=== PATIENT | male | born 1945 | race Caucasian/White ===

== ENCOUNTER → 2016-06-26 | Outpatient (CLI) | payer OTHER | LOC: C.LAB 22:20 | DX: Z02.83 Encounter for blood-alcohol and blood-drug test (principal) ==

== ENCOUNTER 2022-09-17 15:51 | Observation (INO) ==
--- NOTE | 2022-09-17 16:36 | Emergency Department Note ---
History of Present Illness General Chief complaint: Hypertension Stated complaint: REF BY DOC,HIGH BP,DIZZY Time Seen by Provider: 09/17/22 16:14 Source: patient and RN notes reviewed Mode of arrival: ambulatory Limitations: no limitations History of Present Illness Maximum Pain Intensity: 0 This patient is 76-year-old male who comes in after being sent over by his doctor. His blood pressure was 212/90 in the office has been feeling dizzy for the last 3 to 4 days he says mostly when he was walking or moving but now its been more persistent he says he drove here and feels okay at present. He had no fall or trauma he is on 2 blood pressure medications but takes them very sporadically and often misses the evening doses in particular. He denies any syncope or chest pain or shortness of breath. No difficult speaking or swallowing no headache no focal numbness weakness. no fever chills. no abdominal or back pain. Home Medications Medication Instructions Recorded Confirmed Type atorvastatin 40 mg tablet 40 mg PO QAM 11/08/19 09/17/22 History candesartan 32 mg tablet 32 mg PO QAM 11/08/19 09/17/22 History ibuprofen 200 mg tablet (Advil) 200 mg PO Q4 PRN Pain 11/08/19 09/17/22 History aspirin 81 mg tablet,delayed 81 mg PO DAILY #30 tabs 11/12/19 09/17/22 Rx release carvedilol 12.5 mg tablet 12.5 mg PO AMHS 11/16/21 09/17/22 History fluticasone propionate 50 2 spray intranasal QAM 11/16/21 09/17/22 History mcg/actuation nasal spray,suspension amlodipine 10 mg tablet 10 mg PO DAILY 11/17/21 09/17/22 History hydrochlorothiazide 25 mg tablet 25 mg PO DAILY 09/17/22 09/17/22 History meclizine 25 mg tablet 25 mg PO TID PRN Dizziness 09/17/22 09/17/22 History Allergies Allergy/AdvReac Type Severity Reaction Status Date / Time No Known Allergies Allergy Unverified 11/17/21 00:02 Past Med/Surg History Medical History (Updated 09/17/22 @ 23:17 by Carmine Moreno MD) Carotid stenosis Left > right side History of kidney stones Hyperlipidemia Hypertension Vertigo Surgical History History of appendectomy History of arthroscopy of left shoulder History of colonoscopy 2018 History of tonsillectomy Family History Other Heart disease Social History Smoking Status: Never smoker Second Hand Exposure: No; Do You Dip or Chew Tobacco: No; Tobacco Cessation Education Requested by Patient: No Hx Alcohol Use: Yes Alcohol type: hard liquor Hx Substance Use: Yes Last Used Substance: Days (ago) Last Used Substance Other:: a couple days ago Preferred Language: [place] [employer] Required: No Beliefs That Will Affect Care: None Current Living Situation: Spouse Current Living Situation Comment: Feels Safe at Home: Yes Safety Concerns: Feels Safe At This Time Assistive Devices: Glasses Review of Systems A total of 10 systems reviewed and were otherwise negative Physical Exam Vital Signs Vital Signs - 24 hr 09/17/22 15:59 09/17/22 16:18 09/17/22 16:18 Temperature 36.7 C Temperature Source Temporal Artery Scan Pulse Rate 64 Pulse Rate from SpO2 Sensor 60 Respiratory Rate 18 Respiratory Effort / Characteristics Non-Labored Respiratory Depth Normal Blood Pressure 198/104 H 178/87 H Blood Pressure Mean 135 133 Pulse Oximetry 96 97 Oxygen Delivery Method Room Air Sepsis Recent Fever Within 48 Hours No Sepsis New/Unexplained Change in Mental Status No Sepsis Action Taken by Nursing No Action Required 09/17/22 16:30 09/17/22 16:38 09/17/22 17:00 Temperature Temperature Source Pulse Rate 57 L 59 L 55 L Pulse Rate from SpO2 Sensor Respiratory Rate 21 14 Respiratory Effort / Characteristics Respiratory Depth Blood Pressure Blood Pressure Mean Pulse Oximetry Oxygen Delivery Method Sepsis Recent Fever Within 48 Hours Sepsis New/Unexplained Change in Mental Status Sepsis Action Taken by Nursing 09/17/22 17:30 09/17/22 17:50 09/17/22 17:50 Temperature Temperature Source Pulse Rate 58 L 59 L Pulse Rate from SpO2 Sensor Respiratory Rate 24 12 Respiratory Effort / Characteristics Respiratory Depth Blood Pressure 178/86 H Blood Pressure Mean 132 Pulse Oximetry 94 Oxygen Delivery Method Sepsis Recent Fever Within 48 Hours Sepsis New/Unexplained Change in Mental Status Sepsis Action Taken by Nursing 09/17/22 18:00 09/17/22 18:00 09/17/22 18:29 Temperature Temperature Source Pulse Rate 59 L Pulse Rate from SpO2 Sensor 59 L Respiratory Rate 16 Respiratory Effort / Characteristics Respiratory Depth Blood Pressure 169/85 H 211/90 H Blood Pressure Mean 124 111 Pulse Oximetry 96 Oxygen Delivery Method Sepsis Recent Fever Within 48 Hours Sepsis New/Unexplained Change in Mental Status Sepsis Action Taken by Nursing 09/17/22 18:29 09/17/22 18:30 09/17/22 18:30 Temperature Temperature Source Pulse Rate 59 L 58 L Pulse Rate from SpO2 Sensor 59 L 58 L Respiratory Rate 19 15 Respiratory Effort / Characteristics Respiratory Depth Blood Pressure 200/87 H Blood Pressure Mean 132 Pulse Oximetry 96 98 Oxygen Delivery Method Sepsis Recent Fever Within 48 Hours Sepsis New/Unexplained Change in Mental Status Sepsis Action Taken by Nursing 09/17/22 19:00 09/17/22 19:01 09/17/22 19:01 Temperature Temperature Source Pulse Rate 58 L 56 L Pulse Rate from SpO2 Sensor 58 L 57 L Respiratory Rate 15 19 Respiratory Effort / Characteristics Respiratory Depth Blood Pressure 225/87 H Blood Pressure Mean 108 Pulse Oximetry 97 96 Oxygen Delivery Method Sepsis Recent Fever Within 48 Hours Sepsis New/Unexplained Change in Mental Status Sepsis Action Taken by Nursing General: Well developed well nourished older male who in no acute distress, breathing comfortably on room air. Normal speech HEENT: Normal cephalic atraumatic. Pupils are equal round and reactive to light. Extraocular movements are intact. Oropharynx is pink with moist mucous membranes. No swelling of the mouth lips or tongue. Neck: Supple with a midline trachea. No meningeal signs or stiffness, no JVD or bruits. No Stridor. Chest: Clear to auscultation bilaterally. No wheezes or rhonchi. No increased work of breathing. Heart: Regular rate and rhythm without murmurs or gallops. Abdomen: Soft nontender, nondistended without rebound guarding or rigidity. Extremities: No cyanosis clubbing or edema. No calf tenderness or assymetry Spine/Back. Non tender to palpation. No CVA tenderness Skin: Good turgor without rashes. Neurologic exam: Cranial nerves two through 12 are intact. Motor and sensation are intact and symmetrical throughout. No tremor. Finger-nose intact. Normal gait. Negative Romberg. Normal heel-to-toe. Course Administered Medications Acetaminophen (Acetaminophen 325 Mg Tab) 650 mg PO Q4H PRN PRN Reason: pain/fever Stop: 10/17/22 20:30 Last Admin: 09/17/22 21:28 Dose: 650 mg Documented By: LAMINW Carvedilol (Carvedilol 12.5 Mg Tab) 12.5 mg PO AMHS GOLD Stop: 10/17/22 20:34 Last Admin: 09/17/22 21:50 Dose: 12.5 mg Documented By: JEANNIE Enoxaparin Sodium (Enoxaparin Inj 40 Mg/0.4 Ml Syr) 40 mg SQ Q24H GOLD Stop: 10/17/22 20:30 Last Admin: 09/17/22 21:21 Dose: 40 mg Documented By: JEANNIE Lorazepam (Lorazepam 0.5 Mg Tab) 0.5 mg PO TID PRN PRN Reason: Anxiety Stop: 10/17/22 20:34 Last Admin: 09/17/22 22:29 Dose: 0.5 mg Documented By: JEANNIE Discontinued Medications Aspirin (Aspirin 81 Mg Chew) 324 mg PO NOW STA Stop: 09/17/22 18:26 Last Admin: 09/17/22 18:29 Dose: 324 mg Documented By: JAQUI Hydralazine HCl (Hydralazine Hcl 20 Mg/Ml Vial) 10 mg IV NOW STA Stop: 09/17/22 19:04 Last Admin: 09/17/22 19:32 Dose: 10 mg Documented By: Enalaprilat 0.625 mg/ Syringe 10 mls @ 2 mls/min IV NOW STA Stop: 09/17/22 21:04 Last Admin: 09/17/22 21:21 Dose: 2 mls/min Documented By: JEANNIE Ioversol (Optiray 320 125ml) 119 ml IV ONCE ONE Stop: 09/17/22 17:49 Last Admin: 09/17/22 17:49 Dose: 119 ml Documented By: RUBI Medical Decision Making Differential Diagnosis Hypertensive emergency/emergency, hypertension, cranial process, vertigo, vascular disease, CVA, arrhythmia, electrolyte or metabolic abnormality, anemia Medical Records Attestation: I reviewed the patient's medical records. Home Medications Current Medication List: was personally reviewed by me Laboratory Data Attestation: I reviewed the patient's lab results. 09/17/22 16:25 06/20/23 16:25 Lab Results 09/17/22 09/17/22 09/17/22 Range/Units 16:25 16:25 16:25 WBC 10.76 (4.8-10.8) K/ul RBC 5.04 (4.70-6.10) M/uL Hgb 15.1 (14.0-18.0) g/dl Hct 44.3 (42.0-52.0) % MCV 87.9 (80.0-100.0) fL MCH 30.0 (25.0-34.0) pg MCHC 34.1 (32.0-36.0) g/dL RDW Std Deviation 39.1 (36.4-46.3) fL RDW Coeff of Nicolás 12.3 (11.5-14.5) % Plt Count 231 (130-400) K/uL MPV 10.1 (9.4-12.4) fL Immature Gran % (Auto) 0.3 % Neut % (Auto) 75.1 % Lymph % (Auto) 16.6 % [place] % (Auto) 5.9 % Eos % (Auto) 1.5 % Baso % (Auto) 0.6 % Neut # (Auto) 8.08 H (1.40-6.50) K/uL Lymph # (Auto) 1.79 (1.2-3.4) K/uL [place] # (Auto) 0.64 H (0.11-0.59) K/uL Eos # (Auto) 0.16 (0-0.50) K/uL Baso # (Auto) 0.06 (0-0.2) K/uL Immature Gran # (Auto) 0.03 (0.01-0.20) K/uL PT 10.5 (9.0-12.0) Seconds INR 1.0 (0.9-1.1) APTT 23.8 (21.0-31.0) Seconds PTT Ratio 0.8 Sodium 137 (136-145) mmol/L Potassium 4.2 (3.5-5.1) mmol/L Chloride 109 H (98-107) mmol/L Carbon Dioxide 22 (21-32) mmol/L Anion Gap 6 (3-11) BUN 27 H (6-23) mg/dl Creatinine 0.76 (0.6-1.4) mg/dl Est Cr Clr Drug Dosing 82.5 ml/min Est GFR ( Amer) 104.2 ml/min Est GFR (Non-Af Amer) 89.9 ml/min BUN/Creatinine Ratio 35.5 H (10-20) Glucose 105 H (70-99(Fasting)) mg/dl POC Glucose (70-99) mg/dl Calcium 9.4 (8.6-10.3) mg/dl Magnesium 2.1 (1.7-2.4) mg/dl Total Bilirubin 1.2 H (0.2-1.0) mg/dl AST 20 (13-39) U/L ALT 18 (7-52) U/L Alkaline Phosphatase 84 (34-104) U/L Troponin I High Sens 5.6 (0-20) pg/ml Total Protein 7.2 (6.0-8.3) gm/dl Albumin 4.3 (3.4-5.0) gm/dl Globulin 2.9 (2.5-4.0) gm/dl Albumin/Globulin Ratio 1.5 (0.9-2) SARS-CoV-2, RNA, NAAT (NEGATIVE) 09/17/22 09/17/22 Range/Units 16:40 18:29 WBC (4.8-10.8) K/ul RBC (4.70-6.10) M/uL Hgb (14.0-18.0) g/dl Hct (42.0-52.0) % MCV (80.0-100.0) fL MCH (25.0-34.0) pg MCHC (32.0-36.0) g/dL RDW Std Deviation (36.4-46.3) fL RDW Coeff of Nicolás (11.5-14.5) % Plt Count (130-400) K/uL MPV (9.4-12.4) fL Immature Gran % (Auto) % Neut % (Auto) % Lymph % (Auto) % [place] % (Auto) % Eos % (Auto) % Baso % (Auto) % Neut # (Auto) (1.40-6.50) K/uL Lymph # (Auto) (1.2-3.4) K/uL [place] # (Auto) (0.11-0.59) K/uL Eos # (Auto) (0-0.50) K/uL Baso # (Auto) (0-0.2) K/uL Immature Gran # (Auto) (0.01-0.20) K/uL PT (9.0-12.0) Seconds INR (0.9-1.1) APTT (21.0-31.0) Seconds PTT Ratio Sodium (136-145) mmol/L Potassium (3.5-5.1) mmol/L Chloride (98-107) mmol/L Carbon Dioxide (21-32) mmol/L Anion Gap (3-11) BUN (6-23) mg/dl Creatinine (0.6-1.4) mg/dl Est Cr Clr Drug Dosing ml/min Est GFR ( Amer) ml/min Est GFR (Non-Af Amer) ml/min BUN/Creatinine Ratio (10-20) Glucose (70-99(Fasting)) mg/dl POC Glucose 98 (70-99) mg/dl Calcium (8.6-10.3) mg/dl Magnesium (1.7-2.4) mg/dl Total Bilirubin (0.2-1.0) mg/dl AST (13-39) U/L ALT (7-52) U/L Alkaline Phosphatase (34-104) U/L Troponin I High Sens (0-20) pg/ml Total Protein (6.0-8.3) gm/dl Albumin (3.4-5.0) gm/dl Globulin (2.5-4.0) gm/dl Albumin/Globulin Ratio (0.9-2) SARS-CoV-2, RNA, NAAT NEGATIVE (NEGATIVE) Imaging Data Attestation: I personally reviewed and interpreted this imaging study as follows: My Impression: Head CTno hemorrhage or mass effect seen Radiologist's Impression: Head CT 09/17/22 16:26 CT angio head w con, CT angio neck with con, CT head/brain wo con CLINICAL HISTORY: 76 years-old Male with neuro deficit, acute stroke suspected. Acute dizziness with hypertension COMPARISON STUDY: 11/16/2021 TECHNIQUE: Unenhanced axial CT scan of the brain is performed. Subsequently, following the IV administration of 119 cc of Optiray, CT angiogram of the head and neck was performed from the aortic arch to the skull apex. Images are reviewed in the axial, sagittal, and coronal planes. 3-D MIPS images are created and assessed. IV contrast was administered without complication. All measurements were obtained according to NASCET criteria. A dose lowering technique was utilized adhering to the principles of ALARA. CT DOSE: 1200.29 mGy.cm FINDINGS: CT BRAIN: There is no acute intracranial hemorrhage, midline shift, intracranial mass, territorial ischemia or abnormal extra-axial collections. Involutional changes with chronic microvascular ischemic disease. Unchanged ventriculomegaly. No abnormal intra-axial or extra-axial enhancement. Mastoid air cells and middle ear cavities are clear. No calvarial fracture. Moderate to extensive mucosal thickening of the paranasal sinuses. Small sphenoid air fluid levels. Trace mastoid effusions.. CT ANGIOGRAM OF THE HEAD AND NECK: Atherosclerosis of the thoracic aorta. 4 vessel morphology of the aortic arch. Patency of the innominate and image subclavian arteries. Atherosclerotic plaque of the common and internal carotid arteries. There is less than 50% stenosis within the bilateral proximal cervical segments of the internal carotid arteries. 40% stenosis of the proximal left ICA. The bilateral anterior and middle cerebral arteries are also patent. Diminutive vertebral arteries. The left vertebral artery terminates into the PICA. No flow identified within the P1 and proximal P2 segments of the right vertebral artery. Multifocal areas of high-grade stenosis noted within the mid V2 segment. The distal V2 segment, V3 and V4 segments are patent. There is at least 90% stenosis of the mid basilar artery on image 82 series 5 with additional multifocal areas of basilar high- grade narrowing. origin of the posterior cerebral arteries with moderate multifocal stenosis. There is no aneurysm, or dissection identified. The dural venous sinuses appear patent. Nonspecific bronchial wall thickening. There is no pneumothorax. Unremarkable soft tissues. No acute fracture. Degenerative changes of the cervical spine. IMPRESSION: 1. No acute intracranial abnormality. 2. Involutional changes with chronic microvascular ischemic disease. 3. Multifocal high-grade stenoses of the right vertebral and basilar arteries. 4. Less than 50% stenosis of the internal carotid arteries. ACT 112: Negative or not required by law. The above report was generated using voice recognition software. It may contain grammatical, syntax or spelling errors. Electronically signed by: Fernie Ocampo M.D. 09/17/2022 6:11 PM Head CTA 09/17/22 16:26 CT angio head w con, CT angio neck with con, CT head/brain wo con CLINICAL HISTORY: 76 years-old Male with neuro deficit, acute stroke suspected. Acute dizziness with hypertension COMPARISON STUDY: 11/16/2021 TECHNIQUE: Unenhanced axial CT scan of the brain is performed. Subsequently, following the IV administration of 119 cc of Optiray, CT angiogram of the head and neck was performed from the aortic arch to the skull apex. Images are reviewed in the axial, sagittal, and coronal planes. 3-D MIPS images are created and assessed. IV contrast was administered without complication. All measurements were obtained according to NASCET criteria. A dose lowering technique was utilized adhering to the principles of ALARA. CT DOSE: 1200.29 mGy.cm FINDINGS: CT BRAIN: There is no acute intracranial hemorrhage, midline shift, intracranial mass, territorial ischemia or abnormal extra-axial collections. Involutional changes with chronic microvascular ischemic disease. Unchanged ventriculomegaly. No abnormal intra-axial or extra-axial enhancement. Mastoid air cells and middle ear cavities are clear. No calvarial fracture. Moderate to extensive mucosal thickening of the paranasal sinuses. Small sphenoid air fluid levels. Trace mastoid effusions.. CT ANGIOGRAM OF THE HEAD AND NECK: Atherosclerosis of the thoracic aorta. 4 vessel morphology of the aortic arch. Patency of the innominate and image subclavian arteries. Atherosclerotic plaque of the common and internal carotid arteries. There is less than 50% stenosis within the bilateral proximal cervical segments of the internal carotid arteries. 40% stenosis of the proximal left ICA. The bilateral anterior and middle cerebral arteries are also patent. Diminutive vertebral arteries. The left vertebral artery terminates into the PICA. No flow identified within the P1 and proximal P2 segments of the right vertebral artery. Multifocal areas of high-grade stenosis noted within the mid V2 segment. The distal V2 segment, V3 and V4 segments are patent. There is at least 90% stenosis of the mid basilar artery on image 82 series 5 with additional multifocal areas of basilar high- grade narrowing. origin of the posterior cerebral arteries with moderate multifocal stenosis. There is no aneurysm, or dissection identified. The dural venous sinuses appear patent. Nonspecific bronchial wall thickening. There is no pneumothorax. Unremarkable soft tissues. No acute fracture. Degenerative changes of the cervical spine. IMPRESSION: 1. No acute intracranial abnormality. 2. Involutional changes with chronic microvascular ischemic disease. 3. Multifocal high-grade stenoses of the right vertebral and basilar arteries. 4. Less than 50% stenosis of the internal carotid arteries. ACT 112: Negative or not required by law. The above report was generated using voice recognition software. It may contain grammatical, syntax or spelling errors. Electronically signed by: Fernie Ocampo M.D. 09/17/2022 6:11 PM Neck CTA 09/17/22 16:26 CT angio head w con, CT angio neck with con, CT head/brain wo con CLINICAL HISTORY: 76 years-old Male with neuro deficit, acute stroke suspected. Acute dizziness with hypertension COMPARISON STUDY: 11/16/2021 TECHNIQUE: Unenhanced axial CT scan of the brain is performed. Subsequently, following the IV administration of 119 cc of Optiray, CT angiogram of the head and neck was performed from the aortic arch to the skull apex. Images are reviewed in the axial, sagittal, and coronal planes. 3-D MIPS images are created and assessed. IV contrast was administered without complication. All measurements were obtained according to NASCET criteria. A dose lowering technique was utilized adhering to the principles of ALARA. CT DOSE: 1200.29 mGy.cm FINDINGS: CT BRAIN: There is no acute intracranial hemorrhage, midline shift, intracranial mass, territorial ischemia or abnormal extra-axial collections. Involutional changes with chronic microvascular ischemic disease. Unchanged ventriculomegaly. No abnormal intra-axial or extra-axial enhancement. Mastoid air cells and middle ear cavities are clear. No calvarial fracture. Moderate to extensive mucosal t hickening of the paranasal sinuses. Small sphenoid air fluid levels. Trace mastoid effusions.. CT ANGIOGRAM OF THE HEAD AND NECK: Atherosclerosis of the thoracic aorta. 4 vessel morphology of the aortic arch. Patency of the innominate and image subclavian arteries. Atherosclerotic plaque of the common and internal carotid arteries. There is less than 50% stenosis within the bilateral proximal cervical segments of the internal carotid arteries . 40% stenosis of the proximal left ICA. The bilateral anterior and middle cerebral arteries are also patent. Diminutive vertebral arteries. The left vertebral artery terminates into the PICA. No flow identified within the P1 and proximal P2 segments of the right vertebral artery. Multifocal areas of high- grade stenosis noted within the mid V2 segment. The distal V2 segment, V3 and V4 segments are patent. There is at least 90% stenosis of the mid basilar artery on image 82 series 5 with additional multifocal areas of basilar high-grade narrowing. origin of the posterior cerebral arteries with moderate multifocal stenosis. There is no aneurysm, or dissection identified. The dural venous sinuses appear patent. Nonspecific bronchial wall thickening. There is no pneumothorax. Unremarkable soft tissues. No acute fracture. Degenerative changes of the cervical spine. IMPRESSION: 1. No acute intracranial abnormality. 2. Involutional changes with chronic microvascular ischemic disease. 3. Multifocal high-grade stenoses of the right vertebral and basilar arteries. 4. Less than 50% stenosis of the internal carotid arteries. ACT 112: Negative or not required by law. The above report was generated using voice recognition software. It may contain grammatical, syntax or spelling errors. Electronically signed by: Fernie Ocampo M.D. 09/17/2022 6:11 PM ECG Data Attestation: I personally reviewed and interpreted this ECG as follows: Indication: + weakness Rate (beats per minute): 58 Rhythm: + sinus bradycardia ECG Intervals/blocks: + Normal QRS, + Normal QT and + Normal RI ECG [place]: + Normal ECG ST segments: + Normal ST segments ECG Findings: no PACs or no PVCs Comparison ECG Date: from (11/16/2021) Change: no significant change MDM Narrative This patient comes in as described above he was sent over after having high blood pressure and dizziness. He looks well on my exam and has a normal gait and neurologic exam. His blood pressure was high however it is coming down it was in the 170s over 90s when I went in to evaluate him. He has high blood pressure but does not take his medications as directed and likely this is the reason for his blood pressure being high. I did a full work-up to evaluate from a cardiac and neurologic standpoint. He was reassessed frequently. He looks well and has nothing to suggest acute hypertensive emergency or end organ damage. His EKG does not suggest acute coronary syndrome or significant arrhythmia. CAT scan shows no acute findings however I was concerned on the angiography he does have significant arterial disease including right vertebral basilar artery significant stenosis. He was given aspirin 324 mg here he did not take aspirin today. It is possible he could have had a small emboli from this and that is why he is dizzy. I do think he needs to have further neurologic work-up including an MRI. His symptoms are going on for 4 days and if this was from a stroke he is outside the window for thrombolytics or int ervention given his 4-day history but I do think he needs to be admitted for further inpatient treatment evaluation. [facility] and will admit him for these measures Continuous cardiac monitoring: Orders placed in EMR for continuous cardiac monitoring: Upon my evaluation patient was noted to be in normal sinus rhythm with a rate of 65 Impression & Plan Vertebral artery stenosis, Hypertension, Dizziness, Lab test negative for COVID-19 virus Discharge Plan Visit Data Chief Complaint: Hypertension Stated Complaint: REF BY DOC,HIGH BP,DIZZY ED Provider: Carmine Moreno Discharge Problem: Vertebral artery stenosis, Hypertension, Dizziness, Lab test negative for COVID-19 virus Patient Disposition: Admitted As Inpatient Discharge Instructions Interventions: ED Discharge Assessment Last Done: 09/17/22 20:23
[2022-09-17 16:59] LABS: Basophils # (auto) 0.06 K/uL (0-0.2); Basophils % (auto) 0.6 %; Eosinophils # (auto) 0.16 K/uL (0-0.50); Eosinophils % (auto) 1.5 %; Hematocrit (blood only) 44.3 % (42.0-52.0); Hemoglobin 15.1 g/dl (14.0-18.0); Immature Granulocytes # (auto) 0.03 K/uL (0.01-0.20); Immature Granulocytes % (auto) 0.3 %; Lymphocytes # (auto) 1.79 K/uL (1.2-3.4); Lymphocytes % (auto) 16.6 %; Mean Corpuscular Hgb Conc 34.1 g/dL (32.0-36.0); Mean Corpuscular Volume 87.9 fL (80.0-100.0); Mean Platelet Volume 10.1 fL (9.4-12.4); Monocytes # (auto) 0.64 K/uL (0.11-0.59); Monocytes % (auto) 5.9 %; Neutrophils # (auto) 8.08 K/uL (1.40-6.50); Neutrophils % (auto) 75.1 %; Platelet Count 231 K/uL (130-400); RDW Coefficient of Variation 12.3 % (11.5-14.5); RDW Standard Deviation 39.1 fL (36.4-46.3); Red Blood Count 5.04 M/uL (4.70-6.10); White Blood Count 10.76 K/ul (4.8-10.8)
[2022-09-17 17:11] LABS: Albumin Globulin Ratio 1.5 (0.9-2); Albumin Level 4.3 gm/dl (3.4-5.0); BUN Creatinine Ratio 35.5 (10-20); Bilirubin,Total 1.2 mg/dl (0.2-1.0); Calcium 9.4 mg/dl (8.6-10.3); Creatinine Clr Calc Pharmacy 82.5 ml/min; Est GFR (African American) 104.2 ml/min; Est GFR (Non-African American) 89.9 ml/min; Globulin 2.9 gm/dl (2.5-4.0); Magnesium 2.1 mg/dl (1.7-2.4); Potassium 4.2 mmol/L (3.5-5.1); Total Protein 7.2 gm/dl (6.0-8.3)
[2022-09-17 17:18] LABS: Troponin I High Sensitivity 5.6 pg/ml (0-20)
[2022-09-17 17:24] LABS: Partial Thromboplastin Ratio 0.8; Partial Thromboplastin Time 23.8 Seconds (21.0-31.0); Prothrombin Time 10.5 Seconds (9.0-12.0)
[2022-09-17] MEDS ORDERED: OPTIRAY 320 125ml IV ONE (17:48)
--- NOTE | 2022-09-17 18:14 | CT Scan Report ---
CT angio head w con, CT angio neck with con, CT head/brain wo con CLINICAL HISTORY: 76 years-old Male with neuro deficit, acute stroke suspected. Acute dizziness wi th hypertension COMPARISON STUDY: 11/16/2021 TECHNIQUE: Unenhanced axial CT scan of the brain is performed. Subsequently, following the IV adminis tration of 119 cc of Optiray, CT angiogram of the head and neck was performed from the aortic arch to the skull apex. Images are reviewed in the axial, sagittal, and coronal planes. 3-D MIPS images are created and assessed. IV contrast was administered without complication. All measurements were obtain ed according to NASCET criteria. A dose lowering technique was utilized adhering to the principles of ALARA. CT DOSE: 1200.29 mGy.cm FINDINGS: CT BRAIN: There is no acute intracranial hemorrhage, midline shift, intracranial mass, territorial ischemia or abnormal extra-axial collections. Involutional changes with chronic microvascular ischemic disease. U nchanged ventriculomegaly. No abnormal intra-axial or extra-axial enhancement. Mastoid air cells and middle ear cavities are clear. No calvarial fracture. Moderate to extensive mucosal thickening of th e paranasal sinuses. Small sphenoid air fluid levels. Trace mastoid effusions.. CT ANGIOGRAM OF THE HEAD AND NECK: Atherosclerosis of the thoracic aorta. 4 vessel morphology of the aortic arch. Patency of the innomin ate and image subclavian arteries. Atherosclerotic plaque of the common and internal carotid arteries . There is less than 50% stenosis within the bilateral proximal cervical segments of the internal car otid arteries. 40% stenosis of the proximal left ICA. The bilateral anterior and middle cerebral nicolette kailyn are also patent. Diminutive vertebral arteries. The left vertebral artery terminates into the PI CA. No flow identified within the P1 and proximal P2 segments of the right vertebral artery. Multifoc al areas of high-grade stenosis noted within the mid V2 segment. The distal V2 segment, V3 and V4 seg ments are patent. There is at least 90% stenosis of the mid basilar artery on image 82 series 5 with additional multifocal areas of basilar high-grade narrowing. origin of the posterior cerebral a rteries with moderate multifocal stenosis. There is no aneurysm, or dissection identified. The dural venous sinuses appear patent. Nonspecific bronchial wall thickening. There is no pneumothorax. Unremarkable soft tissues. No acute fracture. Degenerative changes of the cervical spine. IMPRESSION: 1. No acute intracranial abnormality. 2. Involutional changes with chronic microvascular ischemic disease. 3. Multifocal high-grade stenoses of the right vertebral and basilar arteries. 4. Less than 50% stenosis of the internal carotid arteries. ACT 112: Negative or not required by law. The above report was generated using voice recognition software. It may contain grammatical, syntax o r spelling errors. Electronically signed by: Fernie Ocampo M.D. 09/17/2022 6:11 PM
[2022-09-17] MEDS ORDERED: ASPIRIN 81 MG CHEW PO STA (18:25)
[2022-09-17] MEDS ORDERED: hydrALAZINE HCL 20 MG/ML VIAL IV STA (19:03)
--- NOTE | 2022-09-17 20:08 | History & Physical Report ---
Date of Service September 17, 2022 Assessment & Plan (1) Dizziness: (2) Hypertensive urgency: (3) Vertebral artery stenosis: (4) Vertigo: Plan Dizziness: -normal neuro exam - symptoms are likely 2/2 BPPV ---- PT/OT -due to current finding of R vertebral artery stenosis and b/l carotid aa stenosis will get MRI Brain --- neurology consult as well -pt is already on statin and aspirin - outpt neurosurgery consult - admit to tele HTN urgency: -likely 2/2 non compliance with medication -will continue pts home meds for now - HR is slightly low --- will monitor the HR and modify Coreg dose accordingly -prn hydralazine for elevated BP HLD and vertigo:-continue statin but will hold meclizine Diet: Heart Healthy DVT PPx: Lovenox Code Status: FULL CODE Emergency Contact: -Sania [phone] History of Present Illness Chief Complaint: dizziness Primary Care Provider: Len Banda MD Pt is a 76 y/o M with hx of HTN (non compliant with medication), HLD, Vertigo, b/l carotid artery stenosis came into the ER with 1 week of dizziness and elevated BP. Per pt he has been having dizziness (room spinning sensation) for 1 week, which is getting worse. Dizziness is worse in the morning and improves through out the day. Worse with movement. Denied any associated extremity weakness, palpitation, change in vision, BOLAND, slur speech or recent viral infection or ear congestion. He does not take his HTN meds regularly. Denied any daily ETOH use. Allergies Allergy/AdvReac Type Severity Reaction Status Date / Time No Known Allergies Allergy Unverified 11/17/21 00:02 Home Medications Medication Instructions Recorded Confirmed Type atorvastatin 40 mg tablet 40 mg PO QAM 11/08/19 09/17/22 History candesartan 32 mg tablet 32 mg PO QAM 11/08/19 09/17/22 History ibuprofen 200 mg tablet (Advil) 200 mg PO Q4 PRN Pain 11/08/19 09/17/22 History aspirin 81 mg tablet,delayed 81 mg PO DAILY #30 tabs 11/12/19 09/17/22 Rx release carvedilol 12.5 mg tablet 12.5 mg PO AMHS 11/16/21 09/17/22 History fluticasone propionate 50 2 spray intranasal QAM 11/16/21 09/17/22 History mcg/actuation nasal spray,suspension amlodipine 10 mg tablet 10 mg PO DAILY 11/17/21 09/17/22 History hydrochlorothiazide 25 mg tablet 25 mg PO DAILY 09/17/22 09/17/22 History meclizine 25 mg tablet 25 mg PO TID PRN Dizziness 09/17/22 09/17/22 History Past Med/Surg History Medical History (Updated 09/17/22 @ 20:06 by Blossom Lugo MD) Carotid stenosis Left > right side History of kidney stones Hyperlipidemia Hypertension Vertigo Surgical History History of appendectomy History of arthroscopy of left shoulder History of colonoscopy 2018 History of tonsillectomy Family History Other Heart disease Social History Smoking Status: Current some day smoker Second Hand Exposure: Yes (as a child); Do You Dip or Chew Tobacco: No; Hx Alcohol Use: Yes Alcohol type: beer, wine and hard liquor Hx Substance Use: Yes Last Used Substance: Days (ago) Last Used Substance Other:: a couple days ago Preferred Language: Gambian Beliefs That Will Affect Care: None Current Living Situation: Spouse Current Living Situation Comment: Feels Safe at Home: Yes Assistive Devices: Glasses Review of Systems Review of Systems: At least 10 Review of systems were reviewed and all negative except as indicated in HPI Physical Exam Physical Exam: General:. NAD, well developed, well nourished, average body habitus HEENT:. Normocephalic and atraumatic, Normal Conjunctiva, EOMI, Sclera is non- icteric Lungs:. No signs of respiratory distress, CTA, no wheezing or crackles Heart:. Normal S1, S2, no murmur Abdominal:. ND, Soft, NT MSK:. No deformities of UE and LE, No leg edema Neuro: CN II-XII intact, PERRLA, normal motor strength Psych:. AAOx3, normal affect Results & Data Results & Data Vital Signs (Past 12 Hours) Vital Signs Temp Pulse Resp BP Pulse Ox O2 Del Method 09/17/22 19:40 186/88 H 09/17/22 19:40 56 L 16 97 09/17/22 19:31 55 L 16 96 09/17/22 19:31 212/81 H 09/17/22 19:30 53 L 13 95 09/17/22 19:01 225/87 H 09/17/22 19:01 56 L 19 96 09/17/22 19:00 58 L 15 97 09/17/22 18:30 58 L 15 98 09/17/22 18:30 200/87 H 09/17/22 18:29 59 L 19 96 09/17/22 18:29 211/90 H 09/17/22 18:00 59 L 16 96 09/17/22 18:00 169/85 H 09/17/22 17:50 178/86 H 09/17/22 17:50 59 L 12 94 09/17/22 17:30 58 L 24 09/17/22 17:00 55 L 14 09/17/22 16:38 59 L 09/17/22 16:30 57 L 21 09/17/22 16:18 97 09/17/22 16:18 178/87 H 09/17/22 15:59 36.7 C 64 18 198/104 H 96 Room Air Laboratory Results Short CBC 09/17/22 Range/Units 16:25 WBC 10.76 (4.8-10.8) K/ul Hgb 15.1 (14.0-18.0) g/dl Hct 44.3 (42.0-52.0) % Plt Count 231 (130-400) K/uL BMP 09/17/22 16:25 Sodium 137 Potassium 4.2 Chloride 109 H Carbon Dioxide 22 BUN 27 H Creatinine 0.76 Glucose 105 H Calcium 9.4 Liver Function 09/17/22 Range/Units 16:25 Total Bilirubin 1.2 H (0.2-1.0) mg/dl AST 20 (13-39) U/L ALT 18 (7-52) U/L Alkaline Phosphatase 84 (34-104) U/L Albumin 4.3 (3.4-5.0) gm/dl Diagnostic Findings Head CT 09/17/22 16:26 CT angio head w con, CT angio neck with con, CT head/brain wo con CLINICAL HISTORY: 76 years-old Male with neuro deficit, acute stroke suspected. Acute dizziness with hypertension COMPARISON STUDY: 11/16/2021 TECHNIQUE: Unenhanced axial CT scan of the brain is performed. Subsequently, following the IV administration of 119 cc of Optiray, CT angiogram of the head and neck was performed from the aortic arch to the skull apex. Images are reviewed in the axial, sagittal, and coronal planes. 3-D MIPS images are created and assessed. IV contrast was administered without complication. All measurements were obtained according to NASCET criteria. A dose lowering technique was utilized adhering to the principles of ALARA. CT DOSE: 1200.29 mGy.cm FINDINGS: CT BRAIN: There is no acute intracranial hemorrhage, midline shift, intracranial mass, territorial ischemia or abnormal extra-axial collections. Involutional changes with chronic microvascular ischemic disease. Unchanged ventriculomegaly. No abnormal intra-axial or extra-axial enhancement. Mastoid air cells and middle ear cavities are clear. No calvarial fracture. Moderate to extensive mucosal thickening of the paranasal sinuses. Small sphenoid air fluid levels. Trace mastoid effusions.. CT ANGIOGRAM OF THE HEAD AND NECK: Atherosclerosis of the thoracic aorta. 4 vessel morphology of the aortic arch. Patency of the innominate and image subclavian arteries. Atherosclerotic plaque of the common and internal carotid arteries. There is less than 50% stenosis within the bilateral proximal cervical segments of the internal carotid arteries. 40% stenosis of the proximal left ICA. The bilateral anterior and middle cerebral arteries are also patent. Diminutive vertebral arteries. The left vertebral artery terminates into the PICA. No flow identified within the P1 and proximal P2 segments of the right vertebral artery. Multifocal areas of high-grade stenosis noted within the mid V2 segment. The distal V2 segment, V3 and V4 segments are patent. There is at least 90% stenosis of the mid basilar artery on image 82 series 5 with additional multifocal areas of basilar high- grade narrowing. origin of the posterior cerebral arteries with moderate multifocal stenosis. There is no aneurysm, or dissection identified. The dural venous sinuses appear patent. Nonspecific bronchial wall thickening. There is no pneumothorax. Unremarkable soft tissues. No acute fracture. Degenerative changes of the cervical spine. IMPRESSION: 1. No acute intracranial abnormality. 2. Involutional changes with chronic microvascular ischemic disease. 3. Multifocal high-grade stenoses of the right vertebral and basilar arteries. 4. Less than 50% stenosis of the internal carotid arteries. ACT 112: Negative or not required by law. The above report was generated using voice recognition software. It may contain grammatical, syntax or spelling errors. Electronically signed by: Fernie Ocampo M.D. 09/17/2022 6:11 PM Head CTA 09/17/22 16:26 CT angio head w con, CT angio neck with con, CT head/brain wo con CLINICAL HISTORY: 76 years-old Male with neuro deficit, acute stroke suspected. Acute dizziness with hypertension COMPARISON STUDY: 11/16/2021 TECHNIQUE: Unenhanced axial CT scan of the brain is performed. Subsequently, following the IV administration of 119 cc of Optiray, CT angiogram of the head and neck was performed from the aortic arch to the skull apex. Images are reviewed in the axial, sagittal, and coronal planes. 3-D MIPS images are created and assessed. IV contrast was administered without complication. All measurements were obtained according to NASCET criteria. A dose lowering technique was utilized adhering to the principles of ALARA. CT DOSE: 1200.29 mGy.cm FINDINGS: CT BRAIN: There is no acute intracranial hemorrhage, midline shift, intracranial mass, territorial ischemia or abnormal extra-axial collections. Involutional changes with chronic microvascular ischemic disease. Unchanged ventriculomegaly. No abnormal intra-axial or extra-axial enhancement. Mastoid air cells and middle ear cavities are clear. No calvarial fracture. Moderate to extensive mucosal thickening of the paranasal sinuses. Small sphenoid air fluid levels. Trace mastoid effusions.. CT ANGIOGRAM OF THE HEAD AND NECK: Atherosclerosis of the thoracic aorta. 4 vessel morphology of the aortic arch. Patency of the innominate and image subclavian arteries. Atherosclerotic plaque of the common and internal carotid arteries. There is less than 50% stenosis within the bilateral proximal cervical segments of the internal carotid arteries. 40% stenosis of the proximal left ICA. The bilateral anterior and middle cerebral arteries are also patent. Diminutive vertebral arteries. The left vertebral artery terminates into the PICA. No flow identified within the P1 and proximal P2 segments of the right vertebral artery. Multifocal areas of high-grade stenosis noted within the mid V2 segment. The distal V2 segment, V3 and V4 segments are patent. There is at least 90% stenosis of the mid basilar artery on image 82 series 5 with additional multifocal areas of basilar high- grade narrowing. origin of the posterior cerebral arteries with moderate multifocal stenosis. There is no aneurysm, or dissection identified. The dural venous sinuses appear patent. Nonspecific bronchial wall thickening. There is no pneumothorax. Unremarkable soft tissues. No acute fracture. Degenerative changes of the cervical spine. IMPRESSION: 1. No acute intracranial abnormality. 2. Involutional changes with chronic microvascular ischemic disease. 3. Multifocal high-grade stenoses of the right vertebral and basilar arteries. 4. Less than 50% stenosis of the internal carotid arteries. ACT 112: Negative or not required by law. The above report was generated using voice recognition software. It may contain grammatical, syntax or spelling errors. Electronically signed by: Fernie Ocampo M.D. 09/17/2022 6:11 PM Neck CTA 09/17/22 16:26 CT angio head w con, CT angio neck with con, CT head/brain wo con CLINICAL HISTORY: 76 years-old Male with neuro deficit, acute stroke suspected. Acute dizziness with hypertension COMPARISON STUDY: 11/16/2021 TECHNIQUE: Unenhanced axial CT scan of the brain is performed. Subsequently, following the IV administration of 119 cc of Optiray, CT angiogram of the head and neck was performed from the aortic arch to the skull apex. Images are reviewed in the axial, sagittal, and coronal planes. 3-D MIPS images are created and assessed. IV contrast was administered without complication. All measurements were obtained according to NASCET criteria. A dose lowering technique was utilized adhering to the principles of ALARA. CT DOSE: 1200.29 mGy.cm FINDINGS: CT BRAIN: There is no acute intracranial hemorrhage, midline shift, intracranial mass, territorial ischemia or abnormal extra-axial collections. Involutional changes with chronic microvascular ischemic disease. Unchanged ventriculomegaly. No abnormal intra-axial or extra-axial enhancement. Mastoid air cells and middle ear cavities are clear. No calvarial fracture. Moderate to extensive mucosal thickening of the paranasal sinuses. Small sphenoid air fluid levels. Trace mastoid effusions.. CT ANGIOGRAM OF THE HEAD AND NECK: Atherosclerosis of the thoracic aorta. 4 vessel morphology of the aortic arch. Patency of the innominate and image subclavian arteries. Atherosclerotic plaque of the common and internal carotid arteries. There is less than 50% stenosis within the bilateral proximal cervical segments of the internal carotid arteries. 40% stenosis of the proximal left ICA. The bilateral anterior and middle cerebral arteries are also patent. Diminutive vertebral arteries. The left vertebral artery terminates into the PICA. No flow identified within the P1 and proximal P2 segments of the right vertebral artery. Multifocal areas of high-grade stenosis noted within the mid V2 segment. The distal V2 segment, V3 and V4 segments are patent. There is at least 90% stenosis of the mid basilar artery on image 82 series 5 with additional multifocal areas of basilar high- grade narrowing. origin of the posterior cerebral arteries with moderate multifocal stenosis. There is no aneurysm, or dissection identified. The dural venous sinuses appear patent. Nonspecific bronchial wall thickening. There is no pneumothorax. Unremarkable soft tissues. No acute fracture. Degenerative changes of the cervical spine. IMPRESSION: 1. No acute intracranial abnormality. 2. Involutional changes with chronic microvascular ischemic disease. 3. Multifocal high-grade stenoses of the right vertebral and basilar arteries. 4. Less than 50% stenosis of the internal carotid arteries. ACT 112: Negative or not required by law. The above report was generated using voice recognition software. It may contain grammatical, syntax or spelling errors. Electronically signed by: Fernie Ocampo M.D. 09/17/2022 6:11 PM Code Status & VTE Plan VTE Prophylaxis Plan VTE Prophylaxis will be ordered: Yes
[2022-09-17] MEDS ORDERED: ONDANSETRON INJ 2 MG/ML 2 ML VIAL IV PRN (20:31)
[2022-09-17] MEDS ORDERED: LORazepam 0.5 MG TAB PO PRN (20:35)
[2022-09-17] MEDS ORDERED: ENALAPRILAT 0.625 MG in SYRINGE 9.5 ML IV STA (21:00)
[2022-09-17] MEDS ORDERED: carvediloL 12.5 MG TAB PO SCH (21:00)
[2022-09-17] MEDS: ENOXAPARIN INJ 40 MG/0.4 ML SYR SQ SCH (21:21)
[2022-09-17] MEDS: ACETAMINOPHEN 325 MG TAB PO PRN (21:28)
[2022-09-17] MEDS: carvediloL 12.5 MG TAB PO SCH (21:50)
[2022-09-17] MEDS ORDERED: GADOBUTROL 65ML VIAL IV ONE (23:46)
--- NOTE | 2022-09-18 00:07 | Magnetic Resonance Report ---
Exam(s): MRI HEAD W/WO Contrast IV Amt: 8cc gadavist EXAM: MR Head Without and With Intravenous Contrast CLINICAL HISTORY: dizziness and PAD. TECHNIQUE: Magnetic resonance images of the head/brain without and with intravenous contrast in multiple planes. CONTRAST: Patient received 8cc Gadavist of IV contrast COMPARISON: CTA head performed at 1740 hrs. FINDINGS: Brain: Diffusion-weighted imaging is negative for acute or subacute infarct. Abnormal T2 signal in the deep cerebral white matter is consistent with small vessel ischemic/degenerative changes. The cerebral sulci are prominent consistent with brain atrophy. No abnormal parenchymal enhancement following contrast administration. No hemorrhage. Midline shift: The expected midline structures are identified and are unremarkable. Ventricles: Unremarkable. No ventriculomegaly. Bones/joints: Unremarkable. Sinuses: Mucosal thickening involving the frontal sinuses, several ethmoid air cells and the maxillary sinuses is noted. No air-fluid levels. Mastoid air cells: Unremarkable as visualized. No mastoid effusion. Orbits: Unremarkable as visualized. IMPRESSION: 1. No evidence of acute or subacute infarct. 2. Small vessel ischemic/degenerative changes. 3. Presumed age-related chronic-appearing parenchymal involutional changes. No abnormal enhancement. Electronically signed by: Warren Baum MD 09/18/22 00:06 AM
[2022-09-18 06:33] LABS: Basophils # (auto) 0.07 K/uL (0-0.2); Basophils % (auto) 0.8 %; Eosinophils # (auto) 0.59 K/uL (0-0.50); Eosinophils % (auto) 6.9 %; Hematocrit (blood only) 42.9 % (42.0-52.0); Hemoglobin 14.6 g/dl (14.0-18.0); Immature Granulocytes # (auto) 0.04 K/uL (0.01-0.20); Immature Granulocytes % (auto) 0.5 %; Lymphocytes # (auto) 2.53 K/uL (1.2-3.4); Lymphocytes % (auto) 29.5 %; Mean Corpuscular Hemoglobin 30.2 pg (25.0-34.0); Mean Corpuscular Volume 88.6 fL (80.0-100.0); Mean Platelet Volume 9.7 fL (9.4-12.4); Monocytes # (auto) 0.65 K/uL (0.11-0.59); Monocytes % (auto) 7.6 %; Neutrophils # (auto) 4.69 K/uL (1.40-6.50); Neutrophils % (auto) 54.7 %; Platelet Count 226 K/uL (130-400); RDW Coefficient of Variation 12.4 % (11.5-14.5); RDW Standard Deviation 40.5 fL (36.4-46.3); Red Blood Count 4.84 M/uL (4.70-6.10); White Blood Count 8.57 K/ul (4.8-10.8)
[2022-09-18 06:52] LABS: Albumin Globulin Ratio 1.5 (0.9-2); Albumin Level 3.8 gm/dl (3.4-5.0); BUN Creatinine Ratio 32.1 (10-20); Bilirubin,Total 1.1 mg/dl (0.2-1.0); Calcium 8.9 mg/dl (8.6-10.3); Chol HDL Ratio 3.2 (0-5); Creatinine Clr Calc Pharmacy 80.4 ml/min; Est GFR (African American) 103.1 ml/min; Est GFR (Non-African American) 88.9 ml/min; Globulin 2.5 gm/dl (2.5-4.0); Magnesium 2.1 mg/dl (1.7-2.4); Potassium 3.8 mmol/L (3.5-5.1); Total Protein 6.3 gm/dl (6.0-8.3)
[2022-09-18 07:05] LABS: Estimated Average Glucose 114 mg/dl; Hemoglobin A1C 5.6 % (4.5-5.6)
[2022-09-18] MEDS: ATORVASTATIN 40 MG TAB PO SCH (07:51)
[2022-09-18] MEDS: carvediloL 12.5 MG TAB PO SCH ×2 (07:51→20:02)
[2022-09-18] MEDS: ASPIRIN 81 MG ECTAB PO SCH (07:51)
[2022-09-18] MEDS: hydroCHLOROthiazide 25 MG TAB PO SCH (07:51)
[2022-09-18] MEDS: LOSARTAN POTASSIUM 50 MG TAB PO SCH (07:51)
[2022-09-18] MEDS: amLODIPine BESYLATE 5 MG TAB PO SCH (07:51)
--- NOTE | 2022-09-18 10:20 | Neurology Consultation ---
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 Given the relatively unchanged vascular stenosis, this is likely secondary to his hypertension. Can not rule out peripheral vertigo but with negative MRI imaging would not change his outpatient stroke prevention medication. Discussed with his daughter Dr. Soto by phone who is in agreement. No further neurologic workup, not a candidate for cerebrovascular surgical intervention. We will sign off, please contact us with any further questions. Telehealth Consultation Telehealth Information Telehealth Information: I performed this visit using a real-time telehealth connection between my location and the patients location ([facility]). After connecting through interactive tele-video, patient was identified by name and date of and/or wristband check.Patient (or authorized healthcare telephone claims representative) was informed that this was a telemedicine visit and it was being conducted confidentially over secure lines. My office door was closed and no one else was present in the room with me.Patient (or authorized healthcare telephone claims representative) provided consent to proceed with the visit, expressed an understanding of privacy and security of the telemedicine visit, and gave permission to have a hospital telephone claims representative in the room in order to assist with the visit and to conduct portions of the visit, as needed. I informed the patient (or authorized healthcare telephone claims representative) that I reviewed their record and presented the opportunity for them to ask any questions regarding the visit today. The patient agreed to participate. History of Present Illness Reason for Consultation: Vertigo Requesting Physician: Dr. Mcgregor Attending Physician: Lola Mcgregor MD History of Present Illness Kory Palumbo is a 76 yo M presenting with a week of vertigo, worse with movement, in the setting of uncontrolled HTN and known vertebrobasilar disease. The patient reports that his vertigo is improving since he has been admitted but is not yet resolved. When laying still he has no symptoms. He believes there is a correlation to the sinus pressure and headache is currently has in the frontal sinuses. Allergies Allergy/AdvReac Type Severity Reaction Status Date / Time No Known Allergies Allergy Unverified 11/17/21 00:02 Home Medications Medication Instructions Recorded Confirmed Type atorvastatin 40 mg tablet 40 mg PO QAM 11/08/19 09/17/22 History candesartan 32 mg tablet 32 mg PO QAM 11/08/19 09/17/22 History ibuprofen 200 mg tablet (Advil) 200 mg PO Q4 PRN Pain 11/08/19 09/17/22 History aspirin 81 mg tablet,delayed 81 mg PO DAILY #30 tabs 11/12/19 09/17/22 Rx release carvedilol 12.5 mg tablet 12.5 mg PO AMHS 11/16/21 09/17/22 History fluticasone propionate 50 2 spray intranasal QAM 11/16/21 09/17/22 History mcg/actuation nasal spray,suspension amlodipine 10 mg tablet 10 mg PO DAILY 11/17/21 09/17/22 History hydrochlorothiazide 25 mg tablet 25 mg PO DAILY 09/17/22 09/17/22 History meclizine 25 mg tablet 25 mg PO TID PRN Dizziness 09/17/22 09/17/22 History Patient History Medical History (Updated 09/17/22 @ 23:17 by Carmine Moreno MD) Carotid stenosis Left > right side History of kidney stones Hyperlipidemia Hypertension Vertigo Surgical History History of appendectomy History of arthroscopy of left shoulder History of colonoscopy 2018 History of tonsillectomy Family History Other Heart disease Social History Smoking Status: Never smoker Second Hand Exposure: No; Do You Dip or Chew Tobacco: No; Tobacco Cessation Education Requested by Patient: No Hx Alcohol Use: Yes Alcohol type: hard liquor Hx Substance Use: Yes Last Used Substance: Days (ago) Last Used Substance Other:: a couple days ago Preferred Language: Yi Sugar Laboratory Assistant Required: No Beliefs That Will Affect Care: None Current Living Situation: Spouse Current Living Situation Comment: Feels Safe at Home: Yes Safety Concerns: Feels Safe At This Time Assistive Devices: Glasses Review of Systems +vertigo Physical Exam Neurological Examination: Mental Status: Awake and alert. Oriented to person, place, and time. Fluent. Comprehension intact. Affect appropriate. Cranial Nerves: II: , pupils 3/3 to 2/2, III/IV/: Versions intact without nystagmus, no gaze preference. V: Facial sensation symmetric to light touch VII: Facial expression symmetric VIII: Hearing intact to voice IX/X: Palate elevates symmetrically XI: Shoulder shrug symmetric XII: Tongue midline Motor: Strength was symmetric and antigravity throughout. Pronator drift was absent. There were no abnormal movements. Coordination: Movements were non-ataxic Reflexes: Unable to assess over telemedicine Results & Data Vital Signs (Past 12 Hours) Vital Signs Temp Pulse Pulse Resp BP Pulse Ox O2 Del Method 09/18/22 07:47 36.9 C 61 18 163/74 H 95 Room Air 09/18/22 07:22 48 L 09/18/22 03:00 36.6 C 54 L 20 105/64 96 Room Air 09/17/22 23:53 61 Laboratory Results Abnormal lab results 09/17/22 09/17/22 09/18/22 Range/Units 16:25 16:25 06:10 Neut # (Auto) 8.08 H (1.40-6.50) K/uL Kimble # (Auto) 0.64 H 0.65 H (0.11-0.59) K/uL Eos # (Auto) 0.59 H (0-0.50) K/uL Chloride 109 H (98-107) mmol/L BUN 27 H (6-23) mg/dl BUN/Creatinine Ratio 35.5 H (10-20) Glucose 105 H (70-99(Fasting)) mg/dl Total Bilirubin 1.2 H (0.2-1.0) mg/dl 09/18/22 Range/Units 06:10 Neut # (Auto) (1.40-6.50) K/uL Kimble # (Auto) (0.11-0.59) K/uL Eos # (Auto) (0-0.50) K/uL Chloride 108 H (98-107) mmol/L BUN 25 H (6-23) mg/dl BUN/Creatinine Ratio 32.1 H (10-20) Glucose 104 H (70-99(Fasting)) mg/dl Total Bilirubin 1.1 H (0.2-1.0) mg/dl Diagnostic Findings MRI brain - Unremarkable CTA head and neck - VBA stenosis, unchanged from Exinda images from 2013
[2022-09-18] MEDS ORDERED: BUTALBITAL/ACETAMIN/CAFFEINE TAB PO PRN (14:52)
--- NOTE | 2022-09-18 15:22 | Electrocardiogram Report ---
Test Reason : Blood Pressure : / mmHG Vent. Rate : 058 BPM Atrial Rate : 058 BPM P-R Int : 204 ms QRS Dur : 084 ms QT Int : 424 ms P-R-T Axes : -06 -20 008 degrees QTc Int : 416 ms Sinus bradycardia Otherwise normal ECG When compared with ECG of 16-NOV-2021 22:56, T wave amplitude has increased in Lateral leads Confirmed by Alan Ovalles ([id number]) on 09/18/2022 3:22:14 PM Referred By: Confirmed By:Alan Ovalles
--- NOTE | 2022-09-18 17:25 | Hospitalist Progress Note ---
Date of Service September 18, 2022 Assessment & Plan (1) Dizziness: (2) Hypertensive urgency: (3) Vertebral artery stenosis: (4) Vertigo: Plan Dizziness: -imaging here shows vertebral artery stenosis which is chronic -MRI brain negative for stroke -Will need OP PT HTN urgency: -likely 2/2 non compliance with medication -continue home medications. BP is improved Headache -due to sinus pressure and elevated BP -fioricet PRN HLD :-continue statin Diet: Heart Healthy DVT PPx: Lovenox Code Status: FULL CODE Disposition- Likely discharge home tomorrow if BP remains stable Admission and Anticipated Discharge Date Admission Date: September 17, 2022 Subjective Still reports dizziness, BP is improved Reports headache, sinus congestion Anxious to go home Review of Systems Review of Systems: as above Physical Exam Physical Exam: No acute distress, non toxic Respiratory: breathing comfortably on room air, no wheezing/rhonchi Cardiovascular: regular rate and rhythm, no murmurs/rubs Gastrointestinal (Abdomen): soft, non tender, non distended Musculoskeletal: no edema Neurologic: awake, alert, spontaneously moving extremities Results & Data Results & Data Vital Signs (Past 12 Hours) Vital Signs Temp Pulse Pulse Resp BP Pulse Ox O2 Del Method 09/18/22 15:00 62 09/18/22 15:25 36.6 C 61 18 138/72 94 Room Air 09/18/22 11:44 36.8 C 66 18 178/80 H 94 Room Air 09/18/22 07:47 36.9 C 61 18 163/74 H 95 Room Air 09/18/22 07:22 48 L (3) Vertebral artery stenosis Laterality: right Qualified Code(s): I65.01 - Occlusion and stenosis of right vertebral artery
[2022-09-18] MEDS: ACETAMINOPHEN 325 MG TAB PO PRN (19:46)
[2022-09-18] MEDS: ENOXAPARIN INJ 40 MG/0.4 ML SYR SQ SCH (19:46)
[2022-09-19] MEDS: LOSARTAN POTASSIUM 50 MG TAB PO SCH (07:56)
[2022-09-19] MEDS: hydroCHLOROthiazide 25 MG TAB PO SCH (07:56)
[2022-09-19] MEDS: amLODIPine BESYLATE 5 MG TAB PO SCH (07:56)
[2022-09-19] MEDS: ASPIRIN 81 MG ECTAB PO SCH (07:56)
[2022-09-19] MEDS: ATORVASTATIN 40 MG TAB PO SCH (07:56)
[2022-09-19] MEDS: carvediloL 12.5 MG TAB PO SCH (07:56)
[2022-09-19] MEDS ORDERED: FLUTICASONE PROPIONATE NA SPR 16 GM BTL SCH (09:45)
[2022-09-19] MEDS ORDERED: traMADol HCL 50 MG TABLET PO STA (09:54)
--- NOTE | 2022-09-20 17:41 | Discharge Summary ---
Date of Service September 20, 2022 Admission HPI Per Admitting Provider Pt is a 76 y/o M with hx of HTN (non compliant with medication), HLD, Vertigo, b/l carotid artery stenosis came into the ER with 1 week of dizziness and elevated BP. Per pt he has been having dizziness (room spinning sensation) for 1 week, which is getting worse. Dizziness is worse in the morning and improves through out the day. Worse with movement. Denied any associated extremity weakness, palpitation, change in vision, BOLNAD, slur speech or recent viral infection or ear congestion. He does not take his HTN meds regularly. Denied any daily ETOH use. Principal Diagnosis HTN urgency Dizziness Known vertebral and basilar artery stenosis Discharge Exam Appears well Sitting in bed, pleasant and comfortable Breathing comfortably on room air, no wheezing/rhonchi/rales Heart sound is regular rate and rhythm No lower extremity edema Neuro- Awake, alert, spontaneously moving exam Discharge Data Allergies Allergy/AdvReac Type Severity Reaction Status Date / Time No Known Allergies Allergy Unverified 11/17/21 00:02 Consultations 09/17/22 18:39 ED Decision to Admit Stat 09/17/22 20:31 Consult Neurology Routine Ordered Studies 09/17/22 16:26 CT angio head w con Stat CT angio neck with con Stat CT head/brain wo con Stat 09/17/22 20:31 MR brain wo/w con Routine Hospital Course (1) Dizziness: (2) Hypertensive urgency: (3) Vertebral artery stenosis: (4) Vertigo: Plan Mr Kory Palumbo is a 76 year old man with known vertebral basilar artery stenosis, hypertension, HLD, and sinusitis presents to ER on 09/17/2022 with several days of worsening headache and dizziness. Upon arrival, his BP was noted to be very elevated at 211/90. After further investigation, it was discovered he was forgetting to take some of his blood pressure medicines. Here, he had a CTA head/neck, CT head, and MRI brain. CTA head/neck shows high grade stenosis in his right vertebral and basilar arteries--imaging was reviewed by Neurology and felt to be unchanged from prior. It is noted that he was previously evaluated by neurosurgery and felt that he was not a surgical candidate. His MRI brain was negative for acute stroke. He was restarted on his home antihypertensives and his BP normalized at time of discharge. He reports sinus headache and tension headache which was not relieved with acetaminophen. He received fioricet and tramadol while here. He was instructed to avoid NSAIDs and ibuprofen was discontinued. He was also instructed to follow up with ENT for evaluation of his chronic sinusitis. He was evaluated by PT and recommended to have outpatient PT. Prior to discharge, his daughter, Dr Soto was called and updated on discharge plan. Total Time Total Time Spent Total Time Spent (In Minutes): 35 Discharge Plan Discharge Items Patient Disposition: Home - Self-Care Reason For Visit: HTN URGENCY AND DIZZINESS Discharge Diagnosis: HTN urgency Dizziness Known vertebral and basilar artery stenosis Activity: Resume your previous activity Exercise/Sports: Rest today Driving/Machine Use: Resume 1 day after discharge Non-emergency contact: Primary Care Provider Call non-emergency contact if: you have any medication questions Follow-up/Referrals: Len Banda MD [Primary Care Provider] - (Date & Time 09/24/2022 11:00 AM Provider Len Banda III, MD Department [facility] ) Diet: Heart Healthy Addtl Attending Provider Instructions: You were admitted for light headedness/dizziness. Your blood pressure upon arrival here was very elevated at 204/99. You were restarted on your home blood pressure medications and your blood pressure has improved. Please follow up with your primary care doctor in 2 weeks for management of your blood pressure. In addition, you should speak with your doctor about doing further workup to investigate why your blood pressure is so elevated. You should also speak with your doctor about stream lining your medications to make it easier for you to remember to take your medications. You were seen by physical therapy here and should continue outpatient physical therapy You report having chronic sinus congestion, you should see an Ear Nose and Throat (ENT) doctor for this You experienced sinus headache and tension headache for past several days not relieved with tylenol. You should avoid ibuprofen (motrin, advil, naproxen) because of your blood pressure. You were given a prescription for Fioricet (first option) and if that doesn't work then for tramadol (5 pills total) to help manage your headache. Do NOT drive, swim, operate heavy machinery while taking tramadol since it can cause drowsiness. Pending Studies at Discharge: No Stand-Alone Forms: My [facility] [employer], Smoking Cessation Medications and DC Order Prescriptions: New mkxltnkxpm-rvdhqndgzfngh-blvt 50-325-40 mg Tablet 1 tab PO Q4H PRN (Reason: headache) 5 Days Qty: 15 0RF tramadol 50 mg tablet 25 mg PO Q8H Qty: 5 0RF Continued atorvastatin 40 mg Tablet 40 mg PO QAM candesartan 32 mg Tablet 32 mg PO QAM aspirin 81 mg tablet,delayed release (DR/EC) 81 mg PO DAILY Qty: 30 0RF carvedilol 12.5 mg tablet 12.5 mg PO AMHS fluticasone propionate 50 mcg/actuation spray,suspension 2 spray INTRANASAL QAM amlodipine 10 mg tablet 10 mg PO DAILY meclizine 25 mg tablet 25 mg PO TID PRN (Reason: Dizziness) hydrochlorothiazide 25 mg tablet 25 mg PO DAILY Discontinued ibuprofen [Advil] 200 mg Tablet 200 mg PO Q4 PRN (Reason: Pain) Discharge Orders: Discharge Order (Routine); Ordered 09/19/22 Ordered By: Lola Mcgregor Admission Data Admit Date/Time: 09/17/22 19:13 Attending Provider: Lola Mcgregor Admit Provider: Blossom Lugo Primary Care Provider: Len Banda Other Providers: Blossom Lugo Other Interventions: Discharge Summary Assessment (RN) Last Done: 09/19/22 10:20
== END 2022-09-19 12:12 | disposition home or self-care (01) | DRG 305 ==
LOC: ED 15:51 → 2E 19:13 → INTOOBSV 19:13 → SUATTDRO 19:13 → 2E 20:23

== ENCOUNTER 2023-04-12 22:10 | Observation (INO) ==
--- OUTSIDE RECORDS SUMMARY | 2023-04-12 22:16 | External Medical Summary | Summary of Care ---
Author Name Unknown Organization [facility] Address [address] [place] [address] Phone [phone] Care Team Providers Care Sewage Treatment Plant Operator Name Role Phone Veronika GAVIN MD, Len Patino Primary Care Provider [phone] Reason for Visit * Reason Onset Date Comments Dizziness Medication Administration 01/15/2023 Flu an d/or Pneumo Inj Encounter Details Date Type Department Care Team (Late st Contact Info) Description 01/15/2023 3:20 PM EDT Office Visit Family Practice [facility] [address] [place] [address] Len Banda III, MD [address] [place] [address] Need for prophylactic vaccination and inoculation against influenza*; HTN, goal below 140/90; Carotid stenosis, left; Hyperlipidemia with target low density lipoprotein (LDL) cholesterol less than 100 mg/dL; Seasonal allergic rhinitis due to pollen; Benign paroxysmal vertigo of right ear Allergies Active Allergy Reactions Criticality Noted Date Comments Pollen Other (Please comment) 09/17/2022 Nasal congestion and drainage documented as of this encounter (statuses as of 01/28/2023) Medications Medication Sig Dispensed Refills Start Date End Date Status betamethasone dipropionate (DIPROSONE) 0.05 % creamIndications: Other atopic dermatitis and related conditions Apply topically to affected area 2 times a day. To affected area. 45 g 3 11/25/2016 Active amLODIPine Besylate 10 MG Oral Tablet (Norvasc) TAKE 1 TABLET BY MOUTH EVERY DAY 90 Tablet 2 07/10/2021 Active Fluticasone Propionate 50 MCG/ACT Nasal Suspension (Flonase)Indicati ons:Seasonal allergic rhinitis due to pollen Administer into each nostril 2 Sprays in the morning. 16 g 2 01/10/2022 Active Ipratropium [place] 0.03 % Nasal Solution (Atrovent) Administer 2 Sprays into each nostril 2 times a day as needed for Rhinitis. 90 mL 3 08/12/2022 Active Additional Information Patient not taking.Reported on 11/20/2022 Butalbital-Aspiri n-Caffeine 50-325-40 MG Oral Capsule Take 1 Capsule by mouth every 4 hours as needed for Pain, Moderate. 30 Capsule 0 09/24/2022 Active traMADol HCl 50 MG Oral Tablet (Ultram) Take 1 Tablet by mouth every 8 hours as needed for Pain, Moderate. 30 Tablet 0 09/24/2022 Active Atorvastatin Calcium 40 MG Oral Tablet (Lipitor)Indicati ons:HTN, goal below 140/90,Carotid stenosis, left,Hyperlipidem ia with target low density lipoprotein (LDL) cholesterol less than 100 mg/dL TAKE 1 TABLET BY MOUTH EVERY DAY IN THE MORNING 90 Tablet 3 10/07/2022 Active Meclizine HCl 25 MG Oral Tablet (Antivert)Indicat ions:Benign paroxysmal vertigo of right ear Take 1 Tablet by mouth 3 times a day as needed for Dizziness. 30 Tablet 1 01/15/2023 Active Candesartan Cilexetil 32 MG Oral Tablet (Atacand)Indicati ons:HTN, goal below 140/90 Take 1 Tablet by mouth in the morning. 90 Tablet 5 01/15/2023 Active hydroCHLOROthiazi de 25 MG Oral Tablet (Hydrodiuril)Shara cations:HTN, goal below 140/90 Take 1 Tablet by mouth in the morning. 90 Tablet 3 01/15/2023 Active Meclizine HCl 25 MG Oral Tablet (Antivert)Indicat ions:Benign paroxysmal vertigo of right ear Take by mouth 1 Tablet as needed in the morning AND 1 Tablet as needed at noon AND 1 Tablet as needed in the evening for Dizziness. 30 Tablet 1 12/28/2021 3 Discontinued (Refill) hydroCHLOROthiazi de 25 MG Oral Tablet (Hydrodiuril)Shara cations:HTN, goal below 140/90 Take by mouth 1 Tablet in the morning. 90 Tablet 2 01/21/2022 3 Discontinued (Refill) Carvedilol 12.5 MG Oral Tablet (Coreg)Indication s:HTN, goal below 140/90 Take 0.5 Tablets by mouth in the morning and 0.5 Tablets before bedtime. With food. 60 Tablet 11 09/24/2022 3 Discontinued (Medication List Clean Up) Ezetimibe 10 MG Oral Tablet (Zetia) Take 1 Tablet by mouth in the morning. 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 Increased risk for Inherited Arrhythmias. Carotid stenosis, left 06/11/2013 Hyperlipidemia with target LDL less than 100 Overview: ICD-10 update of inactive term HTN, goal below 140/90 06/11/2013 documented as of this encounter (statuses as of 01/28/2023) Resolved Problems Problem Noted Date Diagnosed Date Resolved Date TIA (transient ischemic attack) 06/24/2013 11/25/2016 Other atopic dermatitis 01/15/201006/2018 Overview: ICD-10 update of inactive term Sleep apnea 09/02/2008 11/25/2016 Family history of ischemic heart disease 12/11/2007 11/25/2016 Family history of GI malignancy 12/11/2007 11/25/2016 documented as of this encounter (statuses as of 01/28/2023) Immunizations Name Administration Dates Next Due Pneumococcal Conjugate Vacc, 13 Valent (Prevnar) 01/31/2015 Pneumococcal Polysaccharide PPV23 (Pneumovax) 11/25/2016 SEASONAL INFLUENZA, PF, 6 M & Above, IM , (FLULAVAL or FLUZONE) 12/02/2018,04/21/2017 Seasonal Influenza, Quadriva lent Hd (Fluzone Hd) 01/15/2023,12/28/2021,03/22/2021 Seasonal Influenza, Quadriva lent, No Preserve, IM 01/31/2015 TD - Tetanus/Diptheria (ADULT) 02/27/2013 TDAP (age 11 and older)(Adacel) 01/06/2008 Varicella Zoster Vaccine (Adult) 03/12/2013 Zoster Vaccine Recombinant (Shingrix) 05/18/2019 ,01/27/2019 documented as of this encounter Social History Tobacco Use Types Packs/Day Years Used Date Smoking Tobacco: Never Smokeless Tobacco: Never Comments:no passive smoke Alcohol Use Standard Drinks/Week Comments Yes 2.5 (1 standard drink = 0.6 oz p ure alcohol) 5 drinks/week PHQ-2 Answer Date Recorded PHQ Adult Total Score 0 11/08/2021 Hunger Vital Sign Answer Date Recorded Within the past 12 months, y ou worried that your food would run out before you got the money to buy more. Never true 09/25/19 23 Within the past 12 months, t he food you bought just didn't last and you didn't have money to get more. Never true 09/24/2022 Sex and Gender Information Value Date Recorded Sex Assigned at Male 07/24/2018 1:30 PM EDT Gender Identity Not on file Sexual Orientation Straight 07/24/2018 1: 30 PM EDT Job Start Date Occupation Industry Not on file Not on file Not on file documented as of this encounter Last Filed Vital Signs Vital Sign Reading Time Taken Comments Blood Pressure 130/70 01/15/2023 3:29 PM EDT Pulse 69 01/15/2023 3:29 PM EDT Temperature 36.2 C (97.2 F) 01/15/2023 3:29 PM ED T Respiratory Rate 16 01/15/2023 3:29 PM EDT Oxygen Saturation - - Inhaled Oxygen Concentration - - Weight 82.1 kg (181 lb) 01/15/2023 3:29 PM EDT Height - - Body Mass Index 28.35 11/20/2022 11:01 AM EDT documented in this encounter Progress Notes * Rocío Barton, RN - 01/15/2023 3:29 PM EDT Pt has dizziness. Saw ENT. They advised surgery. documented in this encounter Plan of Treatment Upcoming Encounters Date Type Department Care Team (Late st Contact Info) Description 07/22/2023 1:00 PM EDT [facility] [place] [address] [place] [address] Len Banda III, MD [address] [place] [address] Scheduled Procedures Name Priority Associated Diagnoses Date/Ti me COLONOSCOPY FLEXIBLE PROXIMA L DIAGNOSTIC Recall History of colon polyps Family history of colon cancer Health Maintenance Due Date Last Done Comments Depression Screening 11/08/2022 11/08/2021 COVID-19 Vaccine ( season) 2022 01/09/2022 DTaP,Tdap,and Td Vaccines (3 - Td or Tdap) 02/27/2023 02/27/2013, 01/06/2008 COLONOSCOPY-EVERY 5 YRS AGES 18-100 08/27/2023 08/26/2018, 08/26/2018, 02/05/2013, Additional history exists GFR 09/19/2023 09/18/2022, 10/29, 01/27/2019, Additional history exists Albumin/Creatinine Ratio 12/28/2024 12/28/2021 Pneumococcal Vaccine: 65+ Years Completed 11/25/2016, 01/31/2015 Zoster Vaccines Completed 05/18/2019, 12/31, 03/12/2013 Influenza Vaccine (FLU shot) Completed , 12/28/2021, 03/22/2021, Additional history exists GARDASIL-HPV IMMUNIZATION SERIES Aged Out No longer eligible based on patient's age to complete this topic Hepatitis B Aged Out No longer eligi ble based on patient's age to complete this topic MENINGOCOCCAL (MENACTRA/MENVEO) Aged Out No longer eligible based on patient's age to complete this topic documented as of this encounter Medical Devices Not on filedocumented as of this encounter Visit Diagnoses Diagnosis Need for prophylactic vaccination and inoculation against influenza- Primary HTN, goal below 140/90 Unspecified essential hypertension Carotid stenosis, left Occlusion and stenosis of carotid artery without mention of cerebral infarction Hyperlipidemia with target low density lipoprotein (LDL) cholesterol less than 100 mg/dL Seasonal allergic rhinitis due to pollen Benign paroxysmal vertigo of right ear Benign paroxysmal positional vertigo documented in this encounter Advance Directives Latest Code Status on File Code Status Date Activated Date Inactivated Comments Full Code 09/02/2008 3:34 PM 09/03/2008 3:24 PM This or boni reflects the patients wishes and were consensually agreed upon. Care Teams Sewage Treatment Plant Operator Relationship Specialty Start Date End Date Len Banda III, MD [address] [facility] [place] [address] PCP - General Family Medicine 02/04/18 documented as of this encounter
--- OUTSIDE RECORDS SUMMARY | 2023-04-12 22:16 | External Medical Summary | Summary of Care ---
Author Name Unknown Organization [facility] Address [address] [facility] [place] [address] Phone [phone] Care Team Providers Care Support Technician Name Role Phone Veronika GAVIN MD, Laila Patino Primary Care Provider [phone] Reason for Visit * Reason Onset Date Comments Medication Refill 10/17/2022 Encounter Details Date Type Department Care Team Description 10/17/[address] [facility] [place] [address] [place] [address] Laila Cordero III, MD [address] [facility] [place] [address] Allergies Active Allergy Reactions Severity Noted Date Comments Pollen Other (Please comment) 09/17/2022 Nasal congestion and drainage documented as of this encounter (statuses as of 10/18/2022) Medications Medication Sig Dispensed Refills Start Date End Date Status betamethasone dipropionate (DIPROSONE) 0.05 % creamIndications:O ther atopic dermatitis and related conditions Apply topically to affected area 2 times a day. To affected area. 45 g 3 11/25/2016 Active amLODIPine Besylate 10 MG Oral Tablet (Norvasc) TAKE 1 TABLET BY MOUTH EVERY DAY 90 Tablet 2 07/10/2021 Active Meclizine HCl 25 MG Oral Tablet (Antivert)Indicati ons:Benign paroxysmal vertigo of right ear Take by mouth 1 Tablet as needed in the morning AND 1 Tablet as needed at noon AND 1 Tablet as needed in the evening for Dizziness. 30 Tablet 1 12/28/2021 Active Fluticasone Propionate 50 MCG/ACT Nasal Suspension (Flonase)Indicatio ns:Seasonal allergic rhinitis due to pollen Administer into each nostril 2 Sprays in the morning. 16 g 2 01/10/2022 Active hydroCHLOROthiazid e 25 MG Oral Tablet (Hydrodiuril)Indic ations:HTN, goal below 140/90 Take by mouth 1 Tablet in the morning. 90 Tablet 2 01/21/2022 Active Additional Information Patient not taking.Reported on 09/17/2022 Ipratropium [place] 0.03 % Nasal Solution (Atrovent) Administer 2 Sprays into each nostril 2 times a day as needed for Rhinitis. 90 mL 3 08/12/2022 Active Candesartan Cilexetil 32 MG Oral Tablet (Atacand) TAKE 1 TABLET BY MOUTH EVERY DAY IN THE MORNING 90 Tablet 0 08/17/2022 Active Butalbital-Aspirin -Caffeine 50-325-40 MG Oral Capsule Take 1 Capsule by mouth every 4 hours as needed for Pain, Moderate. 30 Capsule 0 09/24/2022 Active traMADol HCl 50 MG Oral Tablet (Ultram) Take 1 Tablet by mouth every 8 hours as needed for Pain, Moderate. 30 Tablet 0 09/24/2022 Active Carvedilol 12.5 MG Oral Tablet (Coreg)Indications :HTN, goal below 140/90 Take 0.5 Tablets by mouth in the morning and 0.5 Tablets before bedtime. With food. 60 Tablet 11 09/24/2022 Active Atorvastatin Calcium 40 MG Oral Tablet (Lipitor)Indicatio ns:HTN, goal below 140/90,Carotid stenosis, left,Hyperlipidemi a with target low density lipoprotein (LDL) cholesterol less than 100 mg/dL TAKE 1 TABLET BY MOUTH EVERY DAY IN THE MORNING 90 Tablet 3 10/07/2022 Active Ezetimibe 10 MG Oral Tablet (Zetia) Take 1 Tablet by mouth in the morning. 90 Tablet 0 10/18/2022 3 Active Ezetimibe 10 MG Oral Tablet (Zetia) Take 1 Tablet by mouth in the morning. 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 Increased risk for Inherited Arrhythmias. Carotid stenosis, left 06/11/2013 Hyperlipidemia with target LDL less than 100 06/11/2013 Overview: ICD-10 update of inactive term HTN, goal below 140/90 06/11/2013 documented as of this encounter (statuses as of 10/18/2022) Resolved Problems Problem Noted Date Resolved Date TIA (transient ischemic attack) 06/24/2013 11/25/2016 Other atopic dermatitis 01/15/2010 12/03/19 19 Overview: ICD-10 update of inactive term Sleep apnea 09/02/2008 11/25/2016 Family history of ischemic heart disease 008 11/25/2016 Family history of GI malignancy 12/11/2007 11/25/2016 documented as of this encounter (statuses as of 10/18/2022) Immunizations Name Administration Dates Next Due Pneumococcal Conjugate Vacc, 13 Valent (Prevnar) 01/31/2015 Pneumococcal Polysaccharide PPV23 (Pneumovax) Seasonal Influenza, Quadrivalent Hd (Fluzone Hd) 12/28/2021,03/22/2021 Seasonal Influenza, Quadriva lent, No Preserve, 6 Mons & Above, IM 12/02/2018,04/21/2017 Seasonal Influenza, Quadrivalent, No Preserve, I M 01/31/2015 TD - Tetanus/Diptheria (ADULT) 02/27/2013 TDAP [...] 0.6 oz p ure alcohol) 5 drinks/week Food Insecurity Answer Date Recorded Within the past 12 months, y ou worried that your food would run out before you got money to buy more. Never true 09/24/2022 Within the past 12 months, t he food you bought just didn't last and you didn't have money to get more. Never true 09/24/2022 Sex Assigned at Date Recorded Male 07/24/2018 1:30 PM E DT Job Start Date Occupation Industry Not on file Not on file Not on file documented as of this encounter Miscellaneous Notes * Telephone Encounter - Laila Cordero III, MD - 10/18/2022 11:02 AM EDTSigned Prescriptions: Disp Refills Ezetimibe 10 MG Oral Tablet (Zetia) 90 Tab*0 Sig: Take 1 Tablet by mouth in the morning.Authorizing Provider: LAILA CORDERO III * Telephone Encounter - CELINA Landa - 10/17/2022 3:07 PM EDTPending Prescriptions: Disp Refills Ezetimibe 10 MG Oral Tablet (Zetia) 90 Tab*0 Sig: Take 1 Tablet by mouth in the morning. * Telephone Encounter - CELINA Landa - 10/17/2022 3:07 PM EDT Did you pend patient's preferred pharmacy and medication before forwarding?yes Pharmacy: [id number] [place] [address] Pending Prescriptions: Disp Refills Ezetimibe 10 MG Oral Tablet (Zetia) 90 Tab*0 Sig: Take 1 Tablet by mouth in the morning. Last Visit: 09/24/2022 (in office), Visit date not found (telemedicine) Next Visit: 01/15/2023 If no future appointments scheduled, and last appointment is greater than a year ago, please schedule patient for a follow-up appointment Last date the medication was ordered: 09/24/2022 Is this request for a controlled substance?No Urine Drug Screen:No results found for this or any previous visit. Patient Phone Numbers Labs: Lab Results Component Value Date/Time CREAT 0.78 09/18/2022 12:00 AM CREAT 1.0 01/27/2019 10:26 AM POTASSIUM 3.8 09/18/2022 12:00 AM POTASSIUM 4.6 01/27/2019 10:26 AM TSH 3.68 12/23/2007 08:17 AM LDLCALC 68 09/18/2022 12:00 AM LDLCALC 173 (H) 05/28/2017 09:40 AM LDLDIRECT 86 01/27/2019 10:26 AM ALT 17 05/28/2017 09:40 AM * Telephone Encounter - Chhaya Walker - 10/17/2022 1:19 PM EDT 90 day Did you pend patient's preferred pharmacy and medication before forwarding?yes Pharmacy: [id number] [place] [address] Pending Prescriptions: Disp Refills Ezetimibe 10 MG Oral Tablet (Zetia) 30 Tab*1 Sig: Take 1 Tablet by mouth in the morning. Last Visit: 09/24/2022 (in office), Visit date not found (telemedicine) Next Visit: 01/15/2023 If no future appointments scheduled, and last appointment is greater than a year ago, please schedule patient for a follow-up appointment Last date the medication was ordered: 09/24/22 Is this request for a controlled substance?No Urine Drug Screen:No results found for this or any previous visit. Patient Phone Numbers Labs: Lab Results Component Value Date/Time CREAT 0.78 09/18/2022 12:00 AM CREAT 1.0 01/27/2019 10:26 AM POTASSIUM 3.8 09/18/2022 12:00 AM POTASSIUM 4.6 01/27/2019 10:26 AM TSH 3.68 12/23/2007 08:17 AM LDLCALC 68 09/18/2022 12:00 AM LDLCALC 173 (H) 05/28/2017 09:40 AM LDLDIRECT 86 01/27/2019 10:26 AM ALT 17 05/28/2017 09:40 AM documented in this encounter Plan of Treatment Upcoming Encounters Date Type Specialty Care Team Description 11/20/2022 Office Visit Otolaryngology Nicholas Gomez MD [address] [place] [address] 01/15/2023 Office Visit Family Medicine Laila Cordero III, MD [address] [place] [address] Scheduled Procedures Name Priority Associated Diagnoses Date/Ti me COLONOSCOPY FLEXIBLE PROXIMA L DIAGNOSTIC Recall History of colon polyps Family history of colon cancer Health Maintenance Due Date Last Done Comments Depression Screening, Annual for Pts 12 and Over 11/08/2022 11/08/2021 Influenza Vaccine (FLU shot) (#1) 2022 12/28/2021, 03/22/2021, 12/02/2018, Additional history exists DTaP,Tdap,and Td Vaccines (3 - Td or Tdap) 02/27/2023 02/27/2013, 01/06/2008 COLONOSCOPY-EVERY 5 YRS AGES 18-100 08/27/2023 08/26/2018, 08/26/2018, 02/05/2013, Additional history exists GFR 09/19/2023 09/18/2022, 10/29, 01/27/2019, Additional history exists Albumin/Creatinine Ratio 12/28/2024 12/28/2021 Pneumococcal Vaccine: 65+ Years Completed 11/25/2016, 01/31/2015 Zoster Vaccines Completed 05/18/2019, 12/31, 03/12/2013 COVID-19 Vaccine Completed 01/09/2022 GARDASIL-HPV IMMUNIZATION SERIES Aged Out No longer eligible based on patient's age to complete this topic Hepatitis B Aged Out No longer eligi ble based on patient's age to complete this topic MENINGOCOCCAL (MENACTRA/MENVEO) Aged Out No longer eligible based on patient's age to complete this topic documented as of this encounter Medical Devices Not on filedocumented as of this encounter Advance Directives Latest Code Status on File Code Status Date Activated Date Inactivated Comments Full Code 09/02/2008 3:34 PM 09/03/2008 3:24 PM This or boni reflects the patients wishes and were consensually agreed upon. Care Teams Support Technician Relationship Specialty Start Date End Date Laila Cordero III, MD [address] [place] [address] PCP - General Family Medicine 02/04/18 documented as of this encounter
--- OUTSIDE RECORDS SUMMARY | 2023-04-12 22:16 | External Medical Summary | Summary of Care ---
Author Name Unknown Organization [facility] Address [address] [facility] [place] [address] Phone [phone] Care Team Providers Care Delivery Motorcycle Driver Name Role Phone Veronika GAVIN MD, Laila Patino Primary Care Provider [phone] Reason for Visit * Reason Comments eRx-Medication Refill Encounter Details Date Type Department Care Team (Late st Contact Info) Description 03/04/2023 Refill Family Practice [facility] [place] [address] [facility] [place] [address] Laila Cordero III, MD [address] [facility] [place] [address] Allergies Active Allergy Reactions Criticality Noted Date Comments Pollen Other (Please comment) 09/17/2022 Nasal congestion and drainage documented as of this encounter (statuses as of 03/04/2023) Medications Medication Sig Dispensed Refills Start Date [...] morning. 16 g 2 01/10/2022 Active Ipratropium [place] 0.03 % Nasal Solution (Atrovent) Administer 2 Sprays into each nostril 2 times a day as needed for Rhinitis. 90 mL 3 08/12/2022 Active Butalbital-Aspiri n-Caffeine 50-325-40 MG Oral Capsule Take [...] the morning. 90 Tablet 3 01/15/2023 Active Amoxicillin-Pot Clavulanate 875-125 MG Oral Tablet (Augmentin) Take 1 Tablet by mouth in the morning and 1 Tablet before bedtime. Do all this for 7 days. 14 Tablet 0 02/26/2023 3 Active oxyCODONE HCl 5 MG Oral Tablet (Oxy IR) Take 1 Tablet by mouth every 4 hours as needed for severe pain. 10 Tablet 0 02/26/2023 Active Ezetimibe 10 MG Oral Tablet (Zetia) TAKE 1 TABLET BY MOUTH EVERY DAY IN THE MORNING 90 Tablet 2 03/04/2023 Active Ezetimibe 10 MG Oral Tablet (Zetia) Take 1 Tablet by mouth in the morning. 90 Tablet 0 10/18/2022 3 Discontinued documented as of this encounter (statuses as of 03/04/2023) Active Problems Problem Noted Date Diagnosed Date Monoallelic mutation of SCN5A gene 01/26/2019 Overview: pathogenic SCN5A gene variant (c.3988G>A, p.[id number]) detected via [employer]. Increased risk for Inherited Arrhythmias. Carotid stenosis, left 06/11/2013 Hyperlipidemia with target LDL less than 100 Overview: ICD-10 update of inactive term HTN, goal below 140/90 06/11/2013 documented as of this encounter (statuses as of 03/04/2023) Resolved Problems Problem Noted Date Diagnosed Date Resolved Date TIA (transient ischemic attack) 06/24/2013 11/25/2016 Other atopic dermatitis 01/15/201006/2018 Overview: ICD-10 update of inactive term Sleep apnea 09/02/2008 11/25/2016 Family history of ischemic heart disease 12/11/2007 11/25/2016 Family history of GI malignancy 12/11/2007 11/25/2016 documented as of this encounter (statuses as of 03/04/2023) Immunizations Name Administration Dates Next Due Pneumococcal [...] encounter Miscellaneous Notes * Telephone Encounter - Kyle Trevino RPh - 03/04/2023 3:35 PM EST Signed Prescriptions: Disp Refills Ezetimibe 10 MG Oral Tablet (Zetia) 90 Tab*2 Sig: TAKE 1 TABLET BY MOUTH EVERY DAY IN THE MORNINGAuthorizing Provider: LAILA CORDERO III User: KYLE TREVINO documented in this encounter Plan of Treatment Upcoming Encounters Date Type Department Care Team (Late st Contact Info) Description 07/22/2023 1:00 PM EDT Office Visit Family Practice [facility] [address] [place], [place] [address] Laila Cordero III, MD [address] [place] [address] Scheduled Procedures Name Priority Associated Diagnoses Date/Ti [...] and were consensually agreed upon. Care Teams Delivery Motorcycle Driver Relationship Specialty Start Date End Date Laila Cordero III, MD [address] [place] [address] PCP - General Family Medicine 02/04/18 documented as of this encounter
--- OUTSIDE RECORDS SUMMARY | 2023-04-12 22:16 | External Medical Summary | Summary of Care ---
Author Name Unknown Organization [facility] Address [address] [place] [address] Phone [phone] Care Team Providers Care Naphthol Soaping Machine Operator Name Role Phone Veronika GAVIN MD, Len Patino Primary Care Provider [phone] Reason for Referral * Precert (Within 10 days (routine)) - Authorized Specialty Diagnoses / Procedures Referred By Shaac t Referred To Contact Radiology Diagnoses Nasal polyps Procedures CT SINUS IMAGE GUIDED WO CONTRAST Nicholas Gomez MD [address] [place] [address] Referral ID Status Reason Start Date Expiration Date V isits Requested Visits Authorized [id number] Authorized Precert 11/20/2022 12/28/2022 999 [id number] Reason for Visit * Precert (Within 10 days (routine)) - Authorized Specialty Diagnoses / Procedures Referred By Contjennifer vazquez Referred To Contact Radiology Diagnoses Nasal polyps Procedures CT SINUS IMAGE GUIDED WO CONTRAST Nicholas Gomez MD [address] [place] [address] Referral ID Status Reason Start Date Expiration Date V isits Requested Visits Authorized [id number] Authorized Precert 11/20/2022 12/28/2022 [id number] Encounter Details Date Type Department Care Team Description 11/27/2022 Hospital Encounter Radiology, [address] [address] Arrived Allergies Active Allergy Reactions Severity Noted Date Comments Pollen Other (Please comment) 09/17/2022 Nasal congestion and drainage documented as of this encounter (statuses as of 11/28/2022) Medications Medication Sig Dispensed Refills Start Date End Date Status betamethasone dipropionate (DIPROSONE) 0.05 % creamIndications:Ot her atopic dermatitis and related conditions Apply topically to affected area 2 times a day. To affected area. 45 g 3 11/25/2016 Active amLODIPine Besylate 10 MG Oral Tablet (Norvasc) TAKE 1 TABLET BY MOUTH EVERY DAY 90 Tablet 2 07/10/2021 Active Meclizine HCl 25 MG Oral Tablet (Antivert)Indicatio ns:Benign paroxysmal vertigo of right ear Take by mouth 1 Tablet as needed in the morning AND 1 Tablet as needed at noon AND 1 Tablet as needed in the evening for Dizziness. 30 Tablet 1 12/28/2021 Active Fluticasone Propionate 50 MCG/ACT Nasal Suspension (Flonase)Indication s:Seasonal allergic rhinitis due to pollen Administer into each nostril 2 Sprays in the morning. 16 g 2 01/10/2022 Active hydroCHLOROthiazide 25 MG Oral Tablet (Hydrodiuril)Indica tions:HTN, goal below 140/90 Take by mouth 1 Tablet in the morning. 90 Tablet 2 01/21/2022 Active Ipratropium [place] 0.03 % Nasal Solution (Atrovent) Administer 2 Sprays into each nostril 2 times a day as needed for Rhinitis. 90 mL 3 08/12/2022 Active Additional Information Patient not taking.Reported on 11/20/2022 Candesartan Cilexetil 32 MG Oral Tablet (Atacand) TAKE 1 TABLET BY MOUTH EVERY DAY IN THE MORNING 90 Tablet 0 08/17/2022 Active Butalbital-Aspirin- Caffeine 50-325-40 MG Oral Capsule Take 1 Capsule by mouth every 4 hours as needed for Pain, Moderate. 30 Capsule 0 09/24/2022 Active traMADol HCl 50 MG Oral Tablet (Ultram) Take 1 Tablet by mouth every 8 hours as needed for Pain, Moderate. 30 Tablet 0 09/24/2022 Active Carvedilol 12.5 MG Oral Tablet (Coreg)Indications: HTN, goal below 140/90 Take 0.5 Tablets by mouth in the morning and 0.5 Tablets before bedtime. With food. 60 Tablet 11 09/24/2022 Active Additional Information Patient not taking.Reported on 11/20/2022 Atorvastatin Calcium 40 MG Oral Tablet (Lipitor)Indication s:HTN, goal below 140/90,Carotid stenosis, left,Hyperlipidemia with target low density lipoprotein (LDL) cholesterol less than 100 mg/dL TAKE 1 TABLET BY MOUTH EVERY DAY IN THE MORNING 90 Tablet 3 10/07/2022 Active Ezetimibe 10 MG Oral Tablet (Zetia) Take 1 Tablet by mouth in the morning. 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 Increased risk for Inherited Arrhythmias. Carotid stenosis, left 06/11/2013 Hyperlipidemia with target LDL less than 100 06/11/2013 Overview: ICD-10 update of inactive term HTN, goal below 140/90 06/11/2013 documented as of this encounter (statuses as of 11/28/2022) Resolved Problems Problem Noted Date Resolved Date TIA (transient ischemic attack) 06/24/2013 11/25/2016 Other atopic dermatitis 01/15/2010 12/03/19 19 Overview: ICD-10 update of inactive term Sleep apnea 09/02/2008 11/25/2016 Family history of ischemic heart disease 008 11/25/2016 Family history of GI malignancy 12/11/2007 11/25/2016 documented as of this encounter (statuses as of 11/28/2022) Immunizations Name Administration Dates Next Due Pneumococcal Conjugate Vacc, 13 Valent (Prevnar) 01/31/2015 Pneumococcal Polysaccharide PPV23 (Pneumovax) Seasonal Influenza, PF, 6 mo ns & Above, IM , (Flulaval) 12/02/2018,04/21/2017 Seasonal Influenza, Quadrivalent Hd (Fluzone Hd) 12/28/2021,03/22/2021 Seasonal Influenza, Quadrivalent, No Preserve, I M [...] on file documented as of this encounter Plan of Treatment Upcoming Encounters Date Type Specialty Care Team Description 01/15/2023 Office Visit Family Medicine [place] III, Len Patino MD [address] [place] [address] Scheduled Procedures Name Priority Associated Diagnoses Date/Ti me COLONOSCOPY FLEXIBLE PROXIMA L DIAGNOSTIC Recall History of colon polyps Family history of colon cancer Health Maintenance Due Date Last Done Comments Depression Screening, Annual for Pts 12 and Over 11/08/2022 11/08/2021 *NEPHROLOGY REFERRAL DUE TO RESISTANT HTN 11/22/2022 Influenza Vaccine (FLU shot) (#1) 2022 12/28/2021, [...] Not on filedocumented as of this encounter Procedures Procedure Name Priority Date/Time Associated Diagnosis Comments CT SINUS FUSION WO CONTRAST Routine 11/27/2022 2:34 PM EDT Nasal polyps documented in this encounter Results * CT SINUS IMAGE GUIDED WO CONTRAST (11/27/2022 2:34 PM EDT) Anatomical Region Laterality Modality Sinus, Head, Neck Computed Tomog stewart 11/27/2022 7:51 PM EDT Impressions 11/27/2022 7:49 PM EDT IMPRESSION Moderate pansinusitis. Narrative 11/27/2022 7:[address] SINUS IMAGE GUIDED WO CONTRAST11/27/2022 2:34 pm HISTORY nasal polyps TECHNIQUE Multiple contiguous axial images were obtained from the superior calvarium to the maxilla. From this data axial, coronal and sagittal images of the paranasal sinuses were obtained. COMPARISON None. FINDINGS No intranasal mass is identified. The cribriform plate and hard palate are intact. There is mild kdxr-ft-dqtix bowing of the bony nasal septum. There is a right- sided bony nasal spur with associated mild narrowing of the right nasal cavity. No destructive osseous lesion is identified. In the anterior sinonasal region the fronto-ethmoidal recesses are is a fight. There is minimal mucosal thickening in the left frontal sinus. The right frontal sinus is grossly clear. There is partial opacification of the bilateral anterior ethmoid air cells. The ostiomeatal units are opacified. There is moderate polypoid mucosal thickening within the bilateral maxillary sinuses. Unerupted left molar tooth projects into the left maxillary sinus. In the posterior sinonasal region the sphenoethmoidal recesses are opacified. The sphenoid sinuses and posterior ethmoid air cells are partially opacified. The sphenoid spine inserts upon the midline. The internal carotid and optic canals are intact and do not protrude into the sphenoid sinuses. No acute periodontal disease is appreciated. No gross malalignment of the temporomandibular joints is appreciated. No intraorbital mass or edema is appreciated. Within the limitations of technique, the visualized brain and soft tissues of the suprahyoid neck demonstrate no acute abnormality. The skull base foramina are unremarkable. The visualized portions of the middle ear cavities are well aerated. Procedure Note Canelo Rob MD - 11/27/[address] SINUS IMAGE GUIDED WO CONTRAST11/27/2022 2:34 pm HISTORY nasal polyps TECHNIQUE Multiple contiguous axial images were obtained from the superior calvariumto the maxilla. From this data axial, coronal and sagittal images of theparanasal sinuses were obtained. COMPARISON None. FINDINGS No intranasal mass is identified. The cribriform plate and hard palate are intact. There is mild cqze-zp-wkocj bowing of the bony nasal septum. There is aright- sided bony nasal spur with associated mild narrowing of the rightnasal cavity. No destructive osseous lesion is identified. In the anterior sinonasal region the fronto-ethmoidal recesses are is afight. There is minimal mucosal thickening in the left frontal sinus.The right frontal sinus is grossly clear. There is partial opacificationof the bilateral anterior ethmoid air cells. The ostiomeatal units are opacified. There is moderate polypoid mucosal thickening within the bilateralmaxillary sinuses. Unerupted left molar tooth projects into the left maxillary sinus. In the posterior sinonasal region the sphenoethmoidal recesses areopacified. The sphenoid sinuses and posterior ethmoid air cells arepartially opacified. The sphenoid spine inserts upon the midline. The internal carotid and optic canals are intact and do not protrude intothe sphenoid sinuses. No acute periodontal disease is appreciated. No gross malalignment of the temporomandibular joints is appreciated. No intraorbital mass or edema is appreciated. Within the limitations of technique, the visualized brain and soft tissuesof the suprahyoid neck demonstrate no acute abnormality. The skull base foramina are unremarkable. The visualized portions of the middle ear cavities are well aerated. IMPRESSION IMPRESSION Moderate pansinusitis. Nicholas Gomez MD RAD CT documented in this encounter Visit Diagnoses Diagnosis Nasal polyps Unspecified nasal polyp documented in this encounter Advance Directives Latest Code Status on File Code Status Date Activated Date Inactivated Comments Full Code 09/02/2008 3:34 PM 09/03/2008 3:24 PM This or boni reflects the patients wishes and were consensually agreed upon. Care Teams Naphthol Soaping Machine Operator Relationship Specialty Start Date End Date Len Banda III, MD [address] [place] [address] PCP - General Family Medicine 02/04/18 documented as of this encounter
--- OUTSIDE RECORDS SUMMARY | 2023-04-12 22:16 | External Medical Summary ---
Author Name Unknown Address Unknown Organization : Laboratory Report Ordering Provider Test Date Status TIA SEGUNDO 02/26/2023 09:47:49 Final Observation Date Value Abnormality Reference (Units ) Status Glucose Point of Care 02/26/2023 09:47:49 104 70-120 (mg/dL) Final Performing Location
--- OUTSIDE RECORDS SUMMARY | 2023-04-12 22:16 | External Medical Summary | Summary of Care ---
Author Name Unknown Organization [facility] Address [address] [facility] [place] [address] Phone [phone] Care Team Providers Care Gunite Mixer Name Role Phone Veronika GAVIN MD, Len Patino Primary Care Provider [phone] Reason for Visit * Reason Comments NEW PATIENT Pt has raised, brown lesion on R cheek that appeared this past Summer. Does not itch, bleed, or grown in size. Last saw Dr. Hernandez in 2019. No h/o skin cancer. Encounter Details Date Type Department Care Team (Late st Contact Info) Description 02/28/2023 11:40 AM EST Office Visit Dermatology, Shirley Marie [address] [place] [address] Elicia Graves PA-C [address] [place] [address] Inflamed seborrheic keratosis* Allergies Active Allergy Reactions Criticality Noted Date Comments Pollen Other (Please comment) 09/17/2022 Nasal congestion and drainage documented as of this encounter (statuses as of 03/05/2023) Medications Medication Sig Dispensed Refills Start Date [...] morning. 16 g 2 01/10/2022 Active Ipratropium [place] 0.03 % Nasal Solution (Atrovent) Administer 2 [...] for 7 days. 14 Tablet 0 02/26/2023 Active oxyCODONE HCl 5 MG Oral Tablet (Oxy IR) Take 1 Tablet by mouth every 4 hours as needed for severe pain. 10 Tablet 0 02/26/2023 Active Ezetimibe 10 MG Oral Tablet (Zetia) Take 1 Tablet by mouth in the morning. 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 Increased risk for Inherited Arrhythmias. Carotid stenosis, left 06/11/2013 Hyperlipidemia with target LDL less than 100 Overview: ICD-10 update of inactive term HTN, goal below 140/90 06/11/2013 documented as of this encounter (statuses as of 03/05/2023) Resolved Problems Problem Noted Date Diagnosed Date Resolved Date TIA (transient ischemic attack) 06/24/2013 11/25/2016 Other atopic dermatitis 01/15/201006/2018 Overview: ICD-10 update of inactive term Sleep apnea 09/02/2008 11/25/2016 Family history of ischemic heart disease 12/11/2007 11/25/2016 Family history of GI malignancy 12/11/2007 11/25/2016 documented as of this encounter (statuses as of 03/05/2023) Immunizations Name Administration Dates Next Due Pneumococcal [...] on file documented as of this encounter Progress Notes * Elicia Graves PA-C - 02/28/2023 11:40 AM EST SUBJECTIVE: HPI: Kory Palumbo is a 77 year old male seen as a new patient for evaluation and treatment of a facial lesion. The patient has a concerning lesion on the right cheek x several months. No change in size or color. Lesion does get irritated when shaving, catches and gets sore. No attempted therapies. Patient alone today. Defers full skin exam. DERMATOLOGIC HISTORY: H/o skin cancer: None H/o skin disorders: AKs s/p cryo Sunscreen use: wears a hat H/o tanning bed use: None FAMILY HISTORY: Skin cancer: None Skin disorders: None SOCIAL HISTORY: Retired - baseball coach REVIEW OF SYSTEMS: SKIN: No other new or changing moles. HEME/LYMPH: No new or enlarging lumps or bumps. CONSTITUTIONAL: No nausea, vomiting, fevers, chills, diarrhea. No recent unintended weight loss, night sweats, appetite or malaise. Past Medical History: Diagnosis Date Carotid stenosis, left 06/11/2013 Family history of GI malignancy 12/11/2007 Family history of ischemic heart disease 12/11/2007 INFORMATION hepatitis age 21 from mono Other atopic dermatitis and related conditions Renal calculi 2001 Sleep apnea 09/02/2008 TIA (transient ischemic attack) 06/24/2013 Unspecified sleep apnea Patien t Active Problem List Diagnosis Code Carotid stenosis, left I65.22 Hyperlipidemia with target LDL less than 100 E78.5 HTN, goal below 140/90 I10 Monoallelic mutation of SCN5A gene Z15.89 MEDICA TIONS: Current Outpatient Medications Medication Sig Dispense Refill betamethasone dipropionate (DIPROSONE) 0.05 % cream Apply topically to affected area 2 times a day.To affected area. 45 g 3 amLODIPine Besylate 10 MG Oral Tablet (Norvasc) TAKE 1 TABLET BY MOUTH EVERY DAY 90 Tablet 2 Fluticasone Propionate 50 MCG/ACT Nasal Suspension (Flonase) Administer into each nostril 2 Sprays in the morning. 16 g 2 Ipratropium [place] 0.03 % Nasal Solution (Atrovent) Administer 2 Sprays into each nostril 2 times a day as needed for Rhinitis. 90 mL 3 Rivhkwqwze-Wlbkhdt-Jykhqcew 50-325-40 MG Oral Capsule Take 1 Capsule by mouth every 4 hours as needed for Pain, Moderate. (Patient not taking: Reported on 11/20/2022) 30 Capsule 0 traMADol HCl 50 MG Oral Tablet (Ultram) Take 1 Tablet by mouth every 8 hours as needed for Pain, Moderate. 30 Tablet 0 Atorvastatin Calcium 40 MG Oral Tablet (Lipitor) TAKE 1 TABLET BY MOUTH EVERY DAY IN THE MORNING 90Tablet 3 Meclizine HCl 25 MG Oral Tablet (Antivert) Take 1 Tablet by mouth 3 times a day as needed for Dizziness. 30 Tablet 1 Candesartan Cilexetil 32 MG Oral Tablet (Atacand) Take 1 Tablet by mouth in the morning. 90 Tablet 5 hydroCHLOROthiazide 25 MG Oral Tablet (Hydrodiuril) Take 1 Tablet by mouth in the morning. 90 Tablet 3 Amoxicillin-Pot Clavulanate 875-125 MG Oral Tablet (Augmentin) Take 1 Tablet by mouth in the morning and 1 Tablet before bedtime. Do all this for 7 days. 14 Tablet 0 oxyCODONE HCl 5 MG Oral Tablet (Oxy IR) Take 1 Tablet by mouth every 4 hours as needed for severe pain. 10 Tablet 0 No current facility-administered medications for this visit. ALLERG Y: Pollen OBJECTIVE: GEN: Healthy, alert, no distress, appears oriented, pleasant, and cooperative. SKIN: Detailed exam of face including lids and lips, neck completed and are normal except: 1. Right cheek - 8 mm waxy brown stuck on papule ASSESSMENT/PLAN: 1. Irritated seborrheic keratosis Seborrheic Keratosis -Reassured of the benign nature of lesion -Discussed with patient that they may get more of these lesions in the future -Cryosurgery procedure, risks and benefits explained to the patient. Specifically, side effects including blistering, hyperpigmentation, hypopigmentation, scar or pain at procedure site was discussedand patient verbalized understanding. Consent was obtained by patient. Patient, site and procedure verified. Cryotherapy was performed with Liquid Nitrogen via cryo spray unit to 1 lesions. Location noted in physical exam. Post op course explained. -Images taken today Follow-up: prn Patient Phone Numbers Applicable photos (if any) and chart reviewed by Dr. Edgardo Moser Presumed diagnoses, expected natural histories, and management options discussed with the patient at length. Questions were addressed and anticipatory guidance provided.The patient was encouraged to contact me with any further questions or concerns. Elicia Graves PA-C 02/28/2023 * Edgardo Moser MD - 02/28/2023 11:40 AM EST I have seen and examined the patient via teledermatology review of chart note and photos with Elicia Graves PA-C. I have reviewed and agree with the assessment and plan. Carl Moser MD documented in this encounter Nursing Notes * Vangie Timmons, MED ASSIST - 02/28/2023 11:41 AM EST Chief Complaint Patient presents with NEW PATIENT Pt has raised, brown lesion on R cheek that appeared this past Summer. Does not itch, bleed, or grown in size. Last saw Dr. Hernandez in 2019. No h/o skin cancer. documented in this encounter Plan of Treatment Upcoming Encounters Date Type Department Care Team (Late st Contact Info) Description 07/22/2023 1:00 PM EDT Office Visit Family Practice State Peggy Lucero [address] [facility] [place] [address] Len Banda III, MD [address] [facility] [place] [address] Scheduled Procedures Name Priority Associated Diagnoses Date/Ti [...] Procedure Name Priority Date/Time Associated Diagnosis Comments DERM IMAGE (SITE) Routine 02/28/2023 Inflamed seborrheic keratosis documented in this encounter Results * DERM IMAGE (SITE) (02/28/2023) 02/28/2023 Elicia Graves PA-C DIGITAL PHOTOGRAPHY documented in this encounter Visit Diagnoses Diagnosis Inflamed seborrheic keratosis- Primary documented in this encounter Advance Directives Latest Code Status on File Code Status Date Activated Date Inactivated Comments Full Code 09/02/2008 3:34 PM 09/03/2008 3:24 PM This or boni reflects the patients wishes and were consensually agreed upon. Care Teams Gunite Mixer Relationship Specialty Start Date End Date Len Banda III, MD [address] [place] [address] PCP - General Family Medicine 02/04/18 documented as of this encounter
--- OUTSIDE RECORDS SUMMARY | 2023-04-12 22:16 | External Medical Summary | Summary of Care ---
Author Name Unknown Organization [facility] Address [address] [place] [address] Phone [phone] Care Team Providers Care Installation Superintendent Name Role Phone Veronika GAVIN MD, Len Patino Primary Care Provider [phone] Reason for Referral * Precert (Within 10 days (routine)) - Authorized Specialty Diagnoses / Procedures Referred By Toshia vazquez Referred To Contact Radiology Diagnoses Nasal polyps Procedures CT SINUS IMAGE GUIDED WO CONTRAST Nicholas Gomez MD [address] [place] [address] Referral ID Status Reason Start Date Expiration Date V isits Requested Visits Authorized [id number] Authorized Precert 11/20/2022 12/28/2022 999 999 Reason for Visit * Reason Comments NEW PATIENT sinus * Evaluate & Treat - Unlimited Visits (Within 10 days (routine)) - Pending Review Specialty Diagnoses / Procedures Referred By Toshia vazquez Referred To Contact Otolaryngology Diagnoses Chronic sinusitis, unspecified location Len Banda III, MD [address] [place] [address] Referral ID Status Reason Start Date Expiration Date Visits Requested Visits Authorized [id number] Pending Review Specialty Services Required 09/24/[phone] Encounter Details Date Type Department Care Team Description 11/20/2022 Office Visit Otolaryngology/Head & Neck/Facial Plastic Surgery [address] [place] [address] Nicholas Gomez MD [address] [place] [address] Chronic rhinitis*; Nasal polyps Allergies Active Allergy Reactions Severity Noted Date Comments Pollen Other (Please comment) 09/17/2022 Nasal congestion and drainage documented as of this encounter (statuses as of 12/15/2022) Medications Medication Sig Dispensed Refills Start Date [...] morning. 90 Tablet 2 01/21/2022 Active Ipratropium [place] 0.03 % Nasal Solution (Atrovent) Administer 2 [...] as of this encounter (statuses as of 12/15/2022) Active Problems Problem Noted Date Monoallelic mutation of SCN5A gene 01/26 Overview: pathogenic SCN5A gene variant (c.3988G>A, p.[id number]) detected via [facility]. Increased risk for Inherited Arrhythmias. Carotid stenosis, left 06/11/2013 Hyperlipidemia with target LDL less than 100 06/11/2013 Overview: ICD-10 update of inactive term HTN, goal below 140/90 06/11/2013 documented as of this encounter (statuses as of 12/15/2022) Resolved Problems Problem Noted Date Resolved Date TIA (transient ischemic attack) 06/24/2013 11/25/2016 Other atopic dermatitis 01/15/2010 12/03/19 19 Overview: ICD-10 update of inactive term Sleep apnea 09/02/2008 11/25/2016 Family history of ischemic heart disease 008 11/25/2016 Family history of GI malignancy 12/11/2007 11/25/2016 documented as of this encounter (statuses as of 12/15/2022) Immunizations Name Administration Dates Next Due Pneumococcal [...] Date Smoking Tobacco: Never Smokeless Tobacco: Never Tobacco Cessation:Counseling Given: Not Answered Comments:no passive smoke Alcohol Use Standard Drinks/Week [...] Sign Reading Time Taken Comments Blood Pressure 152/87 11/20/2022 11:01 AM EDT Pulse 67 11/20/2022 11:01 AM EDT Temperature 36.2 C (97.2 F) 11/20/2022 11:01 AM E DT Respiratory Rate 18 11/20/2022 11:01 AM EDT Oxygen Saturation - - Inhaled Oxygen Concentration - - Weight 83.1 kg (183 lb 1.6 oz) 11/20/2022 11:01 AM EDT Height 170.2 cm (5' 7") 11/20/2022 11:01 AM EDT Body Mass Index 28.68 11/20/2022 11:01 AM EDT documented in this encounter Progress Notes * Nicholas Gomez MD - 11/20/2022 11:25 AM EDT Images from the original note were not included. Department of Otolaryngology - Head and Neck Surgery Facial Plastic Surgery [address] [address] 11/20/2022 11:26 AM History of Present Illness: Kory Palumbo is a 76 year old male is seen at the request of Len Banda III, MD for the initial evaluation of his sinuses. The patient reports that the li are usually pretty good for him as far as his sinuses but the winter is horrible. 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 He did have allergy testing but was told he had minimal allergies. His allergy test was in may and he had Class one allergies to two items on a RAST panel. He says his symptoms have really been in the last five years. [place] farm during th[place]ime. He does not get abx's for sinus infections. He does not know that he gets infections. He is on Flonase and also tried Atrovent but neither has helped. He does sometimes take an antihistamine and he feels like this sometimes makes a difference. His sinus symptoms are mainly a stuffy nose and phlegm going down the back of his throat. He does not have any recent imaging. Patient Active Problem List Diagnosis Code Carotid stenosis, left I65.22 Hyperlipidemia with target LDL less than 100 E78.5 HTN, goal below 140/90 I10 Monoallelic mutation of SCN5A gene Z15.89 Past Medical History: Diagnosis Date Carotid stenosis, left 06/11/2013 Family history of GI malignancy 12/11/2007 Family history of ischemic heart disease 12/11/2007 INFORMATION hepatitis age 21 from mono Other atopic dermatitis and related conditions Renal calculi 2002 Sleep apnea 09/02/2008 TIA (transient ischemic attack) 06/24/2013 Unspecified sleep apnea Past Surgical History: Procedure Laterality Date APPENDECTOMY W/OTHER PROCEDURE COLONOSCOPY W/ BIOPSY (RECTUM) 01/15/08 await path, repeat in 3-5 years COLONOSCOPY, DIAGNOSTIC (RECTUM) 02/05/2013 COLONOSCOPY FLEXIBLE PROXIMAL DIAGNOSTIC performed by Alan Peres MD at ENDOSCOPY [facility] COLONOSCOPY, DIAGNOSTIC (RECTUM) 08/26/2018 normal, repeat 5 yrs/COLONOSCOPY FLEXIBLE PROXIMAL DIAGNOSTIC performed by Alan Peres MD at ENDOSCOPY [facility] REMOVE TONSILS & ADENOIDS, AGE 12+ Tonsillectomy/Adenoids,12+ Y/O REPAIR ARM TENDON/MUSCLE left, approx 2009 REVISION OF PALATE, PHARYNX/UVULA 09/02/08 PALATOPHARYNGOPLASTY performed by IDRIS BEAL at OR [facility] Medications Current Outpatient Medications Medication Sig Dispense Refill betamethasone dipropionate (DIPROSONE) 0.05 % cream Apply topically to affected area 2 times a day.To affected area. 45 g 3 amLODIPine Besylate 10 MG Oral Tablet (Norvasc) TAKE 1 TABLET BY MOUTH EVERY DAY 90 Tablet 2 Fluticasone Propionate 50 MCG/ACT Nasal Suspension (Flonase) Administer into each nostril 2 Sprays in the morning. 16 g 2 hydroCHLOROthiazide 25 MG Oral Tablet (Hydrodiuril) Take by mouth 1 Tablet in the morning. 90 Tablet 2 Candesartan Cilexetil 32 MG Oral Tablet (Atacand) TAKE 1 TABLET BY MOUTH EVERY DAY IN THE MORNING 90 Tablet 0 Atorvastatin Calcium 40 MG Oral Tablet (Lipitor) TAKE 1 TABLET BY MOUTH EVERY DAY IN THE MORNING 90Tablet 3 Ezetimibe 10 MG Oral Tablet (Zetia) Take 1 Tablet by mouth in the morning. 90 Tablet 0 Meclizine HCl 25 MG Oral Tablet (Antivert) Take by mouth 1 Tablet as needed in the morning AND 1 Tablet as needed at noon AND 1 Tablet as needed in the evening for Dizziness. 30 Tablet 1 Ipratropium [place] 0.03 % Nasal Solution (Atrovent) Administer 2 Sprays into each nostril 2 times a day as needed for Rhinitis. (Patient not taking: Reported on 11/20/2022) 90 mL 3 Wjwqrhipjd-Wjiwtnd-Yoxhstge 50-325-40 MG Oral Capsule Take 1 Capsule by mouth every 4 hours as needed for Pain, Moderate. (Patient not taking: Reported on 11/20/2022) 30 Capsule 0 traMADol HCl 50 MG Oral Tablet (Ultram) Take 1 Tablet by mouth every 8 hours as needed for Pain, Moderate. (Patient not taking: Reported on 11/20/2022) 30 Tablet 0 Carvedilol 12.5 MG Oral Tablet (Coreg) Take 0.5 Tablets by mouth in the morning and 0.5 Tablets before bedtime. With food. (Patient not taking: Reported on 11/20/2022) 60 Tablet 11 No current facility-administered medications for this visit. Allergies Review of patient's allergies indicates: Allergen Reactions Pollen Other (Please comment) Nasal congestion and drainage Family History Family History Problem Relation Age of Onset Heart Disorder Father alcohol consuption, smoker. Cancer Mother colon ca No Past Hx Brother mva No Past Hx Daughter No Past Hx Daughter Social History Social History Tobacco Use Smoking status: Never Smokeless tobacco: Never Tobacco comments: no passive smoke Substance Use Topics Alcohol use: Yes Alcohol/week: 2.5 standard drinks Types: 3 12 oz of beer per week Comment: 5 drinks/week Vaping/E-Cigarette Use Vaping/E-Cigarette Use Never User Passive Exposure No Counseling Given? No Vaping/E-Cigarette Substances Vaping/E-Cigarette Devices Occupational History Retired Review of Systems Negative for constitutional, eyes, cardiac, pulmonary, hepatic, renal, digestive, hematologic, epileptic, syncopal, musculo-skeletal, mental health, integumentary, hypertensive, lipid, arthritic, diabetic, thyroid, or neurologic disorders (except as listed in the PMH and Problem List). Physical Examination: Vital Signs: Filed Vitals: 11/20/22 1101 BP: 152/87 Pulse: 67 Resp: 18 Temp: 36.2 C (97.2 F) TempSrc: Infrared Weight: 83.1 kg (183 lb 1.6 oz) Height: 1.702 m (5' 7") General: Alert and in no apparent distress. Face: No cutaneous masses or lesions visualized. Parotid and submandibular glands normal to palpation. Cranial Nerves: CN II, III, IV, and : intact via extra-ocular muscle movement testing CN VII: intact and symmetric by facial movement CN VIII: refer to tuning fork exam CN IX and X: intact by gag reflex and palatal movement CN XII: intact by active and symmetric tongue movement Nose: No masses, polyps, mucopus, or other lesion. Septum non-obstructing. The turbinates without abnormality. Oral Cavity: No mass lesions or infection. Hard palate noted to be intact without evidence of clefting. Mucosa was moist without lesion. Dentition: Unremarkable Oropharynx: No mass lesion or mucosal abnormality. Soft palate was noted to without lesion. Uvula was normal appearing. The tonsils were unremarkable. Ears: Auricles normally formed without lesions. External auditory canals clear of cerumen. : Tympanic membrane without perforations and mobile. No retraction pockets, inflammation, or effusions. AD: Tympanic membrane without perforations and mobile. No retraction pockets, inflammation, or effusions. Neck: No mass lesions, no thyromegaly or thyroid masses. No skin lesions or inflammatory processes.Cervical musculature normal to palpation. Lymphatics (cervical): No palpable lymph nodes in the posterior triangle, submandibular triangle, jugulodigastric region, or central neck. Procedure Note: Fiberoptic examination of the larynx after topical application of Afrin and Lidocaine revealed: The nasal passages and the middle meatus on each side was noted to have nasal polyps Vocal cord mobility was normal without paralysis or paresis. There was no significant edema or erythema of the larynx. Exam was negative for post cricoid or pyriform sinuses lesions. No significant pooling or aspiration was noted. Examination revealed no mass lesions. Assessment: 76 year old male with a sinus symptoms, posterior drainage, and nasal polyps on exam. Plan: Pt noted to have nasal polyps on exam. Recommend CT sinus with image guidance for further evaluation. The patient will likely require surgery, which was discussed. Will call to review further after CT obtained. Nicholas Gomez MD, FACS Head & Neck Surgical Oncology, Microvascular Reconstruction, and Robotic Surgery 11/20/2022 11:26 AM documented in this encounter Plan of Treatment Upcoming Encounters Date Type Specialty Care Team Description 01/15/2023 Office Visit Family Medicine Veronika III, Len Patino MD [address] [place] [address] Scheduled Procedures Name Priority Associated Diagnoses Date/Ti me COLONOSCOPY FLEXIBLE PROXIMA L DIAGNOSTIC Recall History of colon polyps Family history of colon cancer Health Maintenance Due Date Last Done Comments Depression Screening 11/08/2022 11/08/2021 *NEPHROLOGY REFERRAL DUE TO RESISTANT [...] Not on filedocumented as of this encounter Results * CT SINUS IMAGE [...] hard palate are intact. There is mild ppos-xx-shvuw bowing of the bony nasal septum. There [...] hard palate are intact. There is mild thit-kw-nxpyv bowing of the bony nasal septum. There [...] documented in this encounter Visit Diagnoses Diagnosis Chronic rhinitis- Primary Nasal polyps Unspecified nasal polyp Nasal polyps Unspecified nasal polyp documented in this encounter Advance Directives Latest Code Status on File Code Status Date Activated Date Inactivated Comments Full Code 09/02/2008 3:34 PM 09/03/2008 3:24 PM This or boni reflects the patients wishes and were consensually agreed upon. Care Teams Installation Superintendent Relationship Specialty Start Date End Date Len Banda III, MD [address] [place] [address], [place] [address] PCP - General Family Medicine 02/04/18 documented as of this encounter
--- OUTSIDE RECORDS SUMMARY | 2023-04-12 22:16 | External Medical Summary | Summary of Care ---
Author Name Unknown Organization [facility] Address [address] [place] [address] Phone [phone] Care Team Providers Care Rug Washer Name Role Phone Veronika GAVIN MD, Len Patino Primary Care Provider [phone] Encounter Details Date Type Department Care Team Description 11/19/2022 Orders Only Outcomes Research Department [address] [place] [address] Jeni Burger CHRA [facility] Other*[id number] Allergies Active Allergy Reactions Severity Noted Date Comments Pollen Other (Please comment) 09/17/2022 Nasal congestion and drainage documented as of this encounter (statuses as of 11/19/2022) Medications Medication Sig Dispensed Refills Start Date [...] Information Patient not taking.Reported on 09/17/2022 Ipratropium [place] 0.03 % Nasal Solution (Atrovent) Administer 2 [...] Active Atorvastatin Calcium 40 MG Oral Tablet (Lipitor)Indication [...] as of this encounter (statuses as of 11/19/2022) Active Problems Problem Noted Date Monoallelic mutation of SCN5A gene 01/26 Overview: pathogenic SCN5A gene variant (c.3988G>A, p.P5522V) detected via [employer]. Increased risk for Inherited Arrhythmias. Carotid stenosis, left 06/11/2013 Hyperlipidemia with target LDL less than 100 06/11/2013 Overview: ICD-10 update of inactive term HTN, goal below 140/90 06/11/2013 documented as of this encounter (statuses as of 11/19/2022) Resolved Problems Problem Noted Date Resolved Date TIA (transient ischemic attack) 06/24/2013 11/25/2016 Other atopic dermatitis 01/15/2010 12/03/19 19 Overview: ICD-10 update of inactive term Sleep apnea 09/02/2008 11/25/2016 Family history of ischemic heart disease 008 11/25/2016 Family history of GI malignancy 12/11/2007 11/25/2016 documented as of this encounter (statuses as of 11/19/2022) Immunizations Name Administration Dates Next Due Pneumococcal [...] Visit Otolaryngology Nicholas Gomez MD [address] [place] [address] 01/15/2023 Office Visit Family Medicine VeronikaLen oliva III, MD [address] [place] [address] Scheduled Orders Name Type Priority Associated Diagnoses Orde r Schedule MYCODE SUBSEQUENT ADULT Lab Routine [facility] Other*[id number] Every 6 Months for 2 Occurrences starting 11/19/2022 until 2023 Scheduled Procedures Name Priority Associated Diagnoses Date/Ti [...] as of this encounter Visit Diagnoses Diagnosis [facility] Other*[id number] documented in this encounter Advance Directives Latest Code Status on File Code Status Date Activated Date Inactivated Comments Full Code 09/02/2008 3:34 PM 09/03/2008 3:24 PM This or boni reflects the patients wishes and were consensually agreed upon. Care Teams Rug Washer Relationship Specialty Start Date End Date Len Banda III, MD [address] [place] [address] PCP - General Family Medicine 02/04/18 documented as of this encounter
--- OUTSIDE RECORDS SUMMARY | 2023-04-12 22:16 | External Medical Summary | Summary of Care ---
Author Name Unknown Organization [facility] Address [address] [place] [address] Phone [phone] Care Team Providers Care Security Messenger Name Role Phone Veronika GAVIN MD, Len Patino Primary Care Provider [phone] Reason for Visit * Auth/Cert Specialty Diagnoses / Procedures Referred By Toshia t Referred To Contact Diagnoses Chronic rhinitis Chronic rhinitis [J31.0] Procedures NASAL/SINUS ENDOSCOPY, SURGICAL NASAL ENDOSCOPY/EXPLOR MAXIL SINUS STEREOTACTIC CRANIAL EXTRADURAL NAVIGATION NASAL SINUS ENDOSCOPY SURGICAL NASAL SINUS ENDOSCOPY MAXILLARY ANTROSTOMY STEREOTACTIC CRANIAL EXTRADURAL NAVIGATION Referral ID Status Reason Start Date Expiration Date Visits Re quested Visits Authorized [id number] Encounter Details Date Type Department Care Team (Latest Contact Info) Description 02/26/2023 9:09 AM EST - 02/26/2023 1:23 PM [facility] Hospital Encounter [facility], OPER[facility] [place] [facility] [address] [place] [address] Nicholas Gomez MD [address] [place] [address] Discharge Disposition: Home - Self Care Allergies Active Allergy Reactions Criticality Noted Date Comments Pollen Other (Please comment) 09/17/2022 Nasal congestion and drainage documented as of this encounter (statuses as of 02/27/2023) Medications Medication Sig Dispensed Refills Start Date [...] morning. 16 g 2 01/10/2022 Active Ipratropium Norcatur 0.03 % Nasal Solution (Atrovent) Administer 2 Sprays into each nostril 2 times a day as needed for Rhinitis. 90 mL 3 08/12/2022 Active Butalbital-Aspirin- Caffeine 50-325-40 MG Oral Capsule [...] ns:Benign paroxysmal vertigo of right ear Take 1 Tablet by mouth 3 times a day as needed for Dizziness. 30 Tablet 1 01/15/2023 Active Candesartan Cilexetil 32 MG Oral Tablet (Atacand)Indication s:HTN, goal below 140/90 Take 1 Tablet by mouth in the morning. 90 Tablet 5 01/15/2023 Active hydroCHLOROthiazide 25 MG Oral Tablet (Hydrodiuril)Indica tions:HTN, goal below 140/90 Take 1 Tablet by mouth in the morning. 90 Tablet 3 01/15/2023 Active Amoxicillin-Pot Clavulanate 875-125 MG Oral Tablet (Augmentin) Take 1 Tablet by mouth in the morning and 1 Tablet before bedtime. Do all this for 7 days. 14 Tablet 0 02/26/2023 03/05/2023 Active oxyCODONE HCl 5 MG Oral Tablet (Oxy IR) Take 1 Tablet by mouth every 4 hours as needed for severe pain. 10 Tablet 0 02/26/2023 Active Ezetimibe 10 MG Oral Tablet (Zetia) Take 1 Tablet by mouth in the morning. 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 Increased risk for Inherited Arrhythmias. Carotid stenosis, left 06/11/2013 Hyperlipidemia with target LDL less than 100 Overview: ICD-10 update of inactive term HTN, goal below 140/90 06/11/2013 documented as of this encounter (statuses as of 02/27/2023) Resolved Problems Problem Noted Date Diagnosed Date Resolved Date TIA (transient ischemic attack) 06/24/2013 11/25/2016 Other atopic dermatitis 01/15/201006/2018 Overview: ICD-10 update of inactive term Sleep apnea 09/02/2008 11/25/2016 Family history of ischemic heart disease 12/11/2007 11/25/2016 Family history of GI malignancy 12/11/2007 11/25/2016 documented as of this encounter (statuses as of 02/27/2023) Immunizations Name Administration Dates Next Due Pneumococcal [...] Sign Reading Time Taken Comments Blood Pressure 132/62 02/26/2023 1:00 PM EST Pulse 62 02/26/2023 1:00 PM EST Temperature 36.3 C (97.3 F) 02/26/2023 12:[address] Respiratory Rate 20 02/26/2023 1:00 PM EST Oxygen Saturation 99% 02/26/2023 1:00 PM EST Inhaled Oxygen Concentration - - Weight 83 kg (183 lb) 02/26/2023 9:23 AM EST Height 170.2 cm (5' 7") 02/26/2023 9:23 AM EST Body Mass Index 28.66 02/26/2023 9:23 AM EST documented in this encounter Discharge Instructions * Discharge Instr - AVS* Ricci Noland MD - 02/26/2023 12:07 PM EST 02/26/[address] Gomez of the department of ENT at [phone] during business hours for any questions or test results. For after-hours emergencies call [phone] and have your doctor paged. The information below provides you with the instructions and the list of medications you need to betaking following discharge from the hospital. If you have any questions, please ask before leaving.Please carry this letter with you when you see your doctor in the clinic. If you have questions, you can reach us at the numbers above. Diet: Regular diet, as tolerated If nausea should occur, have clear liquids only until stomach has settled. Activity: Rest today and tomorrow, and then increase activity as tolerated. No strenuous activity for 2 weeks. Driving: One week and no driving within 24 hours of taking narcotic pain medication Date you may return to work or school: Two weeks These follow-up appointments have been scheduled or are in the process of being scheduled. If you have questions about your appointments, please call . When asked to state the name of the physician, please say "Hospital Discharge". Follow up in 10 - [address] Gomez. Special Instructions: DISCHARGE INSTRUCTIONS FOR ENDOSCOPIC SINUS SURGERY NASAL IRRIGATIONS: The purpose of irrigating is to clean the secretions from your nose to help decrease scarring. Thisis extremely important. Good post-operative irrigation on your part is essential for a successful outcome. Use the 240ml NeilMedTM sinus asphalt tamping machine operator to irrigate your nose/sinuses beginning the day after your surgery. Instructions: Place one packet of salt solution into the asphalt tamping machine operator and fill the bottle with DISTILLED WATER. You may warm the saline solution to make this more comfortable (it should be warm NOT HOT). Stand over the sink. Bend over at the waist (head facing toward the floor), insert the tip of the syringe into the nose. Open your mouth. With force, squeeze the solution into your nostril. Let the solution flow into the sink from your nose and mouth. Irrigate each nostril with 240ml of saline solution (one bottle per nostril) 3 times daily. Continue to irrigate with this amount until we instruct you otherwise. You may wish to mix your own saline solution. The recipe is as follows: 3 teaspoons of tata/pickling salt (make sure it is NON-iodized salt) 2 teaspoons of baking soda 1 gallon of boiled or distilled water OTHER INSTRUCTIONS: SLEEPING - It is recommended that for the first few days after surgery that you sleep with your head elevated. This will decrease your post-operative nasal congestion. DIET - You may resume your normal diet as you feel up to it. A healthy, balanced diet is best for healing. ACTIVITY - You may resume light activity in 1-2 days. No strenuous physical activity is recommendedfor 2 weeks due to the risk of bleeding. If you feel tired over the first few days you should lie down and rest. MEDICATIONS - Resume your home medications. You will be given a prescription for pain medication when you leave the hospital. For mild discomfort take Tylenol, 2 every 4 to 6 hours as needed. For moderate discomfort, use your prescription as directed. DRIVING - Do not drive within 24 hours of receiving anesthesia. You are advised not to drive if youare taking prescription pain medication. PLEASE CALL OUR OFFICE IF YOU HAVE ANY OF THE FOLLOWING: Any vision problems Fever over 101 F Heavy or prolonged bright red bleeding from the nose Any questions or concerns documented in this encounter H&P Notes * Nicholas Gomez MD - 02/26/2023 10:15 AM EST HISTORY & PHYSICAL INTERVAL NOTE [facility] [id number] History and Physical Update: Name: Kory Palumbo Location: [place] [facility] Date: 02/26/2023 Time: 10:15 AM DATE OF HISTORY AND PHYSICAL: 02/26/23 BP: 161 mmHg/75 mmHg (02/26/23936) Pulse: 70 (02/26/23936) Temp: 36.94 C (02/26/23936) Resp: 17 (02/26/23936) SpO2: 98 % (02/26/23936) Does patient take a beta vivian? No Did patient stop anticoagulants? Took ibuprofen Heart Exam: regular rate and rhythm Lung Exam: clear to auscultation bilaterally Other Pertinent Physical Exam: None I have reviewed the H&P previously performed and examined the patient today. There are no new findings noted. documented in this encounter Nursing Notes * Chary Eagle RN - 02/26/2023 11:49 AM EST Dual Licensed Skin Assessment completed by Chary Eagle RN and Luis Mendosa RN. The patient is/has a N/A Skin Breakdown (includes non blanchable erythema): Yes - Surgical/Procedural changes only. * Fabio Boles RN - 02/26/2023 10:09 AM EST Dual Licensed Skin Assessment completed by Zurdo Boles RN and Ghassan King RN. The patient is/has a N/A Skin Breakdown (includes non blanchable erythema): No * Adrián Calderon RN - 02/24/2023 11:35 AM EST NO ANESTHESIA EVAL REQUESTED PER CASE DOCUMENTATION. PREOP PATIENT INFORMATION AND EDUCATION: MEDICATION INSTRUCTIONS: The day of surgery/procedure, you may TAKE the following medications with a sip of water up to 2 hours prior to your arrival time: Meclizine if needed Atorvastatin Tramadol if needed Amlodipine AVOID/ DO NOT TAKE any medications the morning of surgery/procedure that are not listed above. AVOID / DO NOT TAKE the following medications the morning of surgery/procedure: Hydrochlorothiazide Candesartan STOP taking the following medications the noted number of days prior to surgery/procedure unless otherwise specified by your surgeon: Please reach out to your surgeon/prescriber if you did not receive preop instructions regarding your Wlubfao-hjzwyjxmtk-eufogkkt. Please follow surgeon's instructions regarding use of Aspirin, Coumadin, Plavix, Eliquis, and any other blood thinner including NSAIDs (non-steroidal anti- inflammatory drugs, eg, Advil, Ibuprofen, Motrin, Aleve, Naproxen). 10 days prior to surgery/procedure Stop all Herbal supplements, Green Tea, Turmeric, Melatonin, CBD, THC, etc. Stop all Vitamins (including Vitamin E) 24 hours prior to surgery/procedure DO NOT consume any alcohol. DO NOT use medical marijuana. DO NOT smoke or use tobacco products of any kind after midnight prior to surgery. *Using any of these products may increase your risks of procedural complications. IF IT IS LESS THAN RECOMMENDED STOPPAGE TIME PLEASE STOP AT TIME OF NOTIFICATION. FASTING RECOMMENDATIONS: To reduce risk, it is important for all elective surgery patients to follow the specific fasting guidelines listed below. DO NOT EAT after midnight on the night prior to your surgery date. You are allowed to drink clear liquids up to two hours prior to arrival time to the hospital or surgery center. Examples of clear liquids include water, clear fruit juice without pulp, clear carbonated beverages, clear tea, and black coffee. Any drinks given by your surgical service take as directed. Infant/pediatric patients who currently drink breast milk, formula, and non-human milk must not eat after midnight. These patients are allowed to drink only the liquids listed below up to two hours prior to arrival time to the hospital or surgery center: Ingested Material Minimum Fasting Time Clear liquid After midnight up to 2 hours prior to arrival time Breast milk Up to 4 hours prior to arrival time formula Up to 6 hours prior to arrival time Non-human milk Up to 6 hours prior to arrival time THE DAY BEFORE YOUR SURGERY: -Drink plenty of fluid the day before your surgery. Contact your surgeon's office if you develop any of the following within 2 weeks of surgery: A cold Infection Fever Shingles Chicken pox or exposure to chicken pox Open areas such as scrapes, cuts, ho or other skin conditions Rashes GENERAL INSTRUCTIONS FOR PREPARING FOR SURGERY: BATHING INSTRUCTIONS: Bathe the evening prior to and the morning of surgery/procedure. Cleanse your body using ONLY anti-bacterial soap (eg, Dial, Safeguard) or any specific soap/cleansers and instructions provided by your surgeon (eg, Chlorhexidine). -You should brush your teeth the morning of surgery. Do NOT apply any lotions, powders, sprays, creams, oils, make-up, or deodorants after bathing. No hairspray, or nail romanian on fingers or toes. Day of surgery/procedure do not use tampons. If you wear contacts wear your eyeglasses if available otherwise bring your contact supplies with you to remove them prior to your surgery/procedure. If you wear glasses or dentures, please bring cases in which you can store them during your surgery. Please remove all piercings and jewelry and leave them at home. Wear comfortable and loose clothing. -Please leave all valuables at home. -If you use a CPAP and are staying overnight, please bring your mask and tubing with you to the hospital. -If you use an assistive mobility device (walker, cane, etc), please label it with your name and bring to hospital. -An escort pile driver operator helper is required if you are being discharged the same day of the surgery. You should have a responsible adult over the age of 18 [address] you home. This person should be present with youin the hospital at the time of discharge and for the first 24 hours after the surgery to support your needs. If you are taking a taxi home, you must have your responsible libertarian accompany you in the taxi ride home at the time of discharge. OR times subject to change. Please check [employer] messages the day/evening before your surgery forany updates. PRE-OP: You will be taken to the pre-op area where your vital signs (blood pressure, pulse and temperature)will be taken. Any preparations that need to be done will be done there. When it is time for your surgery, you will be taken to the operating room. PARENTS OF PEDIATRIC PATIENTS WILL BE ALLOWED TO STAY WITH THEIR CHILDREN UNTIL THEY ARE ESCORTED TO THE OPERATING ROOM OUTPATIENT SURGERY PATIENTS: After your surgery you will be taken to the Same Day Surgery Unit when you are awake and will go home from there. You will get instructions about your home care before you leave. Arrange to have someone drive you home from the hospital. You may not drive for 24 hours after anesthesia. You must havean adult stay with you at home for 24 hours after your operation. This is very important. If you are not able to comply with these guidelines, your Short Stay surgery cannot be done. ADMISSION PATIENTS: After your stay in the recovery area, you will be taken to your room. Your family may visit you in your room based on current visitation policy. If a next day discharge is expected, it is important to make arrangements for a pile driver operator helper to take you home. Please be aware our visitation policies are subject to change Professionals, attendants, caregivers or family members are allowable visitors for patients with intellectual, developmental or cognitive disabilities, communication barriers or behavioral concerns. Because patients' and families' needs vary, they will be taken into account when applying visitation restrictions. [facility]: Contact # [phone] Directions to Surgical Suite in from the [facility] Entrance The Surgical Waiting Room can be found in the Lobby of [facility]. Enter through Main Lobby Entrance and the Waiting Room is directly in front of you. Proceed to check in and give them your name. Directions to Surgical Suite from the East Entrance Enter the East entrance and follow the hallway to the J elevator. Take the J elevator up to Level 1. Continue down the long hallway to the main [facility] Lobby. The Surgical Waiting Room will be on your Right. Proceed to check in and give them your Name. Directions to Surgical Suite from the Parking Garage Enter the [facility] lobby and proceed down the olivera to the left. At the end of the olivera, turn right. Continue down the long hallway to the main [facility] Lobby. The Surgical Waiting Room will be on your Right. Proceed to check in and give them your Name. THANK YOU FOR CHOOSING [facility]! Pre-operative chart review completed. Presurgery instructions sent to patient via [employer] message. documented in this encounter Plan of Treatment Upcoming Encounters Date Type Department Care Team (Late st Contact Info) Description 07/22/2023 1:00 PM EDT Office Visit [facility] [address] [place] [address] Len Banda III, MD [address] [place] [address] Pending Results Name Type Priority Associated Diagnoses Date /Time SURGICAL PATHOLOGY Pathology Routine Chronic rhinitis 02/26/2023 11:02 AM EST Scheduled Orders Name Type Priority Associated Diagnoses Orde r Schedule EKG EKG STAT Preop testing One Time for 1 Occurrences starting 02/26/2023 until 02/26/2023 EKG EKG Routine Preoperative clearance One Time for 1 Occurrences starting 02/26/2023 until 02/26/2023 SURGICAL PATHOLOGY Pathology Routine Chronic rhinitis Release Upon Ordering for 1 Occurrences starting 02/26/2023, 1 completed Scheduled Procedures Name Priority Associated Diagnoses Date/Ti [...] Procedure Name Priority Date/Time Associated Diagnosis Comments GLUCOSE METER, POINT OF CARE MATILDE 02/26/2023 9:47 AM EST documented in this encounter Results * GLUCOSE METER, POINT OF CARE (02/26/2023 9:47 AM EST) Glucose Meter 104 70 - 120 mg/dL 02/26/2023 9:50 AM EST [facility]ENTERApt[facility] Blood Whole blood specimen / Unknown 02/26/2023 9:47 AM EST 02/26/2023 9:50 AM EST Nicholas Gomez MD LAB POINT OF CAR E TEST DOCKED DEVICE UNSOLICITED RESULTS [facility] [address] [place] [address] documented in this encounter Visit Diagnoses Diagnosis Preoperative clearance Preoperative examination, unspecified Preop testing Preoperative examination, unspecified Chronic rhinitis documented in this encounter Administered Medications Inactive Administered Medications - up to 3 most recent administrations Medication Order MAR Action Action Date Dose Rate Site fentaNYL (PF) inj 50 mcg 50 mcg, IV Push, Q5 MIN PRN Pain, Mild, Pain, Moderate, Pain, Severe, Starting on Fri02/26/23 at 0915, Until Fri02/26/23 at 1729, For 4 doses, Administer up to a total of 200 mcg. Administer only postop in PACU When given IV Push its recommended that the dose be given over 3 to 5 minutes., PACU isolyte-S pH 7.4 infusion Intravenous, at 25 mL/hr, All Patients EXCEPT Dialysis patients Plasma-LYTE 148, isolyte-S, and isolyte-S pH 7.4 are considered equivalent - including for MAR barcode scanning., CONTINUOUS, Starting on Fri02/26/23 at 1015, Until Fri02/26/23 at 1729, Pre-Op Rate Change 02/26/2023 11:35 AM EST 750 mL/hr Continue from Pre-Op 02/26/2023 10:20 AM EST 25 mL/hr New Bag 02/26/2023 10:02 AM EST 25 mL/hr 25 mL/hr ondansetron (Zofran) inj 4 mg 4 mg, IV Push, Q6H PRN Nausea, Starting on Fri02/26/23 at 0916, Until Fri02/26/23 at 1729, For 1 day, Administer only during the first hour post-op in PACU., PACU oxygen GAS Inhalation, OXYGEN, First dose on Fri02/26/23 at 1000, Until Discontinued, Device/Managed by: Low Flow Device, Goal SPO2 (%): 91-95, Starting Device: Nasal Cannula, Initial Flow Rate (LPM): 2, Lowest Support: Nasal Cannula: Flow 0-6 LPM. Titrate up/down by 1 LPM., Higher Support: Non-Rebreather (NRB) Mask: Minimum of 10 LPM. Titrate to maintain bag inflation., Titration Interval: Q2 minutes and as needed., Notify Provider: Other, Notify Provider [other]: If SpO2 less than 88% or NOT maintaining SpO2 greater than 92% notify physician immediately., Until awake OR SpO2 greater than 95% for 15 minutes, then Titrate O2 flow rate down to maintain SpO2 greater than 92% If SpO2 is less than 88% place patient on NRB mask at 10 LPM documented in this encounter Active and Recently Administered Medications Times are shown in EST. Scheduled Medication Order 02/24/2023 02/25/2023 02/26/2023 oxygen GAS Inhalation, OXYGEN, First dose on Fri02/26/23 at 1000, Until Discontinued, Device/Managed by: Low Flow Device, Goal SPO2 (%): 91-95, Starting Device: Nasal Cannula, Initial Flow Rate (LPM): 2, Lowest Support: Nasal Cannula: Flow 0-6 LPM. Titrate up/down by 1 LPM., Higher Support: Non-Rebreather (NRB) Mask: Minimum of 10 LPM. Titrate to maintain bag inflation., Titration Interval: Q2 minutes and as needed., Notify Provider: Other, Notify Provider [other]: If SpO2 less than 88% or NOT maintaining SpO2 greater than 92% notify physician immediately., Until awake OR SpO2 greater than 95% for 15 minutes, then Titrate O2 flow rate down to maintain SpO2 greater than 92% If SpO2 is less than 88% place patient on NRB mask at 10 LPM 1000 (Due) Continuous Medication Order 02/24/2023 02/25/2023 02/26/2023 isolyte-S pH 7.4 infusion Intravenous, at 25 mL/hr, All Patients EXCEPT Dialysis patients Plasma-LYTE 148, isolyte-S, and isolyte-S pH 7.4 are considered equivalent - including for MAR barcode scanning., CONTINUOUS, Starting on Fri02/26/23 at 1015, Until Fri02/26/23 at 1729, Pre-Op 1002 (New Bag - Prov ider: Fabio Boles RN)1020 (Continue from Pre-Op - Provider: Kadi Jacobsen CRNA)1135 (Rate Change - Provider: Kadi Jacobsen CRNA)1138 (Stopped - Provider: Kadi Jacobsen CRNA) PRN Medication Order 02/24/2023 02/25/2023 02/26/2023 fentaNYL (PF) inj 50 mcg 50 mcg, IV Push, Q5 MIN PRN Pain, Mild, Pain, Moderate, Pain, Severe, Starting on Fri02/26/23 at 0915, Until 11/29/23 at 1729, For 4 doses, Administer up to a total of 200 mcg. Administer only postop in PACU When given IV Push its recommended that the dose be given over 3 to 5 minutes., PACU hemostatic matrix (Surgiflo) syringe (CANCELED) ONCE PRN INTRA PROCEDURE, Starting on Fri02/26/23 at 1112, Until Fri02/26/23 at 1133, Intra-Op 1112 (Given - Provid er: Nicholas Gomez MD - Comment: nose) ondansetron (Zofran) inj 4 mg 4 mg, IV Push, Q6H PRN Nausea, Starting on Fri02/26/23 at 0916, Until Fri02/26/23 at 1729, For 1 day, Administer only during the first hour post-op in PACU., PACU documented in this encounter Advance Directives Latest Code Status on File Code Status Date Activated Date Inactivated Comments Full Code 09/02/2008 3:34 PM 09/03/2008 3:24 PM This or boni reflects the patients wishes and were consensually agreed upon. Care Teams Security Messenger Relationship Specialty Start Date End Date Len Banda III, MD [address] [place] [address] PCP - General Family Medicine 02/04/18 documented as of this encounter
--- OUTSIDE RECORDS SUMMARY | 2023-04-12 22:16 | External Medical Summary | Summary of Care ---
Author Name Unknown Organization [facility] Address [address] [facility] [place] [address] Phone [phone] Care Team Providers Care Cloth Wire Weaver Name Role Phone Veronika GAVIN MD, Len Patino Primary Care Provider [phone] Reason for Visit * Reason Comments NEW [...] Marie [address] [place] [address] Elicia Graves PA-C [address] [place] [address] Inflamed seborrheic keratosis* Allergies Active Allergy Reactions Criticality Noted Date Comments Pollen Other (Please comment) 09/17/2022 Nasal congestion and drainage documented as of this encounter (statuses as of 03/02/2023) Medications Medication Sig Dispensed Refills Start Date [...] morning. 16 g 2 01/10/2022 Active Ipratropium [place] 0.03 % Nasal Solution (Atrovent) Administer 2 [...] severe pain. 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 Increased risk for Inherited Arrhythmias. Carotid stenosis, left 06/11/2013 Hyperlipidemia with target LDL less than 100 Overview: ICD-10 update of inactive term HTN, goal below 140/90 06/11/2013 documented as of this encounter (statuses as of 03/02/2023) Resolved Problems Problem Noted Date Diagnosed Date Resolved Date TIA (transient ischemic attack) 06/24/2013 11/25/2016 Other atopic dermatitis 01/15/201006/2018 Overview: ICD-10 update of inactive term Sleep apnea 09/02/2008 11/25/2016 Family history of ischemic heart disease 12/11/2007 11/25/2016 Family history of GI malignancy 12/11/2007 11/25/2016 documented as of this encounter (statuses as of 03/02/2023) Immunizations Name Administration Dates Next Due Pneumococcal [...] 02/28/2023 11:40 AM EST SUBJECTIVE: HPI: Kory Paulmbo is a 77 year old male seen [...] Skin disorders: None SOCIAL HISTORY: Retired - men's swim coach REVIEW OF SYSTEMS: SKIN: No other [...] in the morning. 16 g 2 Ipratropium [place] 0.03 % Nasal Solution (Atrovent) Administer 2 Sprays into each nostril 2 times a day as needed for Rhinitis. 90 mL 3 Cqomxhfcjo-Zwdvizc-Jokakpey 50-325-40 MG Oral Capsule Take 1 Capsule [...] questions or concerns. Elicia Graves PA-C 02/28/2023 documented in this encounter Nursing Notes * Vangie Timmons MED ASSIST - 02/28/2023 11:41 AM EST [...] Visit Family Practice [facility] [address] [place] [id number] Len Banda III, MD [address] [place] [address] Scheduled Procedures Name Priority Associated Diagnoses Date/Ti me COLONOSCOPY FLEXIBLE PROXIMA L DIAGNOSTIC Recall History of colon polyps Family history of colon cancer Health Maintenance Due Date Last Done Comments Depression Screening 11/08/2022 11/08/2021 COVID-19 Vaccine (2 - 2022-24 season) 2022 01/09/2022 DTaP,Tdap,and Td Vaccines (3 [...] and were consensually agreed upon. Care Teams Cloth Wire Weaver Relationship Specialty Start Date End Date Len Banda III, MD [address] [facility] [place] [address] PCP - General Family Medicine 02/04/18 documented as of this encounter
--- OUTSIDE RECORDS SUMMARY | 2023-04-12 22:16 | External Medical Summary | Summary of Care ---
Author Name Unknown Organization [facility] Address [address] [place] [address] Phone [phone] Care Team Providers Care Wax Molder Name Role Phone Veronika GAVIN MD, Len Patino Primary Care Provider [phone] Reason for Visit * Reason Onset Date Comments Surgery 01/27/2023 Encounter Details Date Type Department Care Team (Late st Contact Info) Description 01/27/2023 Telephone Otolaryngology/Head & Neck/Facial Plastic Surgery [address] [place] [address] Services, Scheduling [address] [place] [address] Surgery Allergies Active Allergy Reactions Criticality Noted Date Comments Pollen Other (Please comment) 09/17/2022 Nasal congestion and drainage documented as of this encounter (statuses as of 02/17/2023) Medications Medication Sig Dispensed Refills Start Date [...] morning. 16 g 2 01/10/2022 Active Ipratropium [place] 0.03 % Nasal Solution (Atrovent) Administer 2 Sprays into each nostril 2 times a day as needed for Rhinitis. 90 mL 3 08/12/2022 Active Additional Information Patient not taking.Reported on 11/20/2022 Butalbital-Aspirin- Caffeine 50-325-40 MG Oral Capsule Take [...] the morning. 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 Increased risk for Inherited Arrhythmias. Carotid stenosis, left 06/11/2013 Hyperlipidemia with target LDL less than 100 Overview: ICD-10 update of inactive term HTN, goal below 140/90 06/11/2013 documented as of this encounter (statuses as of 02/17/2023) Resolved Problems Problem Noted Date Diagnosed Date Resolved Date TIA (transient ischemic attack) 06/24/2013 11/25/2016 Other atopic dermatitis 01/15/201006/2018 Overview: ICD-10 update of inactive term Sleep apnea 09/02/2008 11/25/2016 Family history of ischemic heart disease 12/11/2007 11/25/2016 Family history of GI malignancy 12/11/2007 11/25/2016 documented as of this encounter (statuses as of 02/17/2023) Immunizations Name Administration Dates Next Due Pneumococcal [...] encounter Miscellaneous Notes * Telephone Encounter - Tracie Randolph, MEÑO - 02/17/2023 2:20 PM EST Called and offered patient March 2023, patient expressed he did not want to wait until the new year due to changing insurances. Will speak with Dr. Gomez and see if we can get himbefore * Telephone Encounter - Janette Riggs OSA - 02/14/2023 4:33 PM EST Pt called back asking for an update on surgery. Please contact pt [phone] * Telephone Encounter - Mar Coates OSA - 01/27/2023 10:13 AM EDT Pt ready to schedule surgery with Dr. Gomez for his polyps. Please call pt to schedule. documented in this encounter Plan of Treatment Upcoming Encounters Date Type Department Care Team (Late st Contact Info) Description 07/22/2023 1:00 PM EDT Office Visit Family Practice [facility] [address] [facility] [address] Len Banda III, MD [address] [facility] [place] [address] Scheduled Procedures Name Priority Associated Diagnoses Date/Ti me COLONOSCOPY FLEXIBLE PROXIMA L DIAGNOSTIC Recall History of colon polyps Family history of colon cancer Health Maintenance Due Date Last Done Comments Depression Screening 11/08/2022 11/08/2021 COVID-19 Vaccine ( - season) 2022 01/09/2022 DTaP,Tdap,and Td Vaccines (3 [...] and were consensually agreed upon. Care Teams Wax Molder Relationship Specialty Start Date End Date Len Banda III, MD [address] [facility] [place], [place] [address] PCP - General Family Medicine 02/04/18 documented as of this encounter
--- OUTSIDE RECORDS SUMMARY | 2023-04-12 22:16 | External Medical Summary | Summary of Care ---
Author Name Unknown Organization [facility] Address [address] [facility] [address] Phone [phone] Care Team Providers Care Recreation Program Specialist Name Role Phone Veronika GAVIN MD, Laila Patino Primary Care Provider [phone] Reason for Visit * Reason Comments eRx-Medication Refill Encounter Details Date Type Department Care Team Description 01/09/2023 [facility] [place] [address] [facility] [place] [address] Laila Cordero III, MD [address] [facility] [place] [address] Allergies Active Allergy Reactions Severity Noted Date Comments Pollen Other (Please comment) 09/17/2022 Nasal congestion and drainage documented as of this encounter (statuses as of 01/10/2023) Medications Medication Sig Dispensed Refills Start Date [...] the morning. 16 g 2 01/10/2022 Active hydroCHLOROthiazi de 25 MG Oral Tablet (Hydrodiuril)Shara cations:HTN, goal below 140/90 Take by mouth 1 Tablet in the morning. 90 Tablet 2 01/21/2022 Active Ipratropium [place] 0.03 % Nasal Solution (Atrovent) Administer 2 [...] 09/24/2022 Active Carvedilol 12.5 MG Oral Tablet (Coreg)Indication s:HTN, goal below 140/90 Take 0.5 Tablets by mouth in the morning and 0.5 Tablets before bedtime. With food. 60 Tablet 11 09/24/2022 Active Additional Information Patient not taking.Reported on 11/20/2022 Atorvastatin Calcium 40 MG Oral Tablet (Lipitor)Indicati ons:HTN, goal below 140/90,Carotid stenosis, left,Hyperlipidem ia with target low density lipoprotein (LDL) cholesterol less than 100 mg/dL TAKE 1 TABLET BY MOUTH EVERY DAY IN THE MORNING 90 Tablet 3 10/07/2022 Active Ezetimibe 10 MG Oral Tablet (Zetia) Take 1 Tablet by mouth in the morning. 90 Tablet 0 10/18/2022 01/17/20 Active Candesartan Cilexetil 32 MG Oral Tablet (Atacand) TAKE 1 TABLET BY MOUTH EVERY DAY IN THE MORNING 30 Tablet 5 01/10/2023 Active Candesartan Cilexetil 32 MG Oral Tablet (Atacand) TAKE 1 TABLET BY MOUTH EVERY DAY IN THE MORNING 90 Tablet 0 08/17/2022 01/11/20 Discontinued documented as of this encounter (statuses as of 01/10/2023) Active Problems Problem Noted Date Monoallelic mutation of SCN5A gene 01/26 Overview: pathogenic SCN5A gene variant (c.3988G>A, p.[id number]) detected via [employer]. Increased risk for Inherited Arrhythmias. Carotid stenosis, left 06/11/2013 Hyperlipidemia with target LDL less than 100 06/11/2013 Overview: ICD-10 update of inactive term HTN, goal below 140/90 06/11/2013 documented as of this encounter (statuses as of 01/10/2023) Resolved Problems Problem Noted Date Resolved Date TIA (transient ischemic attack) 06/24/2013 11/25/2016 Other atopic dermatitis 01/15/2010 12/03/19 19 Overview: ICD-10 update of inactive term Sleep apnea 09/02/2008 11/25/2016 Family history of ischemic heart disease 008 11/25/2016 Family history of GI malignancy 12/11/2007 11/25/2016 documented as of this encounter (statuses as of 01/10/2023) Immunizations Name Administration Dates Next Due Pneumococcal Conjugate Vacc, 13 Valent (Prevnar) 01/31/2015 Pneumococcal Polysaccharide PPV23 (Pneumovax) SEASONAL INFLUENZA, PF, 6 M & Above, IM , (FLULAVAL or FLUZONE) 12/02/2018,04/21/2017 Seasonal Influenza, Quadrivalent Hd (Fluzone Hd) [...] encounter Miscellaneous Notes * Telephone Encounter - Michelle Bear RPh - 01/10/2023 6:39 AM EDTSigned Prescriptions: Disp Refills Candesartan Cilexetil 32 MG Oral Tablet (A*30 Tab*5 Sig: TAKE 1 TABLET BY MOUTH EVERY DAY IN THE MORNINGAuthorizing Provider: LAILA CORDERO III User: MICHELLE BEAR documented in this encounter Plan of Treatment Upcoming Encounters Date Type Specialty Care Team Description 01/15/2023 Office Visit Family Medicine Laila Cordero III, MD [address] [place] [address] Scheduled Procedures Name Priority Associated Diagnoses Date/Ti me COLONOSCOPY FLEXIBLE PROXIMA L DIAGNOSTIC Recall History of colon polyps Family history of colon cancer Health Maintenance Due Date Last Done Comments Depression Screening 11/08/2022 11/08/2021 *NEPHROLOGY REFERRAL DUE TO RESISTANT HTN 11/22/2022 COVID-19 Vaccine ( - season) 2022 01/09/2022 Influenza Vaccine (FLU shot) (#1) 2022 12/28/2021, 03/22/2021, 12/02/2018, Additional history exists DTaP,Tdap,and Td Vaccines (3 - Td or Tdap) 02/27/2023 02/27/2013, 01/06/2008 COLONOSCOPY-EVERY 5 YRS AGES 18-100 08/27/2023 08/26/2018, 08/26/2018, 02/05/2013, Additional history exists GFR 09/19/2023 09/18/2022, 10/29, 01/27/2019, Additional history exists Albumin/Creatinine Ratio 12/28/2024 12/28/2021 Pneumococcal Vaccine: 65+ Years Completed 11/25/2016, 01/31/2015 Zoster Vaccines Completed 05/18/2019, 12/31, 03/12/2013 GARDASIL-HPV IMMUNIZATION SERIES Aged Out No longer [...] and were consensually agreed upon. Care Teams Recreation Program Specialist Relationship Specialty Start Date End Date Laila Cordero III, MD [address] [facility] [place] [address] PCP - General Family Medicine 02/04/18 documented as of this encounter
--- OUTSIDE RECORDS SUMMARY | 2023-04-12 22:16 | External Medical Summary | Summary of Care ---
Author Name Unknown Organization [facility] Address [address] [place] [address] Phone [phone] Care Team Providers Care Instrument Assembler Name Role Phone Veronika GAVIN MD, Len Patino Primary Care Provider [phone] Reason for Visit * Reason Onset Date Comments Update 03/06/2023 Having a little bloody drainage a few times a day usually after being inside and going outside Encounter Details Date Type Department Care Team (Late st Contact Info) Description 03/06/2023 Telephone Otolaryngology/Head & Neck/Facial Plastic Surgery [address] [place] [address] Nicholas Gomez MD [address] [place] [address] Update (Having a little bloody drainage a ... Allergies Active Allergy Reactions Criticality Noted Date Comments Pollen Other (Please comment) 09/17/2022 Nasal congestion and drainage documented as of this encounter (statuses as of 03/07/2023) Medications Medication Sig Dispensed Refills Start Date End Date Status betamethasone dipropionate (DIPROSONE) 0.05 % creamIndications:Oth er atopic dermatitis and related conditions Apply topically to affected area 2 times a day. To affected area. 45 g 3 11/25/2016 Active amLODIPine Besylate 10 MG Oral Tablet (Norvasc) TAKE 1 TABLET BY MOUTH EVERY DAY 90 Tablet 2 07/10/2021 Active Fluticasone Propionate 50 MCG/ACT Nasal Suspension (Flonase)Indications :Seasonal allergic rhinitis due to pollen Administer into each nostril 2 Sprays in the morning. 16 g 2 01/10/2022 Active Ipratropium [place] 0.03 % Nasal Solution (Atrovent) Administer 2 Sprays into each nostril 2 times a day as needed for Rhinitis. 90 mL 3 08/12/2022 Active Hkzwejpoxi-Hsggutj-G affeine 50-325-40 MG Oral Capsule Take 1 Capsule by mouth every 4 hours as needed for Pain, Moderate. 30 Capsule 0 09/24/2022 Active traMADol HCl 50 MG Oral Tablet (Ultram) Take 1 Tablet by mouth every 8 hours as needed for Pain, Moderate. 30 Tablet 0 09/24/2022 Active Atorvastatin Calcium 40 MG Oral Tablet (Lipitor)Indications :HTN, goal below 140/90,Carotid stenosis, left,Hyperlipidemia with target low density lipoprotein (LDL) cholesterol less than 100 mg/dL TAKE 1 TABLET BY MOUTH EVERY DAY IN THE MORNING 90 Tablet 3 10/07/2022 Active Meclizine HCl 25 MG Oral Tablet (Antivert)Indication s:Benign paroxysmal vertigo of right ear Take 1 Tablet by mouth 3 times a day as needed for Dizziness. 30 Tablet 1 01/15/2023 Active Candesartan Cilexetil 32 MG Oral Tablet (Atacand)Indications :HTN, goal below 140/90 Take 1 Tablet by mouth in the morning. 90 Tablet 5 01/15/2023 Active hydroCHLOROthiazide 25 MG Oral Tablet (Hydrodiuril)Indicat ions:HTN, goal below 140/90 Take 1 Tablet by mouth in the morning. 90 Tablet 3 01/15/2023 Active oxyCODONE HCl 5 MG Oral Tablet (Oxy IR) Take 1 Tablet by mouth every 4 hours as needed for severe pain. 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 Increased risk for Inherited Arrhythmias. Carotid stenosis, left 06/11/2013 Hyperlipidemia with target LDL less than 100 Overview: ICD-10 update of inactive term HTN, goal below 140/90 06/11/2013 documented as of this encounter (statuses as of 03/07/2023) Resolved Problems Problem Noted Date Diagnosed Date Resolved Date TIA (transient ischemic attack) 06/24/2013 11/25/2016 Other atopic dermatitis 01/15/201006/2018 Overview: ICD-10 update of inactive term Sleep apnea 09/02/2008 11/25/2016 Family history of ischemic heart disease 12/11/2007 11/25/2016 Family history of GI malignancy 12/11/2007 11/25/2016 documented as of this encounter (statuses as of 03/07/2023) Immunizations Name Administration Dates Next Due Pneumococcal [...] Miscellaneous Notes * Telephone Encounter - Tracie Randolph OSA - 03/07/2023 10:[address] Gomez spoke with patient * Telephone Encounter - Mey Castro OSA - 03/06/2023 11:38 AM EST Patient calling asking about still having blood tinged mucous s/p sinus surgery a week ago [phone] documented in this encounter Plan of Treatment Upcoming Encounters Date Type Department Care Team (Late st Contact Info) Description 07/22/2023 1:00 PM EDT [facility] [address] [facility] [place] [address] Len Banda III, MD [address] [facility] [place] [address] Scheduled Procedures Name Priority Associated Diagnoses Date/Ti [...] and were consensually agreed upon. Care Teams Instrument Assembler Relationship Specialty Start Date End Date Len Banda III, MD [address] [facility] [place] [address] PCP - General Family Medicine 02/04/18 documented as of this encounter
--- NOTE | 2023-04-12 22:26 | Emergency Department Note ---
History of Present Illness General Chief complaint: Syncope Time Seen by Provider: 04/12/23 22:15 History of Present Illness This 77-year-old male presents the ER for a syncopal episode. Patient was at the bar drinking wine when he felt lightheaded and collapsed. Patient states he still feels slightly lightheaded now. He states he only had a couple glasses of wine today. He occasionally smokes marijuana. Patient denies chest pain, dyspnea, headache, neck pain, abdominal pain, numbness, tingling, localized weakness. Patient states he has passed out before with unclear etiology. Home Medications Medication Instructions Recorded Confirmed Type atorvastatin 40 mg tablet 40 mg PO QAM 11/08/19 04/12/23 History candesartan 32 mg tablet 32 mg PO QAM 11/08/19 04/12/23 History fluticasone propionate 50 2 spray intranasal QAM 11/16/21 04/12/23 History mcg/actuation nasal spray,suspension amlodipine 10 mg tablet 10 mg PO DAILY 11/17/21 04/12/23 History hydrochlorothiazide 25 mg tablet 25 mg PO DAILY 09/17/22 04/12/23 History meclizine 25 mg tablet 25 mg PO TID PRN Dizziness 09/17/22 04/12/23 History betamethasone dipropionate 0.05 % 1 applic topical BID PRN Skin 04/12/23 04/12/23 History topical cream Irritation ezetimibe 10 mg tablet 10 mg PO QAM 04/12/23 04/12/23 History ipratropium bromide 21 mcg (0.03 2 spray intranasal BID PRN RHINITIS 04/12/23 04/12/23 History %) nasal spray oxycodone 5 mg tablet 5 mg PO Q4H PRN Pain 04/12/23 04/12/23 History tramadol 50 mg tablet 25 mg PO Q8H PRN Pain 04/12/23 04/12/23 History Allergies Allergy/AdvReac Type Severity Reaction Status Date / Time pollen extracts Allergy Intermediate NASAL Verified 04/12/23 23:08 CONGESTION & DRAINAGE Past Med/Surg History Medical History Lab test negative for COVID-19 virus Vertigo Dizziness Carotid stenosis Left > right side History of kidney stones Hyperlipidemia Hypertension Surgical History History of arthroscopy of left shoulder History of colonoscopy 2018 History of appendectomy History of tonsillectomy Family History Other Heart disease Social History Smoking Status: Former smoker Second Hand Exposure: No; Do You Dip or Chew Tobacco: No; Hx Alcohol Use: Yes Alcohol type: hard liquor Hx Substance Use: Yes Last Used Substance: Days (ago) Last Used Substance Other:: a couple days ago Preferred Language: Welsh Communication Ability: Effective Engraver Pantograph Required: No Beliefs That Will Affect Care: None Current Living Situation: Spouse Current Living Situation Comment: Feels Safe at Home: Yes Assistive Devices: Glasses Review of Systems A total of 10 systems reviewed and were otherwise negative Physical Exam Vital Signs Vital Signs - 24 hr 04/12/23 22:15 04/12/23 22:15 04/12/23 22:15 Temperature Temperature Source Pulse Rate - Lying Pulse Rate - Sitting Pulse Rate - Standing Pulse Rate 54 L 64 Pulse Rate from SpO2 Sensor Respiratory Rate Respiratory Effort / Characteristics Respiratory Depth Respiratory Pattern Blood Pressure - Lying Blood Pressure - Sitting Blood Pressure- Standing Blood Pressure 129/69 Blood Pressure Mean 102 Pulse Oximetry Oxygen Delivery Method Sepsis Recent Fever Within 48 Hours Sepsis New/Unexplained Change in Mental Status Sepsis Action Taken by Nursing 04/12/23 22:15 04/12/23 22:17 04/12/23 22:28 Temperature 36.4 C L Temperature Source Oral Pulse Rate - Lying Pulse Rate - Sitting Pulse Rate - Standing Pulse Rate 60 Pulse Rate from SpO2 Sensor Respiratory Rate 17 Respiratory Effort / Characteristics Non-Labored Spontaneous Respiratory Depth Normal Respiratory Pattern Regular Blood Pressure - Lying Blood Pressure - Sitting Blood Pressure- Standing Blood Pressure 129/69 129/69 Blood Pressure Mean 102 89 Pulse Oximetry 92 Oxygen Delivery Method Room Air Room Air Sepsis Recent Fever Within 48 Hours No Sepsis New/Unexplained Change in Mental Status No Sepsis Action Taken by Nursing No Action Required 04/12/23 22:30 04/12/23 22:42 04/12/23 22:42 Temperature Temperature Source Pulse Rate - Lying Pulse Rate - Sitting Pulse Rate - Standing Pulse Rate 58 L 56 L Pulse Rate from SpO2 Sensor 57 L Respiratory Rate 19 14 Respiratory Effort / Characteristics Respiratory Depth Respiratory Pattern Blood Pressure - Lying Blood Pressure - Sitting Blood Pressure- Standing Blood Pressure 104/38 L Blood Pressure Mean 73 Pulse Oximetry 92 Oxygen Delivery Method Sepsis Recent Fever Within 48 Hours Sepsis New/Unexplained Change in Mental Status Sepsis Action Taken by Nursing 04/12/23 22:43 04/12/23 22:44 04/12/23 22:45 Temperature Temperature Source Pulse Rate - Lying Pulse Rate - Sitting Pulse Rate - Standing Pulse Rate 62 Pulse Rate from SpO2 Sensor 60 Respiratory Rate 16 17 Respiratory Effort / Characteristics Respiratory Depth Respiratory Pattern Blood Pressure - Lying Blood Pressure - Sitting Blood Pressure- Standing Blood Pressure 92/61 L Blood Pressure Mean 71 Pulse Oximetry 95 Oxygen Delivery Method Sepsis Recent Fever Within 48 Hours Sepsis New/Unexplained Change in Mental Status Sepsis Action Taken by Nursing 04/12/23 22:45 04/12/23 22:45 04/12/23 22:47 Temperature Temperature Source Pulse Rate - Lying 56 L Pulse Rate - Sitting 58 L Pulse Rate - Standing 62 Pulse Rate Pulse Rate from SpO2 Sensor Respiratory Rate Respiratory Effort / Characteristics Respiratory Depth Respiratory Pattern Blood Pressure - Lying 104/38 L Blood Pressure - Sitting 92/61 L Blood Pressure- Standing 90/53 L Blood Pressure 104/58 L 104/58 L Blood Pressure Mean 89 89 Pulse Oximetry Oxygen Delivery Method Sepsis Recent Fever Within 48 Hours Sepsis New/Unexplained Change in Mental Status Sepsis Action Taken by Nursing 04/12/23 23:20 04/12/23 23:20 04/12/23 23:30 Temperature Temperature Source Pulse Rate - Lying Pulse Rate - Sitting Pulse Rate - Standing Pulse Rate 55 L 54 L Pulse Rate from SpO2 Sensor 54 L Respiratory Rate 16 17 Respiratory Effort / Characteristics Respiratory Depth Respiratory Pattern Blood Pressure - Lying Blood Pressure - Sitting Blood Pressure- Standing Blood Pressure 97/62 L Blood Pressure Mean 70 Pulse Oximetry 95 Oxygen Delivery Method Sepsis Recent Fever Within 48 Hours Sepsis New/Unexplained Change in Mental Status Sepsis Action Taken by Nursing 04/12/23 23:30 04/13/23 00:00 04/13/23 00:00 Temperature Temperature Source Pulse Rate - Lying Pulse Rate - Sitting Pulse Rate - Standing Pulse Rate 54 L Pulse Rate from SpO2 Sensor 54 L Respiratory Rate 15 Respiratory Effort / Characteristics Respiratory Depth Respiratory Pattern Blood Pressure - Lying Blood Pressure - Sitting Blood Pressure- Standing Blood Pressure 101/70 109/60 Blood Pressure Mean 83 79 Pulse Oximetry 97 Oxygen Delivery Method Sepsis Recent Fever Within 48 Hours Sepsis New/Unexplained Change in Mental Status Sepsis Action Taken by Nursing 04/13/23 00:30 04/13/23 00:30 Temperature Temperature Source Pulse Rate - Lying Pulse Rate - Sitting Pulse Rate - Standing Pulse Rate 57 L Pulse Rate from SpO2 Sensor 57 L Respiratory Rate 17 Respiratory Effort / Characteristics Respiratory Depth Respiratory Pattern Blood Pressure - Lying Blood Pressure - Sitting Blood Pressure- Standing Blood Pressure 121/68 Blood Pressure Mean 100 Pulse Oximetry 90 Oxygen Delivery Method Sepsis Recent Fever Within 48 Hours Sepsis New/Unexplained Change in Mental Status Sepsis Action Taken by Nursing VITALS: Vitals are noted on the nurse's note and reviewed by myself. Vital signs stable. GENERAL: Pleasant male, in no acute distress, nondiaphoretic, well-developed well-nourished. SKIN: Capillary reflex less than 2 seconds. HEENT: Normocephalic. PERRLA. EOMI. Nares patent. Mucous membranes moist. Neck is supple without nuchal rigidity. No C-spine tenderness. HEART: Regular rate and rhythm LUNGS: Clear to auscultation bilaterally without wheezes, rales or rhonchi. No retractions or accessory muscle use. ABDOMEN: Positive bowel sounds x 4. Normal tympanic percussion. Soft, nontender, without masses or organomegaly. Mazariegos sign negative. No guarding or rebound tenderness. MUSCULOSKELETAL: No gross musculoskeletal defects. NEURO: Patient was alert and oriented to person place and time. Cranial nerves II through XII grossly intact. No pronator drift. Cerebellar exam intact. No focal neurological deficits. Course Administered Medications Potassium Chloride 20 meq/ (Lactated Ringer's) 1,010 mls @ 80 mls/hr IV .[id number] ONE Stop: 04/13/23 14:22 Last Admin: 04/13/23 02:14 Dose: 80 mls/hr Documented By: GINNY Discontinued Medications Sodium Chloride (Nss) 500 mls @ 999 mls/hr IV .Q31M GOLD Stop: 04/12/23 23:00 Last Infusion: 04/13/23 01:18 Dose: Infused Documented By: Admin: 04/12/23 23:21 Dose: 999 mls/hr Documented By: GINNY Thiamine HCl 100 mg/ Syringe 10 mls @ 2 mls/min IV NOW STA Stop: 04/13/23 01:50 Last Admin: 04/13/23 02:14 Dose: 2 mls/min Documented By: GINNY Potassium Chloride (Potassium Chloride Crtab 20 Meq Tabcr) 40 meq PO NOW STA Stop: 04/13/23 01:39 Last Admin: 04/13/23 02:16 Dose: 40 meq Documented By: GINNY Medical Decision Making Medical Records Attestation: I reviewed the patient's medical records. Home Medications Current Medication List: was personally reviewed by me Laboratory Data Attestation: I reviewed the patient's lab results. 04/12/23 22:44 04/12/23 22:44 Lab Results 04/12/23 04/12/23 Range/Units 22:26 22:44 WBC 9.42 (4.8-10.8) K/ul RBC 5.08 (4.70-6.10) M/uL Hgb 14.8 (14.0-18.0) g/dl Hct 46.0 (42.0-52.0) % MCV 90.6 (80.0-100.0) fL MCH 29.1 (25.0-34.0) pg MCHC 32.2 (32.0-36.0) g/dL RDW Std Deviation 41.3 (36.4-46.3) fL RDW Coeff of Nicolás 12.5 (11.5-14.5) % Plt Count 240 (130-400) K/uL MPV 9.8 (9.4-12.4) fL Immature Gran % (Auto) 0.4 % Neut % (Auto) 66.0 % Lymph % (Auto) 23.8 % Stearns % (Auto) 5.2 % Eos % (Auto) 3.9 % Baso % (Auto) 0.7 % Neut # (Auto) 6.21 (1.40-6.50) K/uL Lymph # (Auto) 2.24 (1.20-3.40) K/uL Stearns # (Auto) 0.49 (0.11-0.59) K/uL Eos # (Auto) 0.37 (0.00-0.50) K/uL Baso # (Auto) 0.07 (0.00-0.20) K/uL Immature Gran # (Auto) 0.04 (0.01-0.20) K/uL Sodium 140 (136-145) mmol/L Potassium 3.4 L (3.5-5.1) mmol/L Chloride 105 (98-107) mmol/L Carbon Dioxide 25 (21-32) mmol/L Anion Gap 10 (3-11) BUN 28 H (6-23) mg/dl Creatinine 1.14 (0.6-1.4) mg/dl Est Cr Clr Drug Dosing 54.2 ml/min Est GFR ( Amer) 72.5 ml/min Est GFR (Non-Af Amer) 62.6 ml/min BUN/Creatinine Ratio 24.6 H (10-20) Glucose 141 H (70-99(Fasting)) mg/dl POC Glucose 161 H (70-99) mg/dl Calcium 9.4 (8.6-10.3) mg/dl Magnesium 2.2 (1.7-2.4) mg/dl Total Bilirubin 0.7 (0.2-1.0) mg/dl AST 17 (13-39) U/L ALT 17 (7-52) U/L Alkaline Phosphatase 82 (34-104) U/L Total Creatine Kinase 120 (30-223) U/L Troponin I High Sens 6.2 (0-20) pg/ml Total Protein 7.4 (6.0-8.3) gm/dl Albumin 4.5 (3.4-5.0) gm/dl Globulin 2.9 (2.5-4.0) gm/dl Albumin/Globulin Ratio 1.6 (0.9-2) TSH 3.889 (0.300-4.500) uIu/ml Ethyl Alcohol mg/dL 13.7 H (<10.0) mg/dl Imaging Data Attestation: I personally reviewed and interpreted this imaging study as follows: Radiologist's Impression: Cervical Spine CT 04/12/23 22:23 Exam(s): CT C SPINE EXAM: CT Cervical Spine Without Intravenous Contrast CLINICAL HISTORY: Reason for exam: HI. TECHNIQUE: Axial computed tomography images of the cervical spine without intravenous contrast. CTDI is 25.13 mGy and DLP is 606.66 mGy-cm. Automated exposure control was utilized for the study. A dose lowering technique was utilized adhering to the principles of ALARA. COMPARISON: No relevant prior studies available. FINDINGS: Vertebrae: No acute fracture. No malalignment. 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 Soft tissues: Unremarkable. IMPRESSION: No fracture within the cervical spine. Electronically signed by: Gelacio Weber MD 04/13/23 01:[address] 04/12/23 22:23 Exam(s): CT HEAD Without Contrast EXAM: CT Head Without Intravenous Contrast CLINICAL HISTORY: Reason for exam: syncope. TECHNIQUE: Axial computed tomography images of the head/brain without intravenous contrast. CTDI is 36.05 mGy and DLP is 624.41 mGy-cm. Automated exposure control was utilized for the study. A dose lowering technique was utilized adhering to the principles of ALARA. COMPARISON: No relevant prior studies available. FINDINGS: Brain: No hemorrhage, extra-axial fluid collection, mass effect, or edema. Ventricles: Unremarkable. Bones/joints: Unremarkable. No fracture. Soft tissues: Unremarkable. Sinuses: Multifocal paranasal sinus disease/sinusitis. Mastoid air cells: Unremarkable as visualized. IMPRESSION: 1. No acute intracranial abnormality. 2. Multifocal paranasal sinus disease/sinusitis. Electronically signed by: Gelacio Weber MD 04/12/23 23:30 PM MDM Narrative Prior records/ancillary studies reviewed. Triage Nursing notes reviewed. Additional history obtained from nursing. The patient's history was concerning for syncope. Differential diagnosis: Etiologies such as vasovagal event, infection, hypoglycemia, electrolyte abnormalities, cardiac sources, intracerebral event, toxicologic, neurologic, as well as others were entertained. Physical examination: As above ER treatment provided: IV hydration with normal saline On reassessment the patient felt better. An order was placed for continuous cardiac monitoring. The monitor shows a rate of 50-100 with a sinus rhythm per my interpretation. Diagnostics interpretation by me: ECG: ordered for syncope ECG: Normal sinus, first-degree AV block, no acute ST-T wave changes, rate of 53. Impression sinus bradycardia with a first-degree AV block independently interpreted by myself The labs Independently Interpreted by myself revealed negative troponin. Mild hyperglycemia without DKA. Euthyroid Imaging studies: Head CT negative for intracranial bleed per my independent interpretation and report was reviewed as above CT of the cervical spine was reviewed by myself and read by radiology as above Consultation: A consultation was placed with the hospitalist. The case was discussed and diagnostics were reviewed. The patient was evaluated in the ER for further treatment. This appears to be consistent with syncope with unclear etiology. Negative imaging. Stable labs. No dysrhythmia. Patient was reassessed multiple times. Medicine was consulted and case was discussed. Patient be admitted to the medical service for further evaluation and workup. By the evaluation outlined above emergent etiologies such as infection, hypoglycemia, electrolyte abnormalities, toxicologic, as well as others were deemed relatively unlikely. The pt informed about the findings as listed above. All questions were answered and pleased with the treatment. The chart was completed utilizing [employer] Speech voice recognition software. Grammatical errors, random word insertions, pronoun errors, and incomplete sentences are an occassional consequence of this system due to software limitations, ambient noise, and hardware issues. Any formal questions or concerns about the content, text, or information contained within the body of this dictation should be directly addressed to the physician printer assistant for clarification. Impression & Plan Syncope Discharge Plan Visit Data Chief Complaint: Syncope ED Provider: Len Tirado ED Midlevel Provider: Jeni Thorne Discharge Problem: Syncope Patient Disposition: Admitted As Inpatient Condition: Good Forms Stand Alone Forms: Pending Sale To [facility] Prescriptions Prescriptions: No Action atorvastatin 40 mg Tablet 40 mg PO QAM candesartan 32 mg Tablet 32 mg PO QAM fluticasone propionate 50 mcg/actuation spray,suspension 2 spray INTRANASAL QAM amlodipine 10 mg tablet 10 mg PO DAILY betamethasone dipropionate 0.05 % Cream 1 applic TOPICAL BID PRN (Reason: Skin Irritation) ipratropium bromide 21 mcg (0.03 %) spray,non-aerosol 2 spray INTRANASAL BID PRN (Reason: RHINITIS) oxycodone 5 mg Tablet 5 mg PO Q4H PRN (Reason: Pain) ezetimibe 10 mg tablet 10 mg PO QAM tramadol 50 mg tablet 25 mg PO Q8H PRN (Reason: Pain) meclizine 25 mg tablet 25 mg PO TID PRN (Reason: Dizziness) hydrochlorothiazide 25 mg tablet 25 mg PO DAILY Referrals Referrals: Len Banda MD [Primary Care Provider] - Discharge Problem: Syncope Qualifiers: Syncope type: unspecified Qualified Code(s): R55 - Syncope and collapse
[2023-04-12] MEDS ORDERED: SODIUM CHLORIDE 0.9% 500 ML IV SCH (22:30)
[2023-04-12 23:21] LABS: Basophils # (auto) 0.07 K/uL (0.00-0.20); Basophils % (auto) 0.7 %; Eosinophils # (auto) 0.37 K/uL (0.00-0.50); Eosinophils % (auto) 3.9 %; Hemoglobin 14.8 g/dl (14.0-18.0); Immature Granulocytes # (auto) 0.04 K/uL (0.01-0.20); Immature Granulocytes % (auto) 0.4 %; Lymphocytes # (auto) 2.24 K/uL (1.20-3.40); Lymphocytes % (auto) 23.8 %; Mean Corpuscular Hemoglobin 29.1 pg (25.0-34.0); Mean Corpuscular Hgb Conc 32.2 g/dL (32.0-36.0); Mean Corpuscular Volume 90.6 fL (80.0-100.0); Mean Platelet Volume 9.8 fL (9.4-12.4); Monocytes # (auto) 0.49 K/uL (0.11-0.59); Monocytes % (auto) 5.2 %; Neutrophils # (auto) 6.21 K/uL (1.40-6.50); Platelet Count 240 K/uL (130-400); RDW Coefficient of Variation 12.5 % (11.5-14.5); RDW Standard Deviation 41.3 fL (36.4-46.3); Red Blood Count 5.08 M/uL (4.70-6.10); White Blood Count 9.42 K/ul (4.8-10.8)
--- NOTE | 2023-04-12 23:31 | CT Scan Report ---
Exam(s): CT HEAD Without Contrast EXAM: CT Head Without Intravenous Contrast CLINICAL HISTORY: Reason for exam: syncope. TECHNIQUE: Axial computed tomography images of the head/brain without intravenous contrast. CTDI is 36.05 mGy and DLP is 624.41 mGy-cm. Automated exposure control was utilized for the study. A dose lowering technique was utilized adhering to the principles of ALARA. COMPARISON: No relevant prior studies available. FINDINGS: Brain: No hemorrhage, extra-axial fluid collection, mass effect, or edema. Ventricles: Unremarkable. Bones/joints: Unremarkable. No fracture. Soft tissues: Unremarkable. Sinuses: Multifocal paranasal sinus disease/sinusitis. Mastoid air cells: Unremarkable as visualized. IMPRESSION: 1. No acute intracranial abnormality. 2. Multifocal paranasal sinus disease/sinusitis. Electronically signed by: Gelacio Weber MD 04/12/23 23:30 PM
[2023-04-12 23:39] LABS: Albumin Globulin Ratio 1.6 (0.9-2); Albumin Level 4.5 gm/dl (3.4-5.0); BUN Creatinine Ratio 24.6 (10-20); Bilirubin,Total 0.7 mg/dl (0.2-1.0); Calcium 9.4 mg/dl (8.6-10.3); Creatinine Clr Calc Pharmacy 54.2 ml/min; Est GFR (African American) 72.5 ml/min; Est GFR (Non-African American) 62.6 ml/min; Globulin 2.9 gm/dl (2.5-4.0); Magnesium 2.2 mg/dl (1.7-2.4); Potassium 3.4 mmol/L (3.5-5.1); Total Protein 7.4 gm/dl (6.0-8.3)
[2023-04-12 23:45] LABS: Troponin I High Sensitivity 6.2 pg/ml (0-20)
[2023-04-12 23:54] LABS: Thyroid Stimulating Hormone 3.889 uIu/ml (0.300-4.500)
[2023-04-13] MEDS ORDERED: POTASSIUM CHLORIDE CRTAB 20 MEQ TABCR PO STA (01:38)
--- NOTE | 2023-04-13 01:44 | CT Scan Report ---
Exam(s): CT C SPINE EXAM: CT Cervical Spine Without Intravenous Contrast CLINICAL HISTORY: Reason for exam: HI. TECHNIQUE: Axial computed tomography images of the cervical spine without intravenous contrast. CTDI is 25.13 mGy and DLP is 606.66 mGy-cm. Automated exposure control was utilized for the study. A dose lowering technique was utilized adhering to the principles of ALARA. COMPARISON: No relevant prior studies available. FINDINGS: Vertebrae: No acute fracture. No malalignment. 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 Soft tissues: Unremarkable. IMPRESSION: No fracture within the cervical spine. Electronically signed by: Gelacio Weber MD 04/13/23 01:43 AM
[2023-04-13] MEDS ORDERED: POTASSIUM CHLORIDE 20 MEQ in LACTATED RINGER'S 1,000 ML IV ONE (01:45)
[2023-04-13] MEDS ORDERED: THIAMINE HCL 100 MG in SYRINGE 9 ML IV STA (01:46)
[2023-04-13 02:31] LABS: Appearance Urine Clear (Clear); Bilirubin Urine Negative (Negative); Blood Urine Negative (Negative); Color Urine Yellow; Glucose Urine UA Negative (Negative); Ketones Urine Trace (Negative); Leukocyte Esterase Urine Negative (Negative); Nitrite Urine Negative (Negative); Protein Urine Negative (Negative); Specific Gravity Urine 1.024 (1.000-1.030); Urobilinogen Urine Negative (Negative)
--- NOTE | 2023-04-13 02:49 | History & Physical Report ---
Date of Service April 13, 2023 Assessment & Plan (1) Syncope: Plan: Likely secondary to orthostasis given documented low BP at the ER. HTN, BP on the lower side hyperlipidemia, on statin Rx chronic bradycardia, chronic heart rate in the 50s. hx TIA PVD status post surgery Hypokalemia secondary to home diuretic Rx OBS Medical telemetry IVF, hold amlodipine and HCTZ for now Continue candesartan with hold parameters. Check TTE Replace potassium DVT prophylaxis. Lovenox subcu Full code Text document was generated using [employer] voice recognition software. It may contain grammatical or spelling errors. Kindly contact undersigned for clarification of any documentation item in question. History of Present Illness Chief Complaint: Syncope Primary Care Provider: Len Banda MD History obtained from patient and records. Medical history significant for HTN, hyperlipidemia, chronic bradycardia, TIA, PVD status post surgery, MEÑO status post surgery not on CPAP. Last confinement August 2022 for dizziness secondary to hypertensive urgency. Patient was at a local bar when he felt lightheaded upon standing up. Transient weakness syncopal event. No witnessed seizures or incontinence. No headache, no chest pain, no SOB. Has happened before at the same bar as per patient. Lowest SBP of 90s documented at the ER. 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, retired gymnastics teacher Allergies Allergy/AdvReac Type Severity Reaction Status Date / Time pollen extracts Allergy Intermediate NASAL Verified 04/12/23 23:08 CONGESTION & DRAINAGE Home Medications Medication Instructions Recorded Confirmed Type atorvastatin 40 mg tablet 40 mg PO QAM 11/08/19 04/12/23 History candesartan 32 mg tablet 32 mg PO QAM 11/08/19 04/12/23 History fluticasone propionate 50 2 spray intranasal QAM 11/16/21 04/12/23 History mcg/actuation nasal spray,suspension amlodipine 10 mg tablet 10 mg PO DAILY 11/17/21 04/12/23 History hydrochlorothiazide 25 mg tablet 25 mg PO DAILY 09/17/22 04/12/23 History meclizine 25 mg tablet 25 mg PO TID PRN Dizziness 09/17/22 04/12/23 History betamethasone dipropionate 0.05 % 1 applic topical BID PRN Skin 04/12/23 04/12/23 History topical cream Irritation ezetimibe 10 mg tablet 10 mg PO QAM 04/12/23 04/12/23 History ipratropium bromide 21 mcg (0.03 2 spray intranasal BID PRN RHINITIS 04/12/23 04/12/23 History %) nasal spray oxycodone 5 mg tablet 5 mg PO Q4H PRN Pain 04/12/23 04/12/23 History tramadol 50 mg tablet 25 mg PO Q8H PRN Pain 04/12/23 04/12/23 History Past Med/Surg History Medical History Lab test negative for COVID-19 virus Vertigo Dizziness Carotid stenosis Left > right side History of kidney stones Hyperlipidemia Hypertension Surgical History History of arthroscopy of left shoulder History of colonoscopy 2018 History of appendectomy History of tonsillectomy Family History Other Heart disease Social History Smoking Status: Never smoker Second Hand Exposure: No; Do You Dip or Chew Tobacco: No; Hx Alcohol Use: Yes Alcohol type: wine Hx Substance Use: Yes Last Used Substance: Unknown Last Used Substance Other:: a couple days ago Preferred Language: Maori Communication Ability: Effective Car Lubricator Required: No Beliefs That Will Affect Care: None Current Living Situation: Spouse Current Living Situation Comment: Feels Safe at Home: Yes Assistive Devices: Glasses Review of Systems Review of Systems: As per HPI, all other systems reviewed and negative Physical Exam Physical Exam: GENERAL: Comfortable, pleasant, no respiratory distress SKIN: Normal color, warm HEENT: Bespectacled, [place] palpebral conjunctivae, no ptosis, dry buccal mucosa NECK : Supple, no tenderness CHEST : CTA, no tenderness HEART : Bradycardic, no obvious murmurs ABDOMEN: Some distention, nontender EXTREMITIES : No LE swelling/tenderness, no other conspicuous deformities noted NEUROLOGIC : Coherent, no facial asymmetry, no other gross focality Results & Data Results & Data Vital Signs (Past 12 Hours) Vital Signs Temp Pulse Resp BP Pulse Ox O2 Del Method 04/13/23 02:29 58 L 04/13/23 02:00 55 L 17 04/13/23 02:00 128/71 04/13/23 01:30 128/63 04/13/23 01:30 56 L 18 04/13/23 01:00 110/67 04/13/23 01:00 62 18 04/13/23 00:30 121/68 04/13/23 00:30 57 L 17 90 04/13/23 00:00 109/60 04/13/23 00:00 54 L 15 97 04/12/23 23:30 101/70 04/12/23 23:30 54 L 17 95 04/12/23 23:20 97/62 L 04/12/23 23:20 55 L 16 04/12/23 22:45 104/58 L 04/12/23 22:45 104/58 L 04/12/23 22:45 62 17 04/12/23 22:44 92/61 L 04/12/23 22:43 16 95 04/12/23 22:42 56 L 14 92 04/12/23 22:42 104/38 L 04/12/23 22:30 58 L 19 04/12/23 22:28 Room Air 04/12/23 22:17 36.4 C L 60 17 129/69 92 Room Air 04/12/23 22:15 129/69 04/12/23 22:15 129/69 04/12/23 22:15 64 04/12/23 22:15 54 L Laboratory Results Laboratory Results WBC 9.42 K/ul (4.8-10.8) 04/12/23 22:44 RBC 5.08 M/uL (4.70-6.10) 04/12/23 22:44 Hgb 14.8 g/dl (14.0-18.0) 04/12/23 22:44 Hct 46.0 % (42.0-52.0) 04/12/23 22:44 MCV 90.6 fL (80.0-100.0) 04/12/23 22:44 MCH 29.1 pg (25.0-34.0) 04/12/23 22:44 MCHC 32.2 g/dL (32.0-36.0) 04/12/23 22:44 RDW Std Deviation 41.3 fL (36.4-46.3) 04/12/23 22:44 RDW Coeff of Nicolás 12.5 % (11.5-14.5) 04/12/23 22:44 Plt Count 240 K/uL (130-400) 04/12/23 22:44 MPV 9.8 fL (9.4-12.4) 04/12/23 22:44 Immature Gran % (Auto) 0.4 % 04/12/23 22:44 Neut % (Auto) 66.0 % 04/12/23 22:44 Lymph % (Auto) 23.8 % 04/12/23 22:44 Jack % (Auto) 5.2 % 04/12/23 22:44 Eos % (Auto) 3.9 % 04/12/23 22:44 Baso % (Auto) 0.7 % 04/12/23 22:44 Neut # (Auto) 6.21 K/uL (1.40-6.50) 04/12/23 22:44 Lymph # (Auto) 2.24 K/uL (1.20-3.40) 04/12/23 22:44 Jack # (Auto) 0.49 K/uL (0.11-0.59) 04/12/23 22:44 Eos # (Auto) 0.37 K/uL (0.00-0.50) 04/12/23 22:44 Baso # (Auto) 0.07 K/uL (0.00-0.20) 04/12/23 22:44 Immature Gran # (Auto) 0.04 K/uL (0.01-0.20) 04/12/23 22:44 Sodium 140 mmol/L (136-145) 04/12/23 22:44 Potassium 3.4 mmol/L (3.5-5.1) L 04/12/23 22:44 Chloride 105 mmol/L (98-107) 04/12/23 22:44 Carbon Dioxide 25 mmol/L (21-32) 04/12/23 22:44 Anion Gap 10 (3-11) 04/12/23 22:44 BUN 28 mg/dl (6-23) H 04/12/23 22:44 Creatinine 1.14 mg/dl (0.6-1.4) 04/12/23 22:44 Est Cr Clr Drug Dosing 54.2 ml/min 04/12/23 22:44 Est GFR ( Amer) 72.5 ml/min 04/12/23 22:44 Est GFR (Non-Af Amer) 62.6 ml/min 04/12/23 22:44 BUN/Creatinine Ratio 24.6 (10-20) H 04/12/23 22:44 Glucose 141 mg/dl (70-99(Fasting)) H 04/12/23 22:44 POC Glucose 161 mg/dl (70-99) H 04/12/23 22:26 Calcium 9.4 mg/dl (8.6-10.3) 04/12/23 22:44 Magnesium 2.2 mg/dl (1.7-2.4) 04/12/23 22:44 Total Bilirubin 0.7 mg/dl (0.2-1.0) 04/12/23 22:44 AST 17 U/L (13-39) 04/12/23 22:44 ALT 17 U/L (7-52) 04/12/23 22:44 Alkaline Phosphatase 82 U/L (34-104) 04/12/23 22:44 Total Creatine Kinase 120 U/L (30-223) 04/12/23 22:44 Troponin I High Sens 6.2 pg/ml (0-20) 04/12/23 22:44 Total Protein 7.4 gm/dl (6.0-8.3) 04/12/23 22:44 Albumin 4.5 gm/dl (3.4-5.0) 04/12/23 22:44 Globulin 2.9 gm/dl (2.5-4.0) 04/12/23 22:44 Albumin/Globulin Ratio 1.6 (0.9-2) 04/12/23 22:44 TSH 3.889 uIu/ml (0.300-4.500) 04/12/23 22:44 Urine Color Yellow 04/13/23 02:17 Urine Appearance Clear (Clear) 04/13/23 02:17 Urine pH 5.0 (4.5-7.5) 04/13/23 02:17 Ur Specific [place] 1.024 (1.000-1.030) 04/13/23 02:17 Urine Protein Negative (Negative) 04/13/23 02:17 Urine Glucose (UA) Negative (Negative) 04/13/23 02:17 Urine Ketones Trace (Negative) H 04/13/23 02:17 Urine Blood Negative (Negative) 04/13/23 02:17 Urine Nitrite Negative (Negative) 04/13/23 02:17 Urine Bilirubin Negative (Negative) 04/13/23 02:17 Urine Urobilinogen Negative (Negative) 04/13/23 02:17 Ur Leukocyte Esterase Negative (Negative) 04/13/23 02:17 Ethyl Alcohol mg/dL 13.7 mg/dl (<10.0) H 04/12/23 22:[address] 04/12/23 22:23 Exam(s): CT C SPINE EXAM: CT Cervical Spine Without Intravenous Contrast CLINICAL HISTORY: Reason for exam: HI. TECHNIQUE: Axial computed tomography images of the cervical spine without intravenous contrast. CTDI is 25.13 mGy and DLP is 606.66 mGy-cm. Automated exposure control was utilized for the study. A dose lowering technique was utilized adhering to the principles of ALARA. COMPARISON: No relevant prior studies available. FINDINGS: Vertebrae: No acute fracture. No malalignment. 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 Soft tissues: Unremarkable. IMPRESSION: No fracture within the cervical spine. Electronically signed by: Gelacio Weber MD 04/13/23 01:[address] 04/12/23 22:23 Exam(s): CT HEAD Without Contrast EXAM: CT Head Without Intravenous Contrast CLINICAL HISTORY: Reason for exam: syncope. TECHNIQUE: Axial computed tomography images of the head/brain without intravenous contrast. CTDI is 36.05 mGy and DLP is 624.41 mGy-cm. Automated exposure control was utilized for the study. A dose lowering technique was utilized adhering to the principles of ALARA. COMPARISON: No relevant prior studies available. FINDINGS: Brain: No hemorrhage, extra-axial fluid collection, mass effect, or edema. Ventricles: Unremarkable. Bones/joints: Unremarkable. No fracture. Soft tissues: Unremarkable. Sinuses: Multifocal paranasal sinus disease/sinusitis. Mastoid air cells: Unremarkable as visualized. IMPRESSION: 1. No acute intracranial abnormality. 2. Multifocal paranasal sinus disease/sinusitis. Electronically signed by: Gelacio Weber MD 04/12/23 23:30 PM Diagnostic Findings EKG as per my interpretation :Rate 55, sinus bradycardia, LAD, LAFB, 1 AVB, T wave flattening inferior leads (1) Syncope Syncope type: unspecified Qualified Code(s): R55 - Syncope and collapse
[2023-04-13] MEDS ORDERED: PROMETHAZINE HCL 6.25 MG in SODIUM CHLORIDE 0.9% 50 ML IV PRN (02:53)
[2023-04-13] MEDS ORDERED: ACETAMINOPHEN 325 MG TAB PO PRN (04:13)
[2023-04-13] MEDS ORDERED: oxyCODONE HCL IR 5 MG TAB (IMMEDIATE RELEASE) PO PRN (04:13)
[2023-04-13 04:16] LABS: Basophils # (auto) 0.06 K/uL (0.00-0.20); Basophils % (auto) 0.6 %; Eosinophils # (auto) 0.14 K/uL (0.00-0.50); Eosinophils % (auto) 1.4 %; Hemoglobin 13.4 g/dl (14.0-18.0); Immature Granulocytes # (auto) 0.04 K/uL (0.01-0.20); Immature Granulocytes % (auto) 0.4 %; Lymphocytes # (auto) 1.44 K/uL (1.20-3.40); Lymphocytes % (auto) 14.3 %; Mean Corpuscular Hemoglobin 29.8 pg (25.0-34.0); Mean Corpuscular Hgb Conc 33.5 g/dL (32.0-36.0); Mean Corpuscular Volume 88.9 fL (80.0-100.0); Mean Platelet Volume 9.9 fL (9.4-12.4); Monocytes % (auto) 6.9 %; Neutrophils % (auto) 76.4 %; Platelet Count 228 K/uL (130-400); RDW Coefficient of Variation 12.7 % (11.5-14.5); RDW Standard Deviation 41.2 fL (36.4-46.3); White Blood Count 10.08 K/ul (4.8-10.8)
[2023-04-13 04:23] LABS: BUN Creatinine Ratio 25.7 (10-20); Calcium 8.7 mg/dl (8.6-10.3); Creatinine Clr Calc Pharmacy 58.8 ml/min; Est GFR (African American) 80.1 ml/min; Est GFR (Non-African American) 69.1 ml/min; Potassium 3.9 mmol/L (3.5-5.1)
[2023-04-13] MEDS ORDERED: IPRATROPIUM BROMIDE NASAL SPRAY 0.06% 15ML NAE PRN (04:31)
[2023-04-13] MEDS ORDERED: ENOXAPARIN INJ 40 MG/0.4 ML SYR SQ SCH (09:00)
[2023-04-13] MEDS ORDERED: LOSARTAN POTASSIUM 50 MG TAB PO SCH (09:00)
[2023-04-13] MEDS ORDERED: ATORVASTATIN 40 MG TAB PO SCH (09:00)
[2023-04-13] MEDS ORDERED: EZETIMIBE 10 MG TAB PO SCH (09:00)
[2023-04-13] MEDS ORDERED: FLUTICASONE PROPIONATE NA SPR 16 GM BTL SCH (09:00)
[2023-04-13] MEDS ORDERED: AMOXICILLIN/CLAVULANATE 875 MG TAB PO SCH (12:45)
--- NOTE | 2023-04-13 17:14 | Communication Note ---
Date of Service: April 13, 2023 77-year-old male with PMH of HTN, HLD, chronic bradycardia, TIA, PVD status post surgery, MEÑO status post surgery not on CPAP presented with complaint of lightheadedness upon standing up followed by transient weakness/syncopal event. No witnessed seizure activity or incontinence. No chest pain or palpitation. Of note, patient has been in the hospital in the past with hypertensive urgency deemed to be likely secondary to noncompliance with medication. He is being managed for the following: Syncope Orthostatic hypotension Patient came in with transient syncope likely secondary to orthostatic hypotension. Patient reports feeling dizzy when standing up most of the times but not all the time. Blood pressure was low normal in early 90s at presentation. Orthostatic hypotension criteria was not met though there was significant drop in blood pressure upon standing up at presentation. Status post IV fluid, drop in blood pressure during orthostatic vitals improved. Patient is moving around in the hallway independently, no concerns. Patient is on candesartan/amlodipine/hydrochlorothiazide at home for his blood pressure management. Of the above 3, hydrochlorothiazide is more strongly associated with orthostatic hypotension. DC hydrochlorothiazide on discharge, patient to measure blood pressure twice a day upon discharge to maintain a log, follow-up with PCP for ongoing management of his blood pressure. Take candesartan in the morning, amlodipine in the evening. ECHO reviewed - normal exam, consider Zio patch monitoring on discharge. Patient has been explained the importance of compression stockings and slow transition during change in position. Patient voiced understanding. Monitor replete electrolytes. Sinusitis: Left maxillary tenderness on exam, CT head with paranasal sinus disease/sinusitis. Start Augmentin 04/13, continue. Other chronic medical conditions: Continue with/resume home meds as and when able. TIA, continue with statin/ezetimibe. PVD status post surgery HLD, continue with statin Chronic bradycardia, chronic heart rate in 50s Hypertension, discontinue hydrochlorothiazide on discharge, follow-up with PCP for long-term management, measure blood pressure/maintain a log at home. DVT prophylaxis: Lovenox subcu Full code
--- NOTE | 2023-04-13 17:26 | Discharge Summary ---
Date of Service April 13, 2023 Admission HPI Per Admitting Provider History obtained from patient and records. Medical history significant for HTN, hyperlipidemia, chronic bradycardia, TIA, PVD status post surgery, MEÑO status post surgery not on CPAP. Last confinement August 2022 for dizziness secondary to hypertensive urgency. Patient was at a local bar when he felt lightheaded upon standing up. Transient weakness syncopal event. No witnessed seizures or incontinence. No headache, no chest pain, no SOB. Has happened before at the same bar as per patient. Lowest SBP of 90s documented at the ER. 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, retired gymnastics teacher Admission Exam Per Admitting Provider GENERAL: Comfortable, pleasant, no respiratory distress SKIN: Normal color, warm HEENT: Bespectacled, [place] palpebral conjunctivae, no ptosis, dry buccal mucosa NECK : Supple, no tenderness CHEST : CTA, no tenderness HEART : Bradycardic, no obvious murmurs ABDOMEN: Some distention, nontender EXTREMITIES : No LE swelling/tenderness, no other conspicuous deformities noted NEUROLOGIC : Coherent, no facial asymmetry, no other gross focality Principal Diagnosis Syncope Orthostatic hypotension Discharge Exam GENERAL: Alert and oriented x3. NAD, on RA. HEENT: No pallor, no icterus. Pupils equal, round and reactive to light. Oral mucosa moist. NECK: No JVD, no neck masses. HEART: S1 and S2 heard. Regular rate and rhythm. No murmur, no gallop. RESPIRATORY SYSTEM: Normal AP diameter. No accessory muscle use. No wheezing, no crackles. ABDOMEN: Soft, bowel sounds present, nontender, no distention. CENTRAL NERVOUS SYSTEM: No facial droop. Speech is clear. Obeys simple commands. Moves extremities. EXTREMITIES: No edema, no erythema seen. Discharge Data Allergies Allergy/AdvReac Type Severity Reaction Status Date / Time pollen extracts Allergy Intermediate NASAL Verified 04/12/23 23:08 CONGESTION & DRAINAGE Consultations 04/13/23 01:28 ED Decision to Admit Stat Ordered Studies 04/12/23 22:23 CT cervical spine wo con Stat CT head/brain wo con Stat Hospital Course (1) Syncope: Plan 77-year-old male with PMH of HTN, HLD, chronic bradycardia, TIA, PVD status post surgery, MEÑO status post surgery not on CPAP presented with complaint of lightheadedness upon standing up followed by transient weakness/syncopal event. No witnessed seizure activity or incontinence. No chest pain or palpitation. Of note, patient has been in the hospital in the past with hypertensive urgency deemed to be likely secondary to noncompliance with medication. He was managed for the following: Syncope Orthostatic hypotension Patient came in with transient syncope likely secondary to orthostatic hypotension. Patient reports feeling dizzy when standing up most of the times but not all the time. But this time it was severe and he had transient syncope. Blood pressure was low normal in early 90s at presentation. Orthostatic hypotension criteria was not met though there was significant drop in blood pressure upon standing up at presentation. Status post IV fluid, drop in blood pressure during orthostatic vitals improved. Per RN, Patient is moving around in the hallway independently, no concerns. Patient is on candesartan/amlodipine/hydrochlorothiazide at home for his blood pressure management. Of the above 3, hydrochlorothiazide is more strongly associated with orthostatic hypotension. DC hydrochlorothiazide on discharge, patient to measure blood pressure twice a day upon discharge to maintain a log, follow-up with PCP for ongoing management of his blood pressure. Take candesartan in the morning, amlodipine in the evening. Trop nl, EKG reviewed at his baseline. ECHO reviewed - normal exam, consider Zio patch monitoring on discharge. Patient has been explained the importance of compression stockings and slow transition during change in position. Patient voiced understanding. Monitor replete electrolytes. Sinusitis: Left maxillary tenderness on exam, CT head with paranasal sinus disease/sinusitis. Start Augmentin 04/13, continue. 7 day course. Other chronic medical conditions: Continue with/resume home meds as and when able. TIA, continue with statin/ezetimibe. PVD status post surgery HLD, continue with statin Chronic bradycardia, chronic heart rate in 50s Hypertension, discontinue hydrochlorothiazide on discharge, follow-up with PCP for long-term management, measure blood pressure/maintain a log at home. DVT prophylaxis: Lovenox subcu Full code Patient is being discharged home with following instruction at the point of discharge: Follow-up with your primary care physician within a week time and likely you will need labs CBC/CMP/magnesium/phosphorus. As discussed at the bedside, adopt slow transition during change in positions to avoid rapid drop in blood pressure and possible fall/injury. Your hydrochlorothiazide will be stopped on discharge as it is most likely associated with orthostatic hypotension compared to your other hypertensive medications. Take your candesartan in the morning, amlodipine in the evening. Measure your blood pressure twice a day, maintain a log, take it to your primary care physician for further management of your blood pressure. You can utilize thigh-high compression stockings to help with drop in blood pressure while standing up. You will likely benefit from Zio patch monitoring upon discharge, coordinate with your PCP office to set up the test. You will be discharged on antibiotics for your sinusitis for 7 days. Probiotics will be added. Take your medications as prescribed. Please make sure that you are able to get your medications today by calling your pharmacy before you leave the hospital so that your treatment continuity is not broken. Home Health Attestation I certify that this patient is under my care and that I, or a physicians preschool assistant director working with me, had a face to-face encounter that meets the home health [id number] encounter requirements with this patient. The encounter with the patient was in whole, or in part, for the following medical condition, which is the primary reason for home health care (list medic al condition): I certify that, based on my findings, the following services are medically necessary home health services: My clinical findings support the need for the above services because: Further, I certify that my clinical findings support that this patient is homebound (i.e. absences from home require considerable and taxing effort and are for medical reasons or worship services or infrequently or of short duration when for other reasons) because: Certification for Home Health Services: Based on the above findings, I certify that this patient is confined to the home and needs intermittent chcf care, physical therapy and/or speech therapy or continues to need occupational therapy. The patient is under my care, and I have initiated the establishment of the plan of care. This patient will be followed by a physician who will periodically review the plan of care. Total Time Total Time Spent Total Time Spent (In Minutes): 45 Discharge Plan Discharge Items Patient Disposition: Home - Self-Care Reason For Visit: SYNCOPE Discharge Diagnosis: Syncope Orthostatic hypotension Condition on Discharge: Good Activity: Resume your previous activity Non-emergency contact: Primary Care Provider Call non-emergency contact if: you have any medication questions, your symptoms worsen and your temperature is above 101 Follow-up/Referrals: Len Banda MD [Primary Care Provider] - Diet: Heart Healthy Addtl Attending Provider Instructions: Follow-up with your primary care physician within a week time and likely you will need labs CBC/CMP/magnesium/phosphorus. As discussed at the bedside, adopt slow transition during change in positions to avoid rapid drop in blood pressure and possible fall/injury. Your hydrochlorothiazide will be stopped on discharge as it is most likely associated with orthostatic hypotension compared to your other hypertensive medications. Take your candesartan in the morning, amlodipine in the evening. Measure your blood pressure twice a day, maintain a log, take it to your primary care physician for further management of your blood pressure. You can utilize thigh-high compression stockings to help with drop in blood pressure while standing up. You will likely benefit from Zio patch monitoring upon discharge, coordinate with your PCP office to set up the test. You will be discharged on antibiotics for your sinusitis for 7 days. Probiotics will be added. Take your medications as prescribed. Please make sure that you are able to get your medications today by calling your pharmacy before you leave the hospital so that your treatment continuity is not broken. Pending Studies at Discharge: No Stand-Alone Forms: [facility], Smoking Cessation Medications and DC Order Prescriptions: New amoxicillin-pot clavulanate 875-125 mg Tablet 1 tab PO Q12 7 Days Qty: 14 0RF Probiotic 3 billion cell capsule 3,000 mmu cells PO DAILY 7 Days Qty: 7 0RF Rx Instructions: administer with a meal Continued atorvastatin 40 mg Tablet 40 mg PO QAM candesartan 32 mg Tablet 32 mg PO QAM fluticasone propionate 50 mcg/actuation spray,suspension 2 spray INTRANASAL QAM betamethasone dipropionate 0.05 % Cream 1 applic TOPICAL BID PRN (Reason: Skin Irritation) ipratropium bromide 21 mcg (0.03 %) spray,non-aerosol 2 spray INTRANASAL BID PRN (Reason: RHINITIS) oxycodone 5 mg Tablet 5 mg PO Q4H PRN (Reason: Pain) ezetimibe 10 mg tablet 10 mg PO QAM tramadol 50 mg tablet 25 mg PO Q8H PRN (Reason: Pain) meclizine 25 mg tablet 25 mg PO TID PRN (Reason: Dizziness) Changed amlodipine 10 mg tablet 10 mg PO HS Qty: 30 0RF Discontinued hydrochlorothiazide 25 mg tablet 25 mg PO DAILY Discharge Orders: Discharge Order (Routine); Ordered 04/13/23 Ordered By: Tariq Cardenas Admission Data Admit Date/Time: 04/13/23 02:51 Attending Provider: Tariq Cardenas Admit Provider: Fredrick Banks Primary Care Provider: Len Banda Other Providers: Fredrick Banks
[2023-04-13] MEDS ORDERED: amLODIPine BESYLATE 5 MG TAB PO SCH (21:00)
--- NOTE | 2023-04-13 21:08 | Electrocardiogram Report ---
Test Reason : Blood Pressure : / mmHG Vent. Rate : 053 BPM Atrial Rate : 053 BPM P-R Int : 216 ms QRS Dur : 088 ms QT Int : 454 ms P-R-T Axes : 043 -15 006 degrees QTc Int : 426 ms Sinus bradycardia with 1st degree A-V block Otherwise normal ECG When compared with ECG of 17-SEP-2022 16:08, T wave amplitude has decreased in Lateral leads Confirmed by Kory Torres ([id number]) on 04/13/2023 9:08:24 PM Referred By: REFERRED SELF Confirmed By:Kory Torres
== END 2023-04-13 18:38 | disposition home or self-care (01) ==
LOC: ED 22:10 → EDINP 22:10 → 2W 04-13 04:12

== ENCOUNTER 2023-12-23 06:31 | Observation (INO) ==
--- NOTE | 2023-08-13 10:00 | PAT Medication Instructions ---
Medication Instructions Date of Service August 13, 2023 Home Medications Medication Instructions Recorded amlodipine 10 mg tablet 10 mg PO HS #30 tabs 04/13/23 atorvastatin 40 mg tablet 40 mg PO QAM candesartan 32 mg tablet 32 mg PO QAM fluticasone propionate 50 mcg/actuation nasal spray,suspension 2 spray intranasal QAM PRN Allergy Symptoms betamethasone dipropionate 0.05 % topical cream 1 applic topical BID PRN Skin Irritation ezetimibe 10 mg tablet 10 mg PO QAM amlodipine 10 mg tablet 10 mg PO HS hydrochlorothiazide 25 mg tablet 25 mg PO QAM STOP taking 24 hours before surgery betamethasone dipropionate 0.05 % topical cream 1 applic topical BID PRN Skin Irritation DO NOT take the morning of surgery candesartan 32 mg tablet 32 mg PO QAM hydrochlorothiazide 25 mg tablet 25 mg PO QAM Take morning of surgery With a small sip of water, OTHERWISE NOTHING TO EAT OR DRINK AFTER MIDNIGHT: atorvastatin 40 mg tablet 40 mg PO QAM fluticasone propionate 50 mcg/actuation nasal spray,suspension 2 spray intranasal QAM PRN Allergy Symptoms (if needed) ezetimibe 10 mg tablet 10 mg PO QAM Take evening before surgery amlodipine 10 mg tablet 10 mg PO HS Other Notes If you have any questions please call us at [phone] or [phone] or [phone] or [phone]
--- NOTE | 2023-09-04 14:43 | Anesthesiology Consultation ---
Date of Service September 04, 2023 Assessment & Plan (1) Encounter for pre-operative examination: Chart Review Chart Review: Patient seen in Pre Admission Testing Patient called into surgeon's office 09/05/23- due to lack of post op support- patient rescheduling surgery to Nov 2023 - Discussed carotid stenosis/vertebral artery stenosis with Dr. Eagle- chronic issue- seen by neurology in the past - no intervention felt needed- patient can proceed as scheduled - Patient is NOT an ideal OPJ candidate (currently 23 hour obs) Per PAT appt on 09/04/23, no recent illness/disease exposures, illness related symptoms, or recent illness/disease positive tests. Will leave to surgeon's discretion if preop Covid testing needed Right shoulder scope 11/12/19= Done under [facility] with Grade 1 view with MAC #3. ETT #7.5. DVL x 1 atraumatic Teaching & Discussion Pre-Anesthesia Teaching/Discussion Notes: Instructed NPO after midnight before surgery,except medications with 15 cc of water. Medication instructions provided according to the PAT guidelines. History Surgery Operation Date: 12/23/23 08:50 Proposed Procedures p Left Total Knee Arthroplasty - Salas Lambert MD Height/Weight Height: 5 ft 8 in Weight: 82.4 kg Allergies Allergy/AdvReac Type Severity Reaction Status Date / Time pollen extracts Allergy Intermediate NASAL Verified 08/13/23 07:38 CONGESTION & DRAINAGE Medications Home Medications Medication Instructions Recorded Confirmed Last Taken atorvastatin 40 mg tablet 40 mg PO QAM 11/08/19 08/13/23 04/12/23 candesartan 32 mg tablet 32 mg PO QAM 11/08/19 08/13/23 04/12/23 fluticasone propionate 50 2 spray intranasal QAM PRN Allergy 11/16/21 08/13/23 04/12/23 mcg/actuation nasal Symptoms spray,suspension betamethasone dipropionate 0.05 % 1 applic topical BID PRN Skin 04/12/23 08/13/23 Unknown topical cream Irritation ezetimibe 10 mg tablet 10 mg PO QAM 04/12/23 08/13/23 04/12/23 amlodipine 10 mg tablet 10 mg PO HS #30 tabs 04/13/23 08/13/23 04/12/23 hydrochlorothiazide 25 mg tablet 25 mg PO QAM 08/13/23 08/13/23 Unknown Past Medical History Medical History Carotid stenosis Left > right side Per 09/17/22 neck CTA= <50% stenosis to ICAs History of kidney stones Hx of hepatitis at 21 yrs old, treated Hx of syncope (03/2023) x 2 episodes (08/2022 and 03/2023), r/t medications and "sitting too long on a bar stool, cutting off circulation"; no issues since med adjustment Hyperlipidemia Hypertension MEÑO (obstructive sleep apnea) Post surgery- no device PVD (peripheral vascular disease) Per records Seasonal allergies TIA (transient ischemic attack) Per records 2013 - patient denies/has no recollection of TIA Vertebral artery stenosis Per 09/17/22 head CTA= Multifocal high-grade stenoses of the right vertebral and basilar arteries. Per inpatient neuro consult 09/20/22= "Vertigo in the setting of VBA stenosis and uncontrolled HTN. Given the relatively unchanged vascular stenosis, this is likely secondary to HTN... No further neurological work up, not a candidate for cerebrovascular surgical intervention. " Exercise / Class Metabolic Activity II 4-5 Yardwork/Stairs/Walk up hill (one flight of stairs- no chest pain or SOB ) Past Family History Family History Other Heart disease Past Surgical History Surgical History History of appendectomy History of arthroscopy of left shoulder History of arthroscopy of left shoulder History of colonoscopy 2018 History of tonsillectomy Hx of sinus surgery (2022) nasal polyps Past Anesthesia History No Hx of Anesthesia Complications and No Family Hx of Anesthesia Complications History of PONV No Hx of PONV and No Hx of Motion Sickness Social History Smoking Status: Never smoker Do You Dip or Chew Tobacco: No Hx Alcohol Use: Yes Alcohol type: wine alcohol intake frequency: 0-2 drinks per day (1 glass of wine/day) Hx Substance Use: Yes ("occasionally"- advised) substance use type: marijuana Last Used Substance Other:: unsure when last use Review of Systems Patient denies chest pain, shortness of breath, dyspnea on exertion, reflux, cough, wheezing, palpitations. No hx of seizures, stroke, NE. No hx of blood clots or blood transfusions Physical Exam Vital Signs VITALS BP 150/81 P 64 TEMP 98.1 SP02 96% RESP 16 Constitutional no acute distress ENMT Mouth: no TMJ clicking Thyromental Distance: > or= 3.5 Finger Breadths (3.5) Mallampati Class: III Missing side teeth and molars Neck + limited neck extension (minimal) Respiratory normal respiratory effort; no respiratory distress Auscultation: lungs clear to auscultation bilaterally; no wheezes Cardiovascular Rate/Rhythm: regular rate and regular rhythm Heart Sounds: no murmur Vessels: no carotid bruit Musculoskeletal Spine: + pain with cervical ROM (mild) Extremities: extremities normal to inspection Psychiatric Orientation: alert Lab Results Anesthesia Preop Results Results Anesthesia Widget: WBC 11.00 K/ul (4.8-10.8) H 09/04/23 Hgb 13.9 g/dl (14.0-18.0) L 09/04/23 Hct 41.9 % (42.0-52.0) L 09/04/23 Plt 238 K/uL (130-400) 09/04/23 Na 139 mmol/L (136-145) 09/04/23 K 4.0 mmol/L (3.5-5.1) 09/04/23 Cl 109 mmol/L (98-107) H 09/04/23 CO2 26 mmol/L (21-32) 09/04/23 BUN 23 mg/dl (6-23) 09/04/23 Creat 0.97 mg/dl (0.6-1.4) 09/04/23 Glucose Level 102 mg/dl (70-99(Fasting)) H 09/04/23 PT 9.9 Seconds (9.0-12.0) 09/04/23 PTT 24 Seconds (21-31) 09/04/23 INR 0.9 (0.9-1.1) 09/04/23 Blood Type A Positive 09/04/23 Antibody Screen NEGATIVE 09/04/23 Testing Electrocardiogram Date: 04/12/23 SB with 1st degree AVB at 53bpm Otherwise normal EKG per cardio Chest X-Ray Date: 09/04/23 FINDINGS: PA and lateral chest radiographs are compared to study dated 11/16/2021. The cardiomediastinal silhouette is unremarkable. There is mild bibasilar scarring/atelectasis. The lungs and pleural spaces are otherwise clear. There is no pneumothorax. The skeletal structures are osteopenic. The bony thorax appears intact. IMPRESSION: No active disease in the chest. Echocardiogram Date: 04/13/23 EF: 65-70% LV Function: normal RWMA: + none Other Findings: no LVH Mild TR Other Testing Head CT 04/12/23= No acute intracranial abnormality. Multifocal paranasal sinus disease/sinusitis. Brain MRI 09/17/22= No evidence of acute or subacute infarct. Small vessel isc hemic/degenerative changes. Presumed age-related chronic-appearing parenchymal involutional changes. No abnormal enhancement. Neck/Head CTA 09/17/22= No acute intracranial abnormality. Involutional changes with chronic microvascular ischemic disease. Multifocal high-grade stenoses of the right vertebral and basilar arteries. Less than 50% stenosis of the internal carotid arteries.
--- NOTE | 2023-12-21 20:00 | History & Physical Report ---
Date of Service December 21, 2023 Assessment & Plan (1) Left knee DJD: 78-year-old male huff with advanced left knee DJD. He is failed conservative measures. He is ready to have his knee fixed. Plan: Corky taken the operating do a left total knee replacement for the risks Mente this procedure explained the patient include but not limited to a DVT, PE, , infection, neurovascular injury, persistent pain, limited range of motion, fracture, need for further surgery. The patient understands and desires to proceed. Informed consent was obtained. As far as discharge plans he is planning on stay in the hospital overnight and discharged hopefully postop day 1. His is working on setting up assistance for him at home. He will likely use the [facility] program. Will plan on DVT prophylaxis including thigh-high teds, SCDs, and baby aspirin twice a day. (2) Hypertension: (3) TIA (transient ischemic attack): (4) History of kidney stones: (5) Hyperlipidemia: History of Present Illness Chief Complaint: . Persistent left knee pain and discomfort. Primary Care Provider: Len Banda MD . The patient is a 78-year-old gentleman who presents now for surgical treatment of his left knee. Got a long history of left knee pain discomfort that is gradually gotten worse over time. He has been through extensive conservative management in the past which has become less successful. He has had injections which do not seem to help at all anymore. Pain is mostly medial but some global pain. 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 Back to proceed with definitive treatment/knee replacement. Allergies Allergy/AdvReac Type Severity Reaction Status Date / Time pollen extracts Allergy Intermediate NASAL Verified 12/12/23 15:51 CONGESTION & DRAINAGE Home Medications Medication Instructions Recorded Confirmed Type atorvastatin 40 mg tablet 40 mg PO QAM 11/08/19 12/12/23 History candesartan 32 mg tablet 32 mg PO QAM 11/08/19 12/12/23 History fluticasone propionate 50 2 spray intranasal QAM PRN Allergy 11/16/21 12/12/23 History mcg/actuation nasal Symptoms spray,suspension betamethasone dipropionate 0.05 % 1 applic topical BID PRN Skin 04/12/23 12/12/23 History topical cream Irritation ezetimibe 10 mg tablet 10 mg PO QAM 04/12/23 12/12/23 History amlodipine 10 mg tablet 10 mg PO HS #30 tabs 04/13/23 12/12/23 Rx hydrochlorothiazide 25 mg tablet 25 mg PO QAM 08/13/23 12/12/23 History acetaminophen 500 mg tablet 1,000 mg (2 x 500 mg) PO TID pain 12/21/23 Rx (Tylenol Extra Strength) 30 days #180 tabs aspirin 81 mg tablet,delayed 81 mg PO BID 45 days #90 tabs 12/21/23 Rx release (Rebecca Low Dose Aspirin) cefadroxil 500 mg capsule 500 mg PO BID 7 days #14 caps 12/21/23 Rx ketorolac 10 mg tablet 10 mg PO Q6 pain 5 days #20 tabs 12/21/23 Rx ondansetron 4 mg disintegrating 4 mg PO Q8 PRN nausea #20 tabs 12/21/23 Rx tablet oxycodone 5 mg tablet 5 - 10 mg (1 - 2 x 5 mg) PO Q6 PRN 12/21/23 Rx pain #40 tabs sennosides 8.6 mg tablet (Senokot) 8.6 mg PO BID prevent constipation 12/21/23 Rx 14 days #28 tabs tamsulosin 0.4 mg capsule (Flomax) 0.4 mg PO DAILY #7 caps 12/21/23 Rx Past Med/Surg History Problem List Left knee DJD Hypertension (Acute) Subacromial impingement of right shoulder DJD of right AC (acromioclavicular) joint Biceps tendinitis of right shoulder Complete rotator cuff tear or rupture of right shoulder, not specified as traumatic Encounter for pre-operative examination Medical History DJD (degenerative joint disease) MEÑO (obstructive sleep apnea) Post surgery- no device PVD (peripheral vascular disease) Per records TIA (transient ischemic attack) Per records 2013 - patient denies/has no recollection of TIA Hx of hepatitis at 21 yrs old, treated Seasonal allergies Hx of syncope (03/2023) x 2 episodes (08/2022 and 03/2023), r/t medications and "sitting too long on a bar stool, cutting off circulation"; no issues since med adjustment Vertebral artery stenosis Per 09/17/22 head CTA= Multifocal high-grade stenoses of the right vertebral and basilar arteries. Per inpatient neuro consult 09/20/22= "Vertigo in the setting of VBA stenosis and uncontrolled HTN. Given the relatively unchanged vascular stenosis, this is likely secondary to HTN... No further neurological work up, not a candidate for cerebrovascular surgical intervention. " Carotid stenosis Left > right side Per 09/17/22 neck CTA= <50% stenosis to ICAs History of kidney stones Hyperlipidemia Hypertension Surgical History History of arthroscopy of left shoulder Hx of sinus surgery (2022) nasal polyps History of arthroscopy of left shoulder History of colonoscopy 2018 History of appendectomy History of tonsillectomy Family History Other Heart disease Social History Smoking Status: Never smoker Second Hand Exposure: No; Do You Dip or Chew Tobacco: No; Tobacco Cessation Education Requested by Patient: No Hx Alcohol Use: Yes Alcohol type: beer and wine Hx Substance Use: Yes Last Used Substance: Unknown Last Used Substance Other:: advised not to use prior to surgery Preferred Language: Vietnamese Communication Ability: Effective Visual Impairment: No Limitations Backup Engineer Required: No Beliefs That Will Affect Care: None Current Living Situation: Spouse Current Living Situation Comment: Other Information That Helps Us Care for You: No Feels Safe at Home: Yes Safety Concerns: Feels Safe At This Time Assistive Devices: Glasses Review of Systems All systems reviewed & are unremarkable except as noted in HPI & below. Physical Exam . Physical examination reveals a pleasant 78-year-old male looks younger than his stated age. Examination of the left knee reveal patient ambulates with a bit of a limp. He is got varus alignment to his knee. He has a little bit of varus thrust with weightbearing. He is tender over the medial joint line. Minimal knee effusion. Range of motion is near full extension to 125 degrees of flexion. No instability. No pain with hip motion. Constitutional WD/WN, vitals as above Neck trachea midline, no thyromegaly Respiratory normal respiratory effort, lungs clear to auscultation Cardiovascular RRR, no murmur, no edema Gastrointestinal (Abdomen) normal bowel sounds, soft, nontender, no hepatosplenomegaly Results & Data Results & Data Laboratory Results . Diagnostic Findings . X-rays of the left knee revealed advanced medial compartment arthritis previous got complete loss of the medial joint space. He is got osteophytes primarily medially. He is got subchondral sclerosis. PG Care Time/CCT Total # of Minutes Spent Total Time Spent with Patient: Total time spent is greater than 50% in coordination of care (as documented) at patient's floor/unit and/or counseling patient: Coding Level of Care Code None Diagnoses Left knee DJD M17.12 Hypertension I10 Hypertension type: unspecified TIA (transient ischemic attack) G45.9 History of kidney stones Z87.442 Hyperlipidemia E78.5 (2) Hypertension Hypertension type: unspecified Qualified Code(s): I10 - Essential (primary) hypertension
[~2023-12-23 06:31] MED LIST: BUPIVACAINE 0.25% PF 30 ML VIAL ONE; BUPIVACAINE 0.5 % 5 MG/1 ML PF 10ML VIAL ONE
--- NOTE | 2023-12-23 06:43 | History & Physical Bridge Note ---
Date of Service December 23, 2023 History & Physical Bridge Note I have examined the patient, reviewed the History & Physical and in the interval since the performance of the History & Physical I have noted the following changes of clinical significance: no changes noted
[2023-12-23] MEDS: LR 500ML BOLUS, THEN 15ML/HR IV SCH (07:10)
[2023-12-23] MEDS: LR 60ML/HR IV SCH (07:23)
[2023-12-23] MEDS: METOCLOPRAMIDE HCL 10 MG TABLET PO SCH (07:24)
[2023-12-23] MEDS: ACETAMINOPHEN 500 MG TAB PO SCH ×2 (07:24→16:08)
[2023-12-23] MEDS: FAMOTIDINE 20 MG TAB PO SCH (07:24)
[2023-12-23] MEDS: CeleBREX 200 MG CAP PO SCH (07:24)
[2023-12-23] MEDS: dexAMETHasone**PF** 10 MG/ML VIAL IV SCH (07:25)
[2023-12-23] MEDS ORDERED: fentaNYL citrate PF 100 MCG/2 ML VIAL ONE (07:26)
[2023-12-23] MEDS ORDERED: MIDAZOLAM HCL 1 MG/ML 2ML VIAL ONE ×2 (07:26)
[2023-12-23] MEDS ORDERED: PROPOFOL IV EMULSION 10 MG/ML 20 ML VIAL IV ONE (08:10)
[2023-12-23] MEDS ORDERED: ONDANSETRON INJ 2 MG/ML 2 ML VIAL ONE (08:11)
[2023-12-23] MEDS ORDERED: ONDANSETRON INJ 2 MG/ML 2 ML VIAL IV PRN ×2 (08:36→12:07)
[2023-12-23] MEDS ORDERED: fentaNYL citrate PF 100 MCG/2 ML VIAL IV PRN (08:36)
[2023-12-23] MEDS ORDERED: ATROPINE SULFATE 0.1 MG/ML 10ML SYR IV PRN (08:36)
[2023-12-23] MEDS ORDERED: ePHEDrine sulfate 50 MG/ML AMP IV PRN (08:36)
[2023-12-23] MEDS: ceFAZolin 2000MG 2,000 MG/15 ML SYR IV SCH ×2 (09:29→17:34)
[2023-12-23] MEDS: ORTHO JOINT ANESTHETIC ONE (10:06)
[2023-12-23] MEDS: ROPIV 0.5% 246mg, Ketorolac 30mg, EPINEPHrine 0.5mg in NSS INFIL SCH (10:06)
[2023-12-23] MEDS: VANCOMYCIN HCL 1000MG/20ML VIAL ONE (10:07)
[2023-12-23] MEDS: TRANEXAMIC ACID 1,000 MG **IV Intra-op IV SCH (10:48)
--- NOTE | 2023-12-23 11:12 | Operative Report ---
PG Post Operative Report Pre & Post Diagnosis Operation Date: 12/23/23 08:50 Pre-Op Diagnosis: Left Knee Degenerative Joint Disease Post-Op Diagnosis: Left Knee Degenerative Joint Disease I identified the patient and participated in the time-out.: Yes Procedure Operation Date: 12/23/23 08:50 Actual Procedures p Left Total Knee Arthroplasty, Cemented - Salas Lambert MD Surgeon Salas Lambert MD Assembly Repairer Armen Munguia PA-C Estimated Blood Loss 50 Findings Consistent with Post-Op Diagnosis Operative findings reveal advanced left knee DJD. Extensive grade 4 [id number] disease of the medial compartment. The lateral compartment is pretty well spared. He did varus deformity to his knee. Moderate-sized knee joint effusion. Small osteophytes medially. Eburnation of the entire medial femoral condyle and the majority of the medial tibial plateau. Specimens Left knee sent for pathology. 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 He has been through extensive conservative treatment which became less successful over time. X-rays show advanced left knee DJD. He elected proceed with total knee arthroplasty. Description of Procedure Operative implants consist of: 1 Biomet Vanguard size 72.5 left posterior stabilized femoral component. 2. Biomet size 75 tibial tray. 3. 10 mm post stabilized polyethylene insert. 4. 31 x 8 all poly patella. The patient was taken the operating, identified, placed on the operating table in the supine position. All contact areas were appropriately padded. IV anti biotics tried by anesthesia team. A spinal anesthetic and adductor canal block had been provided in the holding area. A left thigh turn was then placed. The left lower extremity was then prepped and draped in usual sterile fashion. The left leg was elevated and exsanguinated with use of an Esmarch and the tourniquet was placed at 300 mmHg. An anterior approach left knee was then performed to longitudinal incision centered over the patella. Sharp dissection was Through subcutaneous tissue down the extensor mechanism. A medial parapatellar arthrotomy incision was made. Some subperiosteal dissection was carried out medially. The fat pad was dissected from Neath patella tendon. The lateral patellofemoral ligament was released. Patella subluxated laterally knee was flexed. The osteophytes taken on distal femur. The ACL and PCL were then released from the distal femur and the tibia subluxated anteriorly. The external tibial alignment jig was then placed on the anterior face of the tibia and adjusted 14 mm medially. The proximal tibial cut was made remove about a millimeter bone from most deficient aspect medial tibial plateau. Some osteophytes taken off medial and posterior medially. The tibia sized to a size 75. Attention drawn to the femur. The distal femur termed a sharp drill. Intramedullary canal was suction. A left 6 degree valgus cutting guide was placed. The distal femoral cutting block was pinned in place. Distal femoral cut was made to take an additional 3 mm of bone off distal femur. The femur was then sized to a size 72.5. We downsize this almost an entire size due to the fairly relatively narrow medial and lateral dimensions of his femur. The AP cutting block was pinned parallel to the epicondylar axis which was 4 degrees of external rotation. The anterior cut, anterior chamfer, posterior cut, posterior chamfer cuts were made. The box cutting guide was placed in the just slight lateral and the box cut was made. The knee was flexed. The remnants of the medial and lateral menisci were excised. The osteophytes taken off the posterior aspect the femur. A trial femoral component was placed. The tibial tray was pinned Milvia external rotation and the drill and stem punch used to create defect in proximal tibia for the tibial tray. The knee was then trialed and the 10 mm insert fit most appropriately. Attention drawn the patella. The patella was cleaned of all soft tissue. Patella thickness measured 23 mm in thickness was cut down to 14. Was sized to a size 31 patella. The lug holes were drilled for 31 patella. The lateral osteophytes removed. Patella button was placed. Knee was taken through range of motion and the patella tracked nicely with no thumbs test. Attention drawn to place the permanent components. All trial components were removed. Bone plug was placed into this femur limit blood loss. Double batch Palacos G cement was mixed. I did add an additional gram of vancomycin due to his history of multiple abrasions due to his line of work. A BiomJust Sing Itguard size 72.5 left posterior stabilized femoral component, a size 75 tibial tray, a 10 mm posterior Byce polyethylene insert, and a 31 x 8 all poly patella then cemented in place. The knee was brought out into full extension till cement hardened. Final cement check was then performed. The pericapsular tissues were injected with total of 100 cc of Ortho mix. Patient did receive 1 g tranexamic acid. The tourniquet was then let down for final tourniquet time of 55 minutes. Hemostasis assured with electrocautery. Extensor Meclomen closed with combination 1 PDS suture and #1 Vicryl suture in a [id number] fashion. Extensor Meclomen was checked found to be intact and subcutaneous tissue then closed with 2 Dexon suture in a buried interrupted fashion skin was closed skin zaida. Leg was then cleaned and dried a sterile dressing was Xeroform, 4 fours, sterile cast padding, Hany bandage were applied. The patient then transferred to the recovery room in stable condition. Patient tolerated the procedure well and there were no complications. Armen Munguia, my physician workers compensation claims assistant, was present for the entire procedure. His assistance was essential and required for appropriate patient positioning, prepping and draping, surgical exposure, performing the technical details of the operation, placement the implants, closure of the wound, and placement of the sterile bandage. I attest to the content of the Intraoperative Record and any orders documented therein. Any exceptions are noted below.
--- NOTE | 2023-12-23 11:37 | XRay Report ---
XR knee LT 1 or 2V routine HISTORY: 78 years-old Male Surgical Post Op COMPARISON: 08/11/2023 TECHNIQUE: 2 views of the left knee FINDINGS: Total joint arthroplasty with patellar resurfacing. Anterior midline skin zaida with expected posto perative soft tissue swelling and deep tissue air. No acute fracture, dislocation or unexpected opaqu e foreign body. IMPRESSION: Total joint arthroplasty with expected postoperative changes. ACT 112: Negative or not required by law. The above report was generated using voice recognition software. It may contain grammatical, syntax o r spelling errors. Electronically signed by: Fernie Ocampo M.D. 12/23/2023 11:35 AM
[2023-12-23] MEDS ORDERED: bisacodyL 10 MG SUPP PR PRN (12:07)
[2023-12-23] MEDS ORDERED: ALUMINUM/MAGNESIUM SUSP 30 ML UDC PO PRN (12:07)
[2023-12-23] MEDS ORDERED: METOCLOPRAMIDE HCL INJ 5 MG/ML 2 ML VIAL IV PRN (12:07)
[2023-12-23] MEDS ORDERED: MAGNESIUM HYDROXIDE SUSP 30 ML UDC PO PRN (12:07)
[2023-12-23] MEDS ORDERED: NALOXONE HCL 0.4 MG/1 ML VIAL/CARP IV PRN (12:07)
[2023-12-23] MEDS ORDERED: FLUTICASONE PROPIONATE NA SPR 16 GM BTL NAE PRN (12:07)
[2023-12-23] MEDS: SODIUM CHLORIDE 0.9% 1,000 ML IV SCH (12:39)
[2023-12-23] MEDS ORDERED: BETAMETHASONE DIP AUG (DIPROLENE) 0.05% CR 15 GM TUBE EXT PRN (12:47)
--- NOTE | 2023-12-23 13:05 | Anesthesiology Progress Note ---
Date of Service December 23, 2023 Anesthesia Post Procedure Vital Signs Vital Signs: Temp Pulse Pulse Resp BP Pulse Ox O2 Del Method 12/23/23 12:38 36.4 C L 55 L 18 117/63 97 Nasal Cannula 12/23/23 12:15 Nasal Cannula 12/23/23 12:08 36.4 C L 56 L 16 106/56 L 94 Nasal Cannula 12/23/23 12:00 36.4 C L 55 L 17 105/51 L 94 Nasal Cannula 12/23/23 11:50 53 L 14 102/50 L 94 Nasal Cannula 12/23/23 11:40 55 L 12 101/47 L 95 Nasal Cannula 12/23/23 11:30 54 L 13 107/51 L 93 Nasal Cannula 12/23/23 11:20 59 L 20 106/50 L 93 Room Air 12/23/23 11:12 36.5 C 56 L 16 100/50 L 97 Room Air 12/23/23 06:50 36.5 C 58 L 18 165/73 H 96 Room Air O2 Flow Rate 12/23/23 12:38 2 12/23/23 12:15 3 12/23/23 12:08 3 12/23/23 12:00 4 12/23/23 11:50 4 12/23/23 11:40 4 12/23/23 11:30 2 12/23/23 11:20 12/23/23 11:12 12/23/23 06:50 Pain Intensity Left Knee: Pain Intensity: 0 Transfer of Care Handoff Completed per policy Notes Mental Status: alert / awake / arousable and participated in evaluation Patient Amnestic to Procedure: Yes Nausea / Vomiting: adequately controlled Pain: adequately controlled Airway Patency, RR, SpO2: stable & adequate BP & HR: stable & adequate Hydration State: stable & adequate Neuraxial Anesthesia: was administered and sensory block is resolving Anesthetic Complications: no major complications apparent and Pt Satisfied with anesthetic care
[2023-12-23] MEDS: ASCORBIC ACID 500 MG TAB PO SCH (16:09)
[2023-12-23] MEDS: TRANEXAMIC ACID / 0.7% NACL 1,000 MG/100 ML BAG IV SCH (17:12)
[2023-12-23] MEDS: KETOROLAC TROMETHAMINE 15 MG/ML VIAL IV SCH (17:32)
[2023-12-23] MEDS ORDERED: SENNA 8.6 MG TAB PO SCH (21:00)
[2023-12-23] MEDS: oxyCODONE HCL IR 5 MG TAB (IMMEDIATE RELEASE) PO PRN (21:10)
[2023-12-23] MEDS: DOCUSATE SODIUM 100 MG CAP PO SCH (21:10)
[2023-12-23] MEDS: SENNA 8.6 MG TAB PO SCH (21:11)
[2023-12-23] MEDS: ASPIRIN 81 MG ECTAB PO SCH (21:11)
[2023-12-23] MEDS: amLODIPine BESYLATE 5 MG TAB PO SCH (21:11)
[2023-12-24] MEDS: HYDROmorphone INJ 0.5 MG/0.5 ML SYR IV PRN (01:29)
[2023-12-24 03:21] VITALS: RESP 18
[2023-12-24 07:20] VITALS: BP 139/66; PULSE 60; TEMP 97.5; O2SAT 96
[2023-12-24 07:20] LABS: Hematocrit (blood only) 34.7 % (42.0-52.0); Hemoglobin 11.5 g/dl (14.0-18.0); Mean Corpuscular Hemoglobin 29.5 pg (25.0-34.0); Mean Corpuscular Hgb Conc 33.1 g/dL (32.0-36.0); Mean Platelet Volume 10.3 fL (9.4-12.4); Platelet Count 209 K/uL (130-400); RDW Coefficient of Variation 11.9 % (11.5-14.5); RDW Standard Deviation 37.9 fL (36.4-46.3)
[2023-12-24 07:30] LABS: BUN Creatinine Ratio 21.1 (10-20); Creatinine Clr Calc Pharmacy 73.8 ml/min; Est GFR (African American) 95.8 ml/min; Est GFR (Non-African American) 82.7 ml/min; Potassium 4.2 mmol/L (3.5-5.1)
[2023-12-24] MEDS: dexAMETHasone 10 MG in SYRINGE 0 ML IV SCH (08:57)
[2023-12-24] MEDS: LOSARTAN POTASSIUM 50 MG TAB PO SCH (08:59)
[2023-12-24] MEDS: hydroCHLOROthiazide 25 MG TAB PO SCH (09:00)
[2023-12-24] MEDS: TAMSULOSIN HCL 0.4 MG CAP PO SCH (09:00)
[2023-12-24] MEDS: EZETIMIBE 10 MG TAB PO SCH (09:00)
[2023-12-24] MEDS: MULTIVITAMIN TAB PO SCH (09:01)
[2023-12-24] MEDS: ATORVASTATIN 40 MG TAB PO SCH (09:01)
--- NOTE | 2023-12-24 11:08 | Orthopedic Progress Note ---
Date of Service December 24, 2023 Assessment & Plan (1) Status post left knee replacement: Plan: 78-year-old gentleman postop day 1 from left knee replacement doing pretty well. Pains controlled. He is neurologically intact. Plan: 1. DVT prophylaxis including thigh-high teds, SCDs, aspirin twice a day. 2. PT/OT. Weight-bear as tolerated. Left total knee protocol. 3. Pain control doing okay with current pain regimen. 4. Disposition plan to discharge to home if he does okay in therapy today. Will instruct him on the wound care. Be following up in the clinic in 2 weeks. Admission and Anticipated Discharge Date Admission Date: December 23, 2023 Subjective 78-year-old gentleman postop day 1 from left knee replacement. He is doing pretty well. Had a reasonable night. Pains controlled. No chest pain or shortness of breath. Hoping to go home today. Physical Exam Physical Exam: Physical exam shows a pleasant middle-age male. Lying bed looks pretty comfortable. Examination left leg reveals the dressing to be in place. He does have some bloody drainage on the dressing. He can dorsiflex and plantarflex his foot appropriately. He is neurologically intact. Brisk refill to the toes. Respiratory: normal respiratory effort, lungs clear to auscultation Cardiovascular: RRR, no murmur, no edema Gastrointestinal (Abdomen): normal bowel sounds, soft, nontender, no hepatosplenomegaly Results & Data Vital Signs (Past 12 Hours) Vital Signs Temp Pulse Resp BP Pulse Ox O2 Del Method 12/24/23 07:19 36.4 C L 60 18 139/66 96 Room Air 12/24/23 03:20 36.6 C 64 18 164/70 H 97 Room Air 12/23/23 23:11 36.4 C L 57 L 16 128/67 95 Room Air Laboratory Results Hemoglobin is 11.5. Hematocrit is 34.7. Electrolytes are stable.
== END 2023-12-24 12:05 | disposition home health service (06) ==
LOC: 3E 06:31 → ASU 06:31

== ENCOUNTER 2024-01-01 21:28 | Observation (INO) ==
[2024-01-01 22:08] LABS: Basophils # (auto) 0.13 K/uL (0.00-0.20); Basophils % (auto) 0.8 %; Eosinophils # (auto) 0.72 K/uL (0.00-0.50); Eosinophils % (auto) 4.7 %; Hematocrit (blood only) 36.3 % (42.0-52.0); Hemoglobin 12.3 g/dl (14.0-18.0); Immature Granulocytes # (auto) 0.27 K/uL (0.01-0.20); Immature Granulocytes % (auto) 1.8 %; Lymphocytes # (auto) 2.97 K/uL (1.20-3.40); Lymphocytes % (auto) 19.3 %; Mean Corpuscular Hemoglobin 29.9 pg (25.0-34.0); Mean Corpuscular Hgb Conc 33.9 g/dL (32.0-36.0); Mean Corpuscular Volume 88.1 fL (80.0-100.0); Mean Platelet Volume 9.9 fL (9.4-12.4); Monocytes # (auto) 0.96 K/uL (0.11-0.59); Monocytes % (auto) 6.2 %; Neutrophils # (auto) 10.35 K/uL (1.40-6.50); Neutrophils % (auto) 67.2 %; Platelet Count 398 K/uL (130-400); RDW Standard Deviation 38.8 fL (36.4-46.3); Red Blood Count 4.12 M/uL (4.70-6.10)
[2024-01-01 22:23] LABS: Albumin Globulin Ratio 1.4 (0.9-2); Albumin Level 4.2 gm/dl (3.4-5.0); BUN Creatinine Ratio 27.1 (10-20); Bilirubin,Total 1.4 mg/dl (0.2-1.0); Calcium 9.1 mg/dl (8.6-10.3); Magnesium 2.3 mg/dl (1.7-2.4); Potassium 4.2 mmol/L (3.5-5.1); Total Protein 7.2 gm/dl (6.0-8.3)
--- NOTE | 2024-01-01 22:26 | Emergency Department Note ---
Impression & Plan Syncope and collapse, DARSHAN (acute kidney injury) ED Provider Note HISTORY OF PRESENT ILLNESS: Patient is a 78-year-old male presenting with a syncopal episode. Patient reportedly was at the kitchen table this evening with friends when he suddenly slumped over and fell out of the chair, striking his head on the ground. His family member at bedside reports that they were able to sit him up on the floor and he seemed to be "out of it." They report that "he was staring and it was like the lights around but no one was home." They report this lasted for a few minutes and the patient came to. Patient denies any chest pain, shortness of breath or lightheadedness prior to the fall. Patient has a history of syncopal episodes, per family member. Patient is on an aspirin daily. He recently had knee replacement surgery 1 week ago. He reports he is on aspirin postsurgery. He denies any DVT or PE history. Denies any history of cardiac stents. He reports he feels a little bit lightheaded on arrival to the ER. Per EMS report, he was hypotensive on their arrival and received 500 cc of normal saline en route with improvement in his symptoms. Patient denies any abdominal pain, nausea or vomiting. ROS: as above PHYSICAL EXAM: Constitutional: Patient appears in no acute distress. HENT: Head: Normocephalic and atraumatic. Eyes: EOMI, PERRL Mouth/Throat: Mucous membranes moist. Neck: Trachea midline. Neck supple. No midline cervical spine tenderness to palpation. Cardiovascular: RRR, No murmurs, rubs or gallops. Intact distal pulses. Pulmonary/Chest: No respiratory distress. Breath sounds clear and equal bilaterally. No wheezes or rales. Abdominal: Abdomen soft, no tenderness, rebound or guarding. Musculoskeletal: No edema, tenderness or deformity noted. Skin: Warm and dry. No rash, erythema, pallor or cyanosis Psychiatric: Appropriate mood and affect for situation. Neurological: Alert and keenly responsive. CN II-XII grossly intact, moving all extremities equally and fully. MDM: - Vitals signs stable. - History obtained via patient. History as above. - Chronic conditions affecting care: vertebral artery stenosis; HLD; HTN; PVD; TIA - Differential diagnoses include, but are not limited to: CVA; intracranial hemorrhage; ACS; dysrhythmia; electrolyte abnormality; dehydration - Order placed for continuous cardiac monitoring. At this time, monitor showed rate of 60 bpm with normal sinus rhythm, per my interpretation. - External medical records reviewed. EMS run sheet was reviewed. Patient was brought in by the [facility]. He had initial blood pressure of 99/54. He was given 500 cc of normal saline prehospital. - EKG interpreted by myself showed normal sinus rhythm. Rate 63 bpm. QT 432. No acute ischemic changes. - Laboratory workup interpreted by myself showed leukocytosis (WBC 15.40); normal PT/INR; slight hyponatremia (Na 134); DARSHAN (Cr 1.44); elevated anion gap (13); normal troponin; elevated TSH (5.687) with normal T4 - CXR negative for pneumonia, per my interpretation - CT head wo contrast negative for acute intracranial pathology. Noted to have some increased dilatation of the superficial tentorial ventricles concerning for potential NPH. Also noted to have sinusitis. - CTA chest ordered to rule out aortic dissection or PE, given recent surgery. - Patient given 1L NS in ER. - Discussion was had with case technician about patient's case and need for admission - Hospitalist, Dr. Banks, consulted for admission - Patient admitted to [facility] service for further evaluation and management. ASSESSMENT AND PLAN: Diagnosis: syncope and collapse; DARSHAN Plan: admit Past Med/Surg History Problem List (Updated 01/02/24 @ 00:25 by Tracie Da Silva MD) DARSHAN (acute kidney injury) (Acute) Syncope and collapse (Acute) Status post left knee replacement Left knee DJD Hypertension (Acute) Subacromial impingement of right shoulder DJD of right AC (acromioclavicular) joint Biceps tendinitis of right shoulder Complete rotator cuff tear or rupture of right shoulder, not specified as traumatic Encounter for pre-operative examination Medical History DJD (degenerative joint disease) MEÑO (obstructive sleep apnea) Post surgery- no device PVD (peripheral vascular disease) Per records TIA (transient ischemic attack) Per records 2013 - patient denies/has no recollection of TIA Hx of hepatitis at 21 yrs old, treated Seasonal allergies Hx of syncope (03/2023) x 2 episodes (08/2022 and 03/2023), r/t medications and "sitting too long on a bar stool, cutting off circulation"; no issues since med adjustment Vertebral artery stenosis Per 09/17/22 head CTA= Multifocal high-grade stenoses of the right vertebral and basilar arteries. Per inpatient neuro consult 09/20/22= "Vertigo in the setting of VBA stenosis and uncontrolled HTN. Given the relatively unchanged vascular stenosis, this is likely secondary to HTN... No further neurological work up, not a candidate for cerebrovascular surgical intervention. " Carotid stenosis Left > right side Per 09/17/22 neck CTA= <50% stenosis to ICAs History of kidney stones Hyperlipidemia Hypertension Surgical History History of arthroscopy of left shoulder Hx of sinus surgery (2022) nasal polyps History of arthroscopy of left shoulder History of colonoscopy 2018 History of appendectomy History of tonsillectomy Family History Other Heart disease Social History Smoking Status: Never smoker Second Hand Exposure: No; Do You Dip or Chew Tobacco: No; Hx Alcohol Use: Yes Alcohol type: beer and wine Hx Substance Use: Yes Last Used Substance: Unknown Last Used Substance Other:: advised not to use prior to surgery Preferred Language: Albanian Communication Ability: Effective Visual Impairment: No Limitations Road Service Locksmith Required: No Beliefs That Will Affect Care: None Current Living Situation: Spouse Current Living Situation Comment: Feels Safe at Home: Yes Assistive Devices: Walker Allergies Allergies Allergy/AdvReac Type Severity Reaction Status Date / Time pollen extracts Allergy Intermediate NASAL Verified 12/23/23 06:51 CONGESTION & DRAINAGE Home Meds Home Medications Medication Instructions Recorded Confirmed atorvastatin 40 mg tablet 40 mg PO QAM 11/08/19 12/23/23 candesartan 32 mg tablet 32 mg PO QAM 11/08/19 12/23/23 fluticasone propionate 50 2 spray intranasal QAM PRN Allergy 11/16/21 12/23/23 mcg/actuation nasal Symptoms spray,suspension betamethasone dipropionate 0.05 % 1 applic topical BID PRN Skin 04/12/23 12/23/23 topical cream Irritation ezetimibe 10 mg tablet 10 mg PO QAM 04/12/23 12/23/23 hydrochlorothiazide 25 mg tablet 25 mg PO QAM 08/13/23 12/23/23 Previous Rx's Medication Instructions Recorded amlodipine 10 mg tablet 10 mg PO HS #30 tabs 04/13/23 acetaminophen 500 mg tablet 1,000 mg (2 x 500 mg) PO TID pain 12/21/23 (Tylenol Extra Strength) 30 days #180 tabs aspirin 81 mg tablet,delayed 81 mg PO BID 45 days #90 tabs 12/21/23 release (Rebecca Low Dose Aspirin) cefadroxil 500 mg capsule 500 mg PO BID 7 days #14 caps 12/21/23 ketorolac 10 mg tablet 10 mg PO Q6 pain 5 days #20 tabs 12/21/23 ondansetron 4 mg disintegrating 4 mg PO Q8 PRN nausea #20 tabs 12/21/23 tablet oxycodone 5 mg tablet 5 - 10 mg (1 - 2 x 5 mg) PO Q6 PRN 12/21/23 pain #40 tabs sennosides 8.6 mg tablet (Senokot) 8.6 mg PO BID prevent constipation 12/21/23 14 days #28 tabs tamsulosin 0.4 mg capsule (Flomax) 0.4 mg PO DAILY #7 caps 12/21/23 Results & Data (ED) Vital Signs Vital Signs - 24 hr 01/01/24 21:30 01/01/24 21:39 01/01/24 21:41 Temperature 36.8 C Temperature Source Oral Pulse Rate 57 L 60 Pulse Rate from SpO2 Sensor Respiratory Rate 18 Respiratory Effort / Characteristics Non-Labored Spontaneous Respiratory Depth Normal Respiratory Pattern Regular Blood Pressure 116/55 L Blood Pressure Mean 75 Blood Pressure Position Sitting Pulse Oximetry 95 95 Oxygen Delivery Method Room Air Room Air Sepsis Recent Fever Within 48 Hours No Sepsis New/Unexplained Change in Mental Status N/A Sepsis Action Taken by Nursing No Action Required 01/01/24 22:00 01/01/24 23:00 Temperature Temperature Source Pulse Rate 60 67 Pulse Rate from SpO2 Sensor 60 63 Respiratory Rate 18 20 Respiratory Effort / Characteristics Respiratory Depth Respiratory Pattern Blood Pressure 109/51 L 122/58 L Blood Pressure Mean 70 94 Blood Pressure Position Pulse Oximetry 92 98 Oxygen Delivery Method Sepsis Recent Fever Within 48 Hours Sepsis New/Unexplained Change in Mental Status Sepsis Action Taken by Nursing Laboratory Data 01/01/24 21:30 01/01/24 21:30 Lab Results 01/01/24 Range/Units 21:30 WBC 15.40 H (4.8-10.8) K/ul RBC 4.12 L (4.70-6.10) M/uL Hgb 12.3 L (14.0-18.0) g/dl Hct 36.3 L (42.0-52.0) % MCV 88.1 (80.0-100.0) fL MCH 29.9 (25.0-34.0) pg MCHC 33.9 (32.0-36.0) g/dL RDW Std Deviation 38.8 (36.4-46.3) fL RDW Coeff of Nicolás 12.0 (11.5-14.5) % Plt Count 398 (130-400) K/uL MPV 9.9 (9.4-12.4) fL Immature Gran % (Auto) 1.8 % Neut % (Auto) 67.2 % Lymph % (Auto) 19.3 % [place] % (Auto) 6.2 % Eos % (Auto) 4.7 % Baso % (Auto) 0.8 % Neut # (Auto) 10.35 H (1.40-6.50) K/uL Lymph # (Auto) 2.97 (1.20-3.40) K/uL [place] # (Auto) 0.96 H (0.11-0.59) K/uL Eos # (Auto) 0.72 H (0.00-0.50) K/uL Baso # (Auto) 0.13 (0.00-0.20) K/uL Immature Gran # (Auto) 0.27 H (0.01-0.20) K/uL PT 10.2 (9.0-12.0) Seconds INR 0.9 (0.9-1.1) Sodium 134 L (136-145) mmol/L Potassium 4.2 (3.5-5.1) mmol/L Chloride 99 (98-107) mmol/L Carbon Dioxide 22 (21-32) mmol/L Anion Gap 13 H (3-11) BUN 39 H (6-23) mg/dl Creatinine 1.44 H (0.6-1.4) mg/dl Est Cr Clr Drug Dosing 47.0 ml/min eGFR 50.36 BUN/Creatinine Ratio 27.1 H (10-20) Glucose 170 H (70-99(Fasting)) mg/dl Calcium 9.1 (8.6-10.3) mg/dl Magnesium 2.3 (1.7-2.4) mg/dl Total Bilirubin 1.4 H (0.2-1.0) mg/dl AST 24 (13-39) U/L ALT 31 (7-52) U/L Alkaline Phosphatase 77 (34-104) U/L Troponin I High Sens 5.6 (0-20) pg/ml Total Protein 7.2 (6.0-8.3) gm/dl Albumin 4.2 (3.4-5.0) gm/dl Globulin 3.0 (2.5-4.0) gm/dl Albumin/Globulin Ratio 1.4 (0.9-2) Lipase 45 (11-82) U/L TSH 5.687 H (0.300-4.500) uIu/ml Free T4 0.84 (0.61-1.60) ng/dl Administered Medications Discontinued Medications Sodium Chloride (Nss) 1,000 mls @ 999 mls/hr IV .Q1H1M ONE Stop: 01/01/24 23:23 Last Admin: 01/01/24 22:39 Dose: 999 mls/hr Documented By: JESSIKA Ioversol (Optiray 320 125ml) 117 ml IV ONCE ONE Stop: 01/01/24 23:16 Last Admin: 01/01/24 23:16 Dose: 117 ml Documented By: BENJAMIN Imaging Data Radiologist's Impression: Head CT 01/01/24 21:52 Exam(s): CT HEAD Without Contrast EXAM: CT Head Without Intravenous Contrast CLINICAL HISTORY: Reason for exam: syncope. TECHNIQUE: Axial computed tomography images of the head/brain without intravenous contrast. CTDI is 36.9 mGy and DLP is 702.46 mGy-cm. Automated exposure control was utilized for the study. A dose lowering technique was utilized adhering to the principles of ALARA. COMPARISON: CT head: 04/12/2023 FINDINGS: Motion-induced image degradation. Brain: There is no acute intracranial hemorrhage, mass-effect or midline shift. Fortune-white matter differentiation is maintained. There is cerebral atrophy with widening of the extra-axial spaces and ventricular dilatation. Areas of decreased attenuation seen within the white matter tracts of the supratentorial brain, likely from chronic microvascular disease. Bones/joints: Unremarkable. No acute fracture. Soft tissues: Unremarkable. Sinuses: Moderately severe bilateral ethmoid sinusitis. Bilateral antrostomies. A small air-fluid level in right maxillary sinus/acute sinusitis. Residual small mucosal thickening of the left maxillary sinus. Mastoid air cells: Absence of right mastoid air cells. No left mastoid effusion. IMPRESSION: No acute intracranial abnormality noted. Increased dilatation of the supratentorial ventricles, question NPH in the appropriate clinical context. Chronic involutional and ischemic changes of the brain. Moderately severe bilateral ethmoid sinusitis. Right maxillary mild acute sinusitis . Electronically signed by: Ran Farrell MD, DABR 01/01/24 23:50 PM Discharge Plan Visit Data Chief Complaint: Syncope Stated Complaint: Syncope ED Provider: Tracie Da Silva Discharge Problem: Syncope and collapse, DARSHAN (acute kidney injury) Forms Stand Alone Forms: [facility] [employer] Prescriptions Prescriptions: No Action oxycodone 5 mg tablet 5 - 10 mg PO Q6 PRN (Reason: pain) Qty: 40 0RF Rx Instructions: Take as needed for pain ondansetron 4 mg tablet,disintegrating 4 mg PO Q8 PRN (Reason: nausea) Qty: 20 1RF Rx Instructions: Take as needed for nausea ketorolac 10 mg tablet 10 mg PO Q6 5 Days Qty: 20 0RF Rx Instructions: Take 4 times per day with food for 5 days to lessen pain and swelling. sennosides [Senokot] 8.6 mg tablet 8.6 mg PO BID 14 Days Qty: 28 0RF Rx Instructions: Take two times a day to prevent/treat constipation acetaminophen [Tylenol Extra Strength] 500 mg tablet 1,000 mg PO TID 30 Days Qty: 180 0RF Rx Instructions: Take 3 times per day to lessen pain aspirin [Rebecca Low Dose Aspirin] 81 mg tablet,delayed release (DR/EC) 81 mg PO BID 45 Days Qty: 90 0RF Rx Instructions: Take to prevent blood clots. cefadroxil 500 mg capsule 500 mg PO BID 7 Days Qty: 14 0RF Rx Instructions: Take 1 cap twice a day to prevent infection tamsulosin [Flomax] 0.4 mg capsule 0.4 mg PO DAILY Qty: 7 0RF Rx Instructions: Begin night BEFORE surgery to prevent urinary retention atorvastatin 40 mg Tablet 40 mg PO QAM candesartan 32 mg Tablet 32 mg PO QAM fluticasone propionate 50 mcg/actuation spray,suspension 2 spray INTRANASAL QAM PRN (Reason: Allergy Symptoms) betamethasone dipropionate 0.05 % Cream 1 applic TOPICAL BID PRN (Reason: Skin Irritation) ezetimibe 10 mg tablet 10 mg PO QAM amlodipine 10 mg tablet 10 mg PO HS Qty: 30 0RF hydrochlorothiazide 25 mg Tablet 25 mg PO QAM Referrals Referrals: Len Banda MD [Primary Care Provider] -
[2024-01-01 22:30] LABS: Troponin I High Sensitivity 5.6 pg/ml (0-20)
[2024-01-01 22:31] LABS: INR 0.9 (0.9-1.1); Prothrombin Time 10.2 Seconds (9.0-12.0)
[2024-01-01 22:39] LABS: Thyroid Stimulating Hormone 5.687 uIu/ml (0.300-4.500)
[2024-01-01] MEDS: SODIUM CHLORIDE 0.9% 1,000 ML IV ONE (22:39)
[2024-01-01 23:15] LABS: T4 Free Thyroxine 0.84 ng/dl (0.61-1.60)
[2024-01-01] MEDS: OPTIRAY 320 125ml IV ONE (23:16)
--- NOTE | 2024-01-01 23:50 | CT Scan Report ---
Exam(s): CT HEAD Without Contrast EXAM: CT Head Without Intravenous Contrast CLINICAL HISTORY: Reason for exam: syncope. TECHNIQUE: Axial computed tomography images of the head/brain without intravenous contrast. CTDI is 36.9 mGy and DLP is 702.46 mGy-cm. Automated exposure control was utilized for the study. A dose lowering technique was utilized adhering to the principles of ALARA. COMPARISON: CT head: 04/12/2023 FINDINGS: Motion-induced image degradation. Brain: There is no acute intracranial hemorrhage, mass-effect or midline shift. Fortune-white matter differentiation is maintained. There is cerebral atrophy with widening of the extra-axial spaces and ventricular dilatation. Areas of decreased attenuation seen within the white matter tracts of the supratentorial brain, likely from chronic microvascular disease. Bones/joints: Unremarkable. No acute fracture. Soft tissues: Unremarkable. Sinuses: Moderately severe bilateral ethmoid sinusitis. Bilateral antrostomies. A small air-fluid level in right maxillary sinus/acute sinusitis. Residual small mucosal thickening of the left maxillary sinus. Mastoid air cells: Absence of right mastoid air cells. No left mastoid effusion. IMPRESSION: No acute intracranial abnormality noted. Increased dilatation of the supratentorial ventricles, question NPH in the appropriate clinical context. Chronic involutional and ischemic changes of the brain. Moderately severe bilateral ethmoid sinusitis. Right maxillary mild acute sinusitis . Electronically signed by: Ran Farrell MD, DELMERR 01/01/24 23:50 PM
--- NOTE | 2024-01-02 00:31 | History & Physical Report ---
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 on CT angio neck study last year) MEÑO status post surgery not on CPAP Hyperglycemia rule out DM Postop anemia, improving OBS Medical telemetry Check orthostatic vitals Baseline UA, monitor creatinine response to IVF hold ARB and HCTZ until creatinine back to baseline Cardiology consult Re: Recurrent syncope, history SCN [address] Repeat [address] head after 12 hours given head trauma Hold postop ASA prophylaxis until repeat CT head resulted Check hemoglobin A1c DVT prophylaxis. SCDs for now while aspirin on hold Full code Text document was generated using [employer] voice recognition software. It may contain grammatical or spelling errors. Kindly contact undersigned for clarification of any documentation item in question. History of Present Illness Chief Complaint: Syncope Primary Care Provider: Len Banda MD History obtained from patient and records. 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 Recent overnight confinement 10 days ago under Orthopedics service elective left total knee arthroplasty. Unremarkable postop course. Hemoglobin 11.5 at time of discharge. Patient had a witnessed syncopal event at home today. Was at the kitchen table with some friends when patient slumped over and fell out of the chair. No witnessed seizures but it seemed like patient was staring into space. No tongue biting or incontinence symptoms. Patient denies chest pain, SOB. He remembers a melting sensation prior to event. Admits to alcohol consumption but denies abuse. Thinks he might not have been drinking as much water as he should since leaving hospital after last surgery. Episode somewhat similar to March 2023 confinement for syncope attributed to orthostatic hypotension. Lowest SBP of 100s upon arrival at the ER. Medical History as above Surgical History : Appendectomy, sinus surgery, tonsillectomy/adenoidectomy, left tendon repair, uvulopalatopharyngoplasty, left knee surgery Family History : Heart disease, alcoholism Personal/Social history : Non-smoker, occasional alcohol intake denies abuse, retired gymnastics teacher Allergies Allergy/AdvReac Type Severity Reaction Status Date / Time pollen extracts Allergy Intermediate NASAL Verified 12/23/23 06:51 CONGESTION & DRAINAGE Home Medications Medication Instructions Recorded Confirmed Type atorvastatin 40 mg tablet 40 mg PO QAM 11/08/19 01/02/24 History candesartan 32 mg tablet 32 mg PO QAM 11/08/19 01/02/24 History fluticasone propionate 50 2 spray intranasal QAM PRN Allergy 11/16/21 01/02/24 History mcg/actuation nasal Symptoms spray,suspension betamethasone dipropionate 0.05 % 1 applic topical BID PRN Skin 04/12/23 01/02/24 History topical cream Irritation ezetimibe 10 mg tablet 10 mg PO QAM 04/12/23 01/02/24 History amlodipine 10 mg tablet 10 mg PO HS #30 tabs 04/13/23 01/02/24 Rx hydrochlorothiazide 25 mg tablet 25 mg PO QAM 08/13/23 01/02/24 History acetaminophen 500 mg tablet 1,000 mg (2 x 500 mg) PO TID pain 12/21/23 01/02/24 Rx (Tylenol Extra Strength) 30 days #180 tabs aspirin 81 mg tablet,delayed 81 mg PO BID 45 days #90 tabs 12/21/23 01/02/24 Rx release (Rebecca Low Dose Aspirin) ondansetron 4 mg disintegrating 4 mg PO Q8 PRN nausea #20 tabs 12/21/23 01/02/24 Rx tablet oxycodone 5 mg tablet 5 - 10 mg (1 - 2 x 5 mg) PO Q6 PRN 12/21/23 01/02/24 Rx pain #40 tabs sennosides 8.6 mg tablet (Senokot) 8.6 mg PO BID prevent constipation 12/21/23 01/02/24 Rx 14 days #28 tabs tamsulosin 0.4 mg capsule (Flomax) 0.4 mg PO DAILY #7 caps 12/21/23 01/02/24 Rx Past Med/Surg History Problem List (Updated 01/02/24 @ 00:25 by Tracie Da Silva MD) DARSHAN (acute kidney injury) (Acute) Syncope and collapse (Acute) Status post left knee replacement Left knee DJD Hypertension (Acute) Subacromial impingement of right shoulder DJD of right AC (acromioclavicular) joint Biceps tendinitis of right shoulder Complete rotator cuff tear or rupture of right shoulder, not specified as traumatic Encounter for pre-operative examination Medical History DJD (degenerative joint disease) MEÑO (obstructive sleep apnea) Post surgery- no device PVD (peripheral vascular disease) Per records TIA (transient ischemic attack) Per records 2013 - patient denies/has no recollection of TIA Hx of hepatitis at 21 yrs old, treated Seasonal allergies Hx of syncope (03/2023) x 2 episodes (08/2022 and 03/2023), r/t medications and "sitting too long on a bar stool, cutting off circulation"; no issues since med adjustment Vertebral artery stenosis Per 09/17/22 head CTA= Multifocal high-grade stenoses of the right vertebral and basilar arteries. Per inpatient neuro consult 09/20/22= "Vertigo in the setting of VBA stenosis and uncontrolled HTN. Given the relatively unchanged vascular stenosis, this is likely secondary to HTN... No further neurological work up, not a candidate for cerebrovascular surgical intervention. " Carotid stenosis Left > right side Per 09/17/22 neck CTA= <50% stenosis to ICAs History of kidney stones Hyperlipidemia Hypertension Surgical History History of arthroscopy of left shoulder Hx of sinus surgery (2022) nasal polyps History of arthroscopy of left shoulder History of colonoscopy 2018 History of appendectomy History of tonsillectomy Family History Other Heart disease Social History Smoking Status: Never smoker Second Hand Exposure: No; Do You Dip or Chew Tobacco: No; Hx Alcohol Use: Yes Alcohol type: wine Hx Substance Use: Yes Last Used Substance: Unknown Last Used Substance Other:: advised not to use prior to surgery Preferred Language: Burundian Communication Ability: Effective Visual Impairment: No Limitations [employer] Supervisor Required: No Beliefs That Will Affect Care: None Current Living Situation: Spouse and Family Current Living Situation Comment: Feels Safe at Home: Yes Safety Concerns: Feels Safe At This Time Assistive Devices: Glasses Review of Systems Review of Systems: As per HPI, all other systems reviewed and negative Physical Exam Physical Exam: GENERAL: Comfortable, pleasant, no respiratory distress SKIN: Pallor, warm HEENT: Pale palpebral conjunctivae, no ptosis, dry buccal mucosa NECK : Supple, no tenderness CHEST : CTA, no tenderness HEART : RRR, no obvious murmurs ABDOMEN: Some distention, nontender EXTREMITIES : Minimal LLE swelling, dressing over left knee with minimal tenderness, no other conspicuous deformities noted NEUROLOGIC : Coherent, no facial asymmetry, no other gross focality Results & Data Results & Data Vital Signs (Past 12 Hours) Vital Signs Temp Pulse Resp BP Pulse Ox O2 Del Method 01/01/24 23:00 67 20 122/58 L 98 01/01/24 22:00 60 18 109/51 L 92 01/01/24 21:41 95 Room Air 01/01/24 21:39 60 01/01/24 21:30 36.8 C 57 L 18 116/55 L 95 Room Air Laboratory Results Laboratory Results WBC 15.40 K/ul (4.8-10.8) H 01/01/24 21:30 RBC 4.12 M/uL (4.70-6.10) L 01/01/24 21:30 Hgb 12.3 g/dl (14.0-18.0) L 01/01/24 21:30 Hct 36.3 % (42.0-52.0) L 01/01/24 21:30 MCV 88.1 fL (80.0-100.0) 01/01/24 21:30 MCH 29.9 pg (25.0-34.0) 01/01/24 21:30 MCHC 33.9 g/dL (32.0-36.0) 01/01/24 21:30 RDW Std Deviation 38.8 fL (36.4-46.3) 01/01/24 21:30 RDW Coeff of Nicolás 12.0 % (11.5-14.5) 01/01/24 21:30 Plt Count 398 K/uL (130-400) 01/01/24 21:30 MPV 9.9 fL (9.4-12.4) 01/01/24 21:30 Immature Gran % (Auto) 1.8 % 01/01/24 21:30 Neut % (Auto) 67.2 % 01/01/24 21:30 Lymph % (Auto) 19.3 % 01/01/24 21:30 Young % (Auto) 6.2 % 01/01/24 21:30 Eos % (Auto) 4.7 % 01/01/24 21:30 Baso % (Auto) 0.8 % 01/01/24 21:30 Neut # (Auto) 10.35 K/uL (1.40-6.50) H 01/01/24 21:30 Lymph # (Auto) 2.97 K/uL (1.20-3.40) 01/01/24 21:30 Young # (Auto) 0.96 K/uL (0.11-0.59) H 01/01/24 21:30 Eos # (Auto) 0.72 K/uL (0.00-0.50) H 01/01/24 21:30 Baso # (Auto) 0.13 K/uL (0.00-0.20) 01/01/24 21:30 Immature Gran # (Auto) 0.27 K/uL (0.01-0.20) H 01/01/24 21:30 PT 10.2 Seconds (9.0-12.0) 01/01/24 21:30 INR 0.9 (0.9-1.1) 01/01/24 21:30 Sodium 134 mmol/L (136-145) L 01/01/24 21:30 Potassium 4.2 mmol/L (3.5-5.1) 01/01/24 21:30 Chloride 99 mmol/L (98-107) 01/01/24 21:30 Carbon Dioxide 22 mmol/L (21-32) 01/01/24 21:30 Anion Gap 13 (3-11) H 01/01/24 21:30 BUN 39 mg/dl (6-23) H 01/01/24 21:30 Creatinine 1.44 mg/dl (0.6-1.4) H 01/01/24 21:30 Est Cr Clr Drug Dosing 47.0 ml/min 01/01/24 21:30 eGFR 50.36 01/01/24 21:30 BUN/Creatinine Ratio 27.1 (10-20) H 01/01/24 21:30 Glucose 170 mg/dl (70-99(Fasting)) H 01/01/24 21:30 Calcium 9.1 mg/dl (8.6-10.3) 01/01/24 21:30 Magnesium 2.3 mg/dl (1.7-2.4) 01/01/24 21:30 Total Bilirubin 1.4 mg/dl (0.2-1.0) H 01/01/24 21:30 AST 24 U/L (13-39) 01/01/24 21:30 ALT 31 U/L (7-52) 01/01/24 21:30 Alkaline Phosphatase 77 U/L (34-104) 01/01/24 21:30 Troponin I High Sens 5.6 pg/ml (0-20) 01/01/24 21:30 Total Protein 7.2 gm/dl (6.0-8.3) 01/01/24 21:30 Albumin 4.2 gm/dl (3.4-5.0) 01/01/24 21:30 Globulin 3.0 gm/dl (2.5-4.0) 01/01/24 21:30 Albumin/Globulin Ratio 1.4 (0.9-2) 01/01/24 21:30 Lipase 45 U/L (11-82) 01/01/24 21:30 TSH 5.687 uIu/ml (0.300-4.500) H 01/01/24 21:30 Free T4 0.84 ng/dl (0.61-1.60) 01/01/24 21:[address] 01/01/24 21:52 Exam(s): CT HEAD Without Contrast EXAM: CT Head Without Intravenous Contrast CLINICAL HISTORY: Reason for exam: syncope. TECHNIQUE: Axial computed tomography images of the head/brain without intravenous contrast. CTDI is 36.9 mGy and DLP is 702.46 mGy-cm. Automated exposure control was utilized for the study. A dose lowering technique was utilized adhering to the principles of ALARA. COMPARISON: CT head: 04/12/2023 FINDINGS: Motion-induced image degradation. Brain: There is no acute intracranial hemorrhage, mass-effect or midline shift. Fortune-white matter differentiation is maintained. There is cerebral atrophy with widening of the extra-axial spaces and ventricular dilatation. Areas of decreased attenuation seen within the white matter tracts of the supratentorial brain, likely from chronic microvascular disease. Bones/joints: Unremarkable. No acute fracture. Soft tissues: Unremarkable. Sinuses: Moderately severe bilateral ethmoid sinusitis. Bilateral antrostomies. A small air-fluid level in right maxillary sinus/acute sinusitis. Residual small mucosal thickening of the left maxillary sinus. Mastoid air cells: Absence of right mastoid air cells. No left mastoid effusion. IMPRESSION: No acute intracranial abnormality noted. Increased dilatation of the supratentorial ventricles, question NPH in the appropriate clinical context. Chronic involutional and ischemic changes of the brain. Moderately severe bilateral ethmoid sinusitis. Right maxillary mild acute sinusitis . Electronically signed by: Ran Farrell MD, DABR 01/01/24 23:[address] chest: No pulmonary embolism noted to the level of the segmental branches. No aortic aneurysm or dissection. Mild/moderate cardiomegaly. Mild/moderate bronchial wall thickening. Centrilobular emphysema. Bibasilar linear atelectatic changes and posteriorly subpleural mild chronic reticular interstitial thickening. No consolidation. Redemonstrates a moderately large size hiatal hernia predominantly containing mesenteric fat and nonspecific small paraesophageal lymph nodes. Also again noted in hiatal hernia along the right side descending aorta a 3.9 x 2.5 x 1.7 cm nonspecific well-defined fluid density structure. Diagnostic Findings EKG as per my interpretation :Rate 65, NSR, LAD, LAFB, no ischemia
[2024-01-02] MEDS ORDERED: PROMETHAZINE 6.25 MG/50.25 ML BAG IV PRN (00:33)
[2024-01-02] MEDS ORDERED: oxyCODONE HCL IR 5 MG TAB (IMMEDIATE RELEASE) PO PRN (00:33)
[2024-01-02] MEDS: SODIUM CHLORIDE 0.9% 1,000 ML IV ONE (00:53)
[2024-01-02 01:15] LABS: Appearance Urine Clear (Clear); Bilirubin Urine Negative (Negative); Blood Urine Negative (Negative); Color Urine Yellow; Glucose Urine UA Negative (Negative); Ketones Urine Negative (Negative); Leukocyte Esterase Urine Negative (Negative); Nitrite Urine Negative (Negative); Protein Urine Negative (Negative); Specific Gravity Urine 1.045 (1.000-1.030); Urobilinogen Urine Negative (Negative)
--- NOTE | 2024-01-02 03:21 | CT Scan Report ---
Exam(s): CTA CHEST IV Amt: cc EXAM: CT Angiography Chest With Intravenous Contrast CLINICAL HISTORY: Reason for exam: PE; syncope. TECHNIQUE: Axial computed tomographic angiography images of the chest with intravenous contrast. CTDI is 26.35 mGy and DLP is 850.78 mGy-cm. Automated exposure control was utilized for the study. A dose lowering technique was utilized adhering to the principles of ALARA. MIP reconstructed images were created and reviewed. COMPARISON: CTA chest: 11/17/2021 FINDINGS: Motion-induced image degradation and suboptimal IV contrast bolus timings limits diagnostic sensitivity of the exam. Pulmonary arteries: No pulmonary embolism to the level of the segmental arterial branches. Distally evaluation is suboptimal due to technical factors. Aorta: No acute findings. No thoracic aortic aneurysm. Heart: Mild/moderate cardiomegaly. No significant pericardial effusion. No evidence of RV dysfunction. Lungs: Central airways are patent. Mild/moderate bronchial wall thickening. Centrilobular emphysema. Bibasilar linear areas of atelectasis and posteriorly subpleural chronic mild reticular interstitial thickening. No mass. No consolidation. Pleural space: Unremarkable. No significant effusion. No pneumothorax. Bones/joints: No acute fracture. No dislocation. Osteopenia. Mid/lower thoracic chronic appearing mild vertebral compression deformities. Moderate degenerative spondylitic changes. Increased kyphosis. Soft tissues: Redemonstrates a moderate size hiatal hernia containing predominantly mesenteric fat and paraesophageal lymph nodes. Along the right para-aortic region of the hiatal hernia a 3.9 x 2.5 x 1.7 cm well- defined fluid density structure also again noted (series 601 image 58, series 6 image 67).. Lymph nodes: Multiple small mediastinal and hilar lymph nodes. No lymphadenopathy by CT size criteria. Other findings: Right hepatodiaphragmatic interposition of the colon with increased stool. A distended stomach filled with ingested food debris/gas. . IMPRESSION: No pulmonary embolism noted to the level of the segmental branches. No aortic aneurysm or dissection. Mild/moderate cardiomegaly. Mild/moderate bronchial wall thickening. Centrilobular emphysema. Bibasilar linear atelectatic changes and posteriorly subpleural mild chronic reticular interstitial thickening. No consolidation. Redemonstrates a moderately large size hiatal hernia predominantly containing mesenteric fat and nonspecific small paraesophageal lymph nodes. Also again noted in hiatal hernia along the right side descending aorta a 3.9 x 2.5 x 1.7 cm nonspecific well-defined fluid density structure. . Electronically signed by: Ran Farrell MD, DELMERR 01/02/24 03:20 AM
[2024-01-02] MEDS: ACETAMINOPHEN 500 MG TAB PO SCH (05:56)
[2024-01-02 06:19] LABS: Basophils # (auto) 0.08 K/uL (0.00-0.20); Basophils % (auto) 0.5 %; Eosinophils # (auto) 0.47 K/uL (0.00-0.50); Eosinophils % (auto) 3.2 %; Hematocrit (blood only) 38.3 % (42.0-52.0); Hemoglobin 12.9 g/dl (14.0-18.0); Immature Granulocytes # (auto) 0.16 K/uL (0.01-0.20); Immature Granulocytes % (auto) 1.1 %; Lymphocytes # (auto) 2.17 K/uL (1.20-3.40); Lymphocytes % (auto) 14.8 %; Mean Corpuscular Hemoglobin 29.8 pg (25.0-34.0); Mean Corpuscular Hgb Conc 33.7 g/dL (32.0-36.0); Mean Corpuscular Volume 88.5 fL (80.0-100.0); Mean Platelet Volume 9.1 fL (9.4-12.4); Monocytes # (auto) 1.03 K/uL (0.11-0.59); Neutrophils % (auto) 73.4 %; Platelet Count 339 K/uL (130-400); RDW Standard Deviation 38.4 fL (36.4-46.3); Red Blood Count 4.33 M/uL (4.70-6.10); White Blood Count 14.71 K/ul (4.8-10.8)
[2024-01-02 06:29] LABS: BUN Creatinine Ratio 33.6 (10-20); Calcium 8.9 mg/dl (8.6-10.3); Creatinine Clr Calc Pharmacy 60.4 ml/min; Potassium 4.3 mmol/L (3.5-5.1)
--- NOTE | 2024-01-02 07:03 | XRay Report ---
XR chest 1V portable HISTORY: 78 years-old Male syncope COMPARISON: CT chest 01/01/2024 TECHNIQUE: AP view of the chest FINDINGS: Cardiac silhouette is normal. No pneumothorax, pleural effusion, airspace consolidation or pulmonary edema. Degenerative changes of the shoulders and spine. Small hiatal hernia. Widening of the right AC joint. Bones appear grossly intact. IMPRESSION: No acute process. ACT 112: Negative or not required by law. The above report was generated using voice recognition software. It may contain grammatical, syntax o r spelling errors. Electronically signed by: Fernie Ocampo M.D. 01/02/2024 7:01 AM
[2024-01-02 07:32] LABS: Estimated Average Glucose 117 mg/dl; Hemoglobin A1C 5.7 % (4.5-5.6)
[2024-01-02] MEDS: ATORVASTATIN 40 MG TAB PO SCH (08:15)
[2024-01-02] MEDS: TAMSULOSIN HCL 0.4 MG CAP PO SCH (08:15)
[2024-01-02] MEDS: EZETIMIBE 10 MG TAB PO SCH (08:15)
--- NOTE | 2024-01-02 08:45 | Cardiology Consultation ---
Date of Consultation January 02, 2024 Assessment & Plan (1) Syncope and collapse: (2) DARSHAN (acute kidney injury): (3) Status post left knee replacement: (4) Carotid stenosis: (5) Monoallelic mutation of SCN5A gene: Plan Patient admitted with recurrent syncopal episode. Head CT negative. Etiology uncertain, but possibly due to dehydration/volume depletion in setting of post op knee, possible opioid and alcohol consumption. Chest CTA was negative for PE. Lower BP on arrival with DARSHAN. IV fluids administered and BP and renal function improved this morning. No recurrent symptoms. Would stop HCTZ given issues with recurrent dehydration. Continue amlodipine for antihypertensive and if needed would consider MARIBEL/ARB initiation. He does have genetic variant of the SCN5A gene which potentially predisposes him to arrhythmias, prolonged QT intervals. QT interval was normal on admission. He was to have outpatient ZIO monitor placed after last syncopal event, but this was not done. Would consider ZIO monitor and possible implantable loop recorder as outpatient. WBC was elevated post op and remains elevated on admission. No obvious source of infection. On chest CTA there was mention of fluid filled soft tissue abnormality near the descending aorta measuring 3.9 x 2.5 x 1.7 cm. Hospitalist to discuss with radiology. He also has a history of left sided carotid stenosis and right sided vertebral artery stenosis on past imaging Last neck CTA was August 2022. He was to have yearly follow up with vascular surgery in the past, but this was not done Would recommend repeat imaging prior to discharge. Discussed with hospitalist. At this time, no cardiac etiology has been found for his syncope, but would recommend monitoring for arrhythmias as an outpatient. ZIO to be arranged and possible EP appt to discuss loop recorder insertion given his genetic mutation potentially predisposing him to arrhythmias. Case discussed with Dr. Puma Copeland spent a total of 50 minutes on the date of service in preparation, delivery, and documentation of the care provided to this patient, excluding any time spent in the performance of separately billed services. Tammy Daley PA-C Department of Cardiology, [facility] This chart was completed in part utilizing Speech Voice Recognition Software. Grammatical errors, random word insertions, pronoun errors, and incomplete sentences are an occasional consequence of this system due to software limitations, ambient noise, and hardware issues. Any formal questions or concerns about the content, text, or information contained within the body of this dictation should be directly addressed to the provider for clarification. Supervising Physician Co-Signing Physician Notes Patient was seen and personally examined. Inpatient and prior outpatient records fully reviewed. Assessment and plan as outlined above with care and management discussed and personally endorsed Patient referred for evaluation of recurrent syncope. Episode occurred in March 2023 after standing up from a barstool. Attributed to dehydration and orthostasis Presents now with syncope at rest witnessed with transient loss of consciousness. Initially hypotensive on ER presentation Suspect multifactorial contributing effects with recent knee surgery noted. Historically suggestive of vasovagal/orthostasis events Prior to incidentally noted SCN5A genetic mutation on MYCODE testing Current and past EKGs reviewed. No findings to suggest Brugada or prolonged QT on any study including admission tracings Plan as above I spent a total of 30 minutes on the date of service in preparation, delivery, and documentation of the care provided to this patient, excluding any time spent in the performance of separately billed services. This chart was completed in part utilizing Speech Voice Recognition Software. Grammatical errors, random word insertions, pronoun errors, and incomplete sentences are an occasional consequence of this system due to software limitations, ambient noise, and hardware issues. Any formal questions or concerns about the content, text, or information contained within the body of this dictation should be directly addressed to the provider for clarification. History of Present Illness Reason for Consultation: Syncope Requesting Physician: Candy armas Attending Physician: Dr. Bartholomew History of Present Illness Patient is a 78 year old male admitted to [facility] last evening after a syncopal episode at home. Per admission records, patient was sitting at a table and slummed forward and fell out of his chair. No seizure like activity. No incontinence. EMS was summoned and patient brought to ER for evaluation. History includes: 1. Carotid stenosis, Left > Right. [place] [facility] [place] appt in records was in [place]. Last duplex in 2020 -Left carotid 70-99%. Per head/neck CTA in August 2022: Multifocal high-grade stenoses of the right vertebral and basilar arteries. Less than 50% stenosis of the internal carotid arteries? 2. Hypertension 3. dyslipidemia 4. Prior syncopal spell in Mar 2023 -etiology uncertain - possible orthostatic hypotension. Was to have f/u ZIO monitor as outpatient by PCP but not completed or returned. 5. Variant of the SCN5A gene - increased risk of arrhythmias (risk of possible prolonged QT and Brugada as well) Per patient, he was feeling well leading up to event last night. He admits to poor p.o. intake of water. He had had 1 glass of wine.No recent chest pain or unusual shortness of breath. He reports this is the third episode2 years of syncope without known cause. Prior episodes were thought to be related to dehydration/orthostasis. His blood pressure was borderline low on arrival. Kidney function consistent with dehydration. He takes hydrochlorothiazide on a chronic basis. He was treated with fluids in the ER. Renal function and BP improved. HCTZ held. HS troponin negative. EKG demonstrating NSR without ischemic changes. He also had recent knee replacement surgery last week. He is taking pain medication at home (he can't recall the name). Chest CTA was negative for PE on admission. Also noted to have soft tissue density. Hospitalist to discuss further with radiology WBC was elevated on arrival, was also elevated after recent surgery. BP trending higher this morning. At time of consult, patient resting in bed feeling well. Denies acute complaints. No recurrent dizziness/syncope or near syncope since arrival. No chest pain or dyspnea. Allergies Allergy/AdvReac Type Severity Reaction Status Date / Time pollen extracts Allergy Intermediate NASAL Verified 12/23/23 06:51 CONGESTION & DRAINAGE Home Medications Medication Instructions Recorded Confirmed Type atorvastatin 40 mg tablet 40 mg PO QAM 11/08/19 01/02/24 History candesartan 32 mg tablet 32 mg PO QAM 11/08/19 01/02/24 History fluticasone propionate 50 2 spray intranasal QAM PRN Allergy 11/16/21 01/02/24 History mcg/actuation nasal Symptoms spray,suspension betamethasone dipropionate 0.05 % 1 applic topical BID PRN Skin 04/12/23 01/02/24 History topical cream Irritation ezetimibe 10 mg tablet 10 mg PO QAM 04/12/23 01/02/24 History amlodipine 10 mg tablet 10 mg PO HS #30 tabs 04/13/23 01/02/24 Rx hydrochlorothiazide 25 mg tablet 25 mg PO QAM 08/13/23 01/02/24 History acetaminophen 500 mg tablet 1,000 mg (2 x 500 mg) PO TID pain 12/21/23 01/02/24 Rx (Tylenol Extra Strength) 30 days #180 tabs aspirin 81 mg tablet,delayed 81 mg PO BID 45 days #90 tabs 12/21/23 01/02/24 Rx release (Rebecca Low Dose Aspirin) ondansetron 4 mg disintegrating 4 mg PO Q8 PRN nausea #20 tabs 12/21/23 01/02/24 Rx tablet oxycodone 5 mg tablet 5 - 10 mg (1 - 2 x 5 mg) PO Q6 PRN 12/21/23 01/02/24 Rx pain #40 tabs sennosides 8.6 mg tablet (Senokot) 8.6 mg PO BID prevent constipation 12/21/23 01/02/24 Rx 14 days #28 tabs tamsulosin 0.4 mg capsule (Flomax) 0.4 mg PO DAILY #7 caps 12/21/23 01/02/24 Rx Patient History Medical History DJD (degenerative joint disease) MEÑO (obstructive sleep apnea) Post surgery- no device PVD (peripheral vascular disease) Per records TIA (transient ischemic attack) Per records 2013 - patient denies/has no recollection of TIA Hx of hepatitis at 21 yrs old, treated Seasonal allergies Hx of syncope (03/2023) x 2 episodes (08/2022 and 03/2023), r/t medications and "sitting too long on a bar stool, cutting off circulation"; no issues since med adjustment Vertebral artery stenosis Per 09/17/22 head CTA= Multifocal high-grade stenoses of the right vertebral and basilar arteries. Per inpatient neuro consult 09/20/22= "Vertigo in the setting of VBA stenosis and uncontrolled HTN. Given the relatively unchanged vascular stenosis, this is likely secondary to HTN... No further neurological work up, not a candidate for cerebrovascular surgical intervention. " Carotid stenosis Left > right side Per 09/17/22 neck CTA= <50% stenosis to ICAs History of kidney stones Hyperlipidemia Hypertension Surgical History History of arthroscopy of left shoulder Hx of sinus surgery (2022) nasal polyps History of arthroscopy of left shoulder History of colonoscopy 2018 History of appendectomy History of tonsillectomy Family History Other Heart disease Social History Smoking Status: Never smoker Second Hand Exposure: No; Do You Dip or Chew Tobacco: No; Hx Alcohol Use: Yes Alcohol type: wine Hx Substance Use: Yes Last Used Substance: Unknown Last Used Substance Other:: advised not to use prior to surgery Preferred Language: [place] Communication Ability: Effective Visual Impairment: No Limitations Supply Room Clerk Required: No Beliefs That Will Affect Care: None Current Living Situation: Spouse and Family Current Living Situation Comment: Feels Safe at Home: Yes Safety Concerns: Feels Safe At This Time Assistive Devices: Walker Review of Systems Review of Systems: All systems reviewed & are unremarkable except as noted in HPI & below Physical Exam Constitutional: WD/WN, vitals as above no acute distress Neck: normal visual inspection Left sided carotid bruit Cardiovascular: Rate/Rhythm: regular rate and regular rhythm Heart Sounds: normal S1 and normal S2; no murmur Vessels: no JVD Extremities: no edema Gastrointestinal (Abdomen): normal bowel sounds, soft, nontender, no hepatosplenomegaly Neurologic: PERRL, EOMI, accommodation nl, no face palsy, no dysarthria Psychiatric: A+Ox3, euthymic affect Results & Data Vital Signs (Past 12 Hours) Vital Signs Temp Pulse Pulse Resp BP BP Pulse Ox 01/02/24 07:13 64 01/02/24 07:12 36.5 C 58 L 18 131/75 95 01/02/24 07:00 64 01/02/24 03:26 67 01/02/24 03:18 01/02/24 03:11 36.6 C 64 16 138/74 97 01/02/24 02:15 65 18 124/64 94 01/02/24 01:30 65 18 120/58 L 95 01/02/24 01:00 63 18 112/55 L 95 01/02/24 00:30 67 18 121/56 L 95 01/02/24 00:00 66 18 125/57 L 96 01/01/24 23:27 67 21 98 01/01/24 23:00 67 20 122/58 L 98 01/01/24 22:00 60 18 109/51 L 92 01/01/24 21:41 95 01/01/24 21:39 60 01/01/24 21:30 36.8 C 57 L 18 116/55 L 95 O2 Del Method 01/02/24 07:13 01/02/24 07:12 Room Air 01/02/24 07:00 01/02/24 03:26 01/02/24 03:18 Room Air 01/02/24 03:11 Room Air 01/02/24 02:15 Room Air 01/02/24 01:30 01/02/24 01:00 01/02/24 00:30 01/02/24 00:00 01/01/24 23:27 01/01/24 23:00 01/01/24 22:00 01/01/24 21:41 Room Air 01/01/24 21:39 01/01/24 21:30 Room Air Laboratory Results Cardiac Enzymes 01/01/24 Range/Units 21:30 AST 24 (13-39) U/L Troponin I High Sens 5.6 (0-20) pg/ml Coagulation 01/01/24 Range/Units 21:30 PT 10.2 (9.0-12.0) Seconds CBC 01/01/24 01/02/24 Range/Units 21:30 05:38 WBC 15.40 H 14.71 H (4.8-10.8) K/ul RBC 4.12 L 4.33 L (4.70-6.10) M/uL Hgb 12.3 L 12.9 L (14.0-18.0) g/dl Hct 36.3 L 38.3 L (42.0-52.0) % Plt Count 398 339 (130-400) K/uL Neut # (Auto) 10.35 H 10.80 H (1.40-6.50) K/uL Lymph # (Auto) 2.97 2.17 (1.20-3.40) K/uL [place] # (Auto) 0.96 H 1.03 H (0.11-0.59) K/uL Eos # (Auto) 0.72 H 0.47 (0.00-0.50) K/uL Baso # (Auto) 0.13 0.08 (0.00-0.20) K/uL Comprehensive Metabolic Panel 01/01/24 01/02/24 Range/Units 21:30 05:38 Sodium 134 L 136 (136-145) mmol/L Potassium 4.2 4.3 (3.5-5.1) mmol/L Chloride 99 106 (98-107) mmol/L Carbon Dioxide 22 21 (21-32) mmol/L BUN 39 H 37 H (6-23) mg/dl Creatinine 1.44 H 1.10 D (0.6-1.4) mg/dl Glucose 170 H 96 (70-99(Fasting)) mg/dl Calcium 9.1 8.9 (8.6-10.3) mg/dl AST 24 (13-39) U/L ALT 31 (7-52) U/L Alkaline Phosphatase 77 (34-104) U/L Total Protein 7.2 (6.0-8.3) gm/dl Albumin 4.2 (3.4-5.0) gm/dl Intake and Output 01/01/24 01/02/24 01/02/24 22:59 06:59 14:59 Intake Total 500 / 1600 1100 / 1600 1000 / 1000 Balance 500 / 1600 1100 / 1600 1000 / 1000 Intake: IV 500 / 1500 1000 / 1500 1000 / 1000 Sodium Chloride 0.9% 1,000 ml @ 1000 / 1000 1000 / 1000 100 mls/hr IV .Q10H ONE Rx#: [id number] Left Forearm 500 / 500 Oral 100 / 100 Other: Weight 87.9 kg 84.2 kg Weight Measurement Method Built in Bedscale Standing Scale Diagnostic Findings Telemetry reviewed: NSR in the 60s. No pauses or high degree AV block. No symptomatic bradycardia. No tachyarrhythmias EKG reviewed from admission: NSR at 63 bmp LAD No acute ischemic changes QT/QTc 432/442 ms Chest CTA 01/01/24 21:52 IMPRESSION: No pulmonary embolism noted to the level of the segmental branches. No aortic aneurysm or dissection. Mild/moderate cardiomegaly. Mild/moderate bronchial wall thickening. Centrilobular emphysema. Bibasilar linear atelectatic changes and posteriorly subpleural mild chronic reticular interstitial thickening. No consolidation. Remonstrates a moderately large size hiatal hernia predominantly containing mesenteric fat and nonspecific small paraesophageal lymph nodes. Also again noted in hiatal hernia along the right side descending aorta a 3.9 x 2.5 x 1.7 cm nonspecific well-defined fluid density structure. Chest X-Ray 01/01/24 21:52 IMPRESSION: No acute process. Electronically signed by: Fernie Ocampo M.D. 01/02/2024 7:[address] 01/02/24 11:00 IMPRESSION: 1. No acute intracranial findings. 2. No calvarial fracture. 3. Sinus mucosal thickening with air-fluid levels, as described above Electronically signed by: Mati Fitzgerald M.D. 01/02/2024 11:18 AM Prior echo reviewed from Mar 2023: LVEF is normal at 65-70% normal wall motion Trace MR Trace TR no pulm hypertension Medications Administered Current Inpatient Medications Acetaminophen (Acetaminophen 325 Mg Tab) 650 mg PO QID PRN PRN Reason: pain/fever Stop: 02/01/24 00:32 Acetaminophen (Acetaminophen 500 Mg Tab) 1,000 mg PO Q8 GOLD Stop: 02/01/24 05:59 Last Admin: 01/02/24 05:56 Dose: Not Given Amlodipine Besylate (Amlodipine Besylate 5 Mg Tab) 10 mg PO HS GOLD Stop: 02/01/24 20:59 Aspirin (Aspirin 81 Mg Ectab) 81 mg PO BID GOLD Stop: 02/01/24 08:59 Atorvastatin Calcium (Atorvastatin 40 Mg Tab) 40 mg PO QAM GOLD Stop: 02/01/24 08:59 Last Admin: 01/02/24 08:15 Dose: 40 mg Ezetimibe (Ezetimibe 10 Mg Tab) 10 mg PO QAM GOLD Stop: 02/01/24 08:59 Last Admin: 01/02/24 08:15 Dose: 10 mg Promethazine HCl (Phenergan) 6.25 mg in 50.25 mls @ 201 mls/hr IV Q6H PRN PRN Reason: Nausea And Vomiting Stop: 02/01/24 00:32 Oxycodone HCl (Oxycodone Hcl Ir 5 Mg Tab (Immediate Release)) 5 - 10 mg PO QID PRN PRN Reason: Pain Stop: 01/16/24 00:32 Tamsulosin HCl (Tamsulosin Hcl 0.4 Mg Cap) 0.4 mg PO DAILY GOLD Stop: 02/01/24 08:59 Last Admin: 01/02/24 08:15 Dose: 0.4 mg
--- OUTSIDE RECORDS SUMMARY | 2024-01-02 10:09 | External Medical Summary | Summary of Care ---
Author Name Unknown Organization [facility] Address [address] [facility] [address] Phone [phone] Care Team Providers Care Greenhouse Superintendent Name Role Phone Veronika GAVIN MD, Len Patino Primary Care Provider [phone] Reason for Visit * Reason Onset Date Comments Hospital Follow-Up 12/25/2023 NEMESIO Encounter Details Date Type Department Care Team (Late st Contact Info) Description 12/25/2023 Telephone Family Practice [facility] [place] [address] [facility] [place] [address] Len Banda III, MD [address] [place] [address] Hospital Follow-Up (NEMESIO) Allergies Active Allergy Reactions Criticality Noted Date Comments Pollen Other (Please comment) 09/17/2022 Nasal congestion and drainage documented as of this encounter (statuses as of 12/25/2023) Medications Medication Sig Dispensed Refills Start Date End Date Status betamethasone dipropionate (DIPROSONE) 0.05 % creamIndications:Ot her atopic dermatitis and related conditions Apply topically to affected area 2 times a day. To affected area. 45 g 3 11/25/2016 Active Fluticasone Propionate 50 MCG/ACT Nasal Suspension (Flonase)Indication s:Seasonal allergic rhinitis due to pollen Administer into each nostril 2 Sprays in the morning. 16 g 2 01/10/2022 Active Ipratropium Marion 0.03 % Nasal Solution (Atrovent) Administer 2 Sprays into each nostril 2 times a day as needed for Rhinitis. 90 mL 3 08/12/2022 Active Additional Information Patient not taking.Informant: Patient, Reported on 07/22/2023 Butalbital-Aspirin- Caffeine 50-325-40 MG Oral Capsule Take 1 Capsule by mouth every 4 hours as needed for Pain, Moderate. 30 Capsule 09/24/2022 Active Meclizine HCl 25 MG Oral Tablet (Antivert)Indicatio ns:Benign paroxysmal vertigo of right ear Take 1 Tablet by mouth 3 times a day as needed for Dizziness. 30 Tablet 1 01/15/2023 Active Additional Information Patient not taking.Informant: Patient, Reported on 07/22/2023 amLODIPine Besylate 10 MG Oral Tablet (Norvasc) TAKE 1 TABLET BY MOUTH EVERY DAY 90 Tablet 3 05/08/2023 Active Candesartan Cilexetil 32 MG Oral Tablet (Atacand)Indication s:HTN, goal below 140/90 Take 1 Tablet by mouth in the morning. 90 Tablet 3 06/02/2023 Active Ezetimibe 10 MG Oral Tablet (Zetia) TAKE 1 TABLET BY MOUTH EVERY DAY IN THE MORNING 90 Tablet 3 06/02/2023 Active hydroCHLOROthiazide 25 MG Oral Tablet (Hydrodiuril)Indica tions:HTN, goal below 140/90 Take 0.5 Tablets by mouth in the morning. 45 Tablet 3 06/02/2023 Active Atorvastatin Calcium 40 MG Oral Tablet (Lipitor)Indication s:HTN, goal below 140/90,Carotid stenosis, left,Hyperlipidemia with target low density lipoprotein (LDL) cholesterol less than 100 mg/dL TAKE 1 TABLET BY MOUTH EVERY DAY IN THE MORNING 90 Tablet 3 06/02/2023 Active documented as of this encounter (statuses as of 12/25/2023) Active Problems Problem Noted Date Diagnosed Date Monoallelic mutation of SCN5A gene 01/26/2019 Overview: pathogenic SCN5A gene variant ([id number], p.[id number]) detected via [employer]. Increased risk for Inherited Arrhythmias. Carotid stenosis, left 06/11/2013 Hyperlipidemia with target LDL less than 100 Overview: ICD-10 update of inactive term HTN, goal below 140/90 06/11/2013 documented as of this encounter (statuses as of 12/25/2023) Resolved Problems Problem Noted Date Diagnosed Date Resolved Date TIA (transient ischemic attack) 06/24/2013 11/25/2016 Other atopic dermatitis 01/15/201006/2018 Overview: ICD-10 update of inactive term Sleep apnea 09/02/2008 11/25/2016 Family history of ischemic heart disease 12/11/2007 11/25/2016 Family history of GI malignancy 12/11/2007 11/25/2016 documented as of this encounter (statuses as of 12/25/2023) Immunizations Name Administration Dates Next Due Covid-19, Mrna, Lnp-s, Pf, B ivalent, 30 Mcg, IM, 12 yrs and above (Pfizer) 01/09/2022 Pneumococcal Conjugate Vacc, 13 Valent (Prevnar) 01/31/2015 Pneumococcal Polysaccharide PPV23 (Pneumovax) 11/25/2016 Seasonal Influenza, PF, 6 M & above, IM , (FluLaval or Fluzone) 12/02/2018,04/21/2017 Seasonal Influenza, Quadriva lent Hd (Fluzone Hd) 01/15/2023,12/28/2021,03/22/2021 Seasonal Influenza, Quadriva lent, No Preserve, IM 01/31/2015 TD - Tetanus/Diptheria (ADULT) 02/27/2013 TDAP, Age 7 and older, IM (Adacel) 01/06/2008 Varicella Zoster Vaccine (Adult) 03/12/2013 Zoster [...] money to get more. Never true 09/24/2022 Childcare Answer Date Recorded Do you feel overwhelmed with taking care of a child, family member or friend? No 09/24/2022 Does your family need help f inding childcare? (Household - for ages 0-17 years) Not on file 09/24/2022 Clothing Answer Date Recorded Have you been unable to get clothing when it was really needed? No 09/24/2022 Is your family able to get c lothes or diapers when needed? (Household - for ages 0-17 years) Not on file 09/24/2022 Personal Safety Answer Date Recorded Do you feel unsafe or have concerns for your saf ety? No 09/24/2022 Do you have concerns for you r family's safety? (Household - for ages 0-17 years) Not on file 09/24/2022 Utilities Answer Date Recorded Do you have trouble paying y our heating, water, or electric bill? (Adult - for ages 18 years and over) Not on file 09/29/2023 Is your family able to pay t he heat, water, or electric bill? (Household - for ages 0-17 years) Not on file 09/29/2023 Does your family have access to good internet? (Household - for ages 0-17 years) Not on file 09/29/2023 Employment Status Answer Date Recorded Are you unemployed or without regular income? No 09/24/2022 Does the household have a re gular source of income? (Household - for ages 0-17 years) Not on file 09/24/2022 Social Connections Answer Date Recorded How often do you feel lonely or isolated from those around you? (Adult - for ages 18 years and over) Not on file 09/29/2023 Financial Resource Strain Answer Date R ecorded Do you have any trouble payi ng for your medications, or do you think you might in the future? No 09/24/2022 Does your family have troubl e paying for medicine? (Household - for ages 0-17 years) Not on file 09/24/2022 Transportation Needs Answer Date Record ed READ ONLY Do you have troubl e getting a ride to medical visits or work? Never True 09/24/2022 Does your family have a hard time getting a ride to doctors visits? (Household - for ages 0-17 years) Not on file 09/24/2022 Has lack of transportation k ept you from medical appointments, meetings, work, or from getting things needed for daily living? Check all that apply. (Adult - for ages 18 years and over) Not on file 09/24/2022 Do you (or your family) have trouble finding or paying for a ride (transportation)? (Household - for ages 0-17 years) Not on file 09/24/2022 Housing Stability Answer Date Recorded Do you currently live in a s helter or have no steady place to sleep at night? No 09/24/2022 READ ONLY Do you think you a re at risk of becoming homeless? No 09/24/2022 Does your family worry about paying for your home or becoming homeless? (Household - for ages 0-17 years) Not on file 0 09/24/2022 Are you homeless or worried that you might be in the future? (Adult - for ages 18 years and over) Not on file Are you (or your family) mali eless or worried that you might be in the future? (Household - for ages 0-17 years) Not on file Food Insecurity Answer Date Recorded Do you need food for this week? No 09/24/2022 Are you able to get enough f ood for your family? (Household - for ages 0-17 years) Not on file 09/24/2022 Does your family need food t his week? (Household - for ages 0-17 years) Not on file 09/24/2022 Do you always have enough fo od for your family? (Household - for ages 0-17 years) Not on file 09/24/2022 Sex and Gender Information Value Date Recorded Sex Assigned at Male 07/24/2018 1:30 PM EDT Gender Identity Not on file Sexual Orientation Straight 07/24/2018 1: 30 PM EDT Job Start Date Occupation Industry Not on file Not on file Not on file documented as of this encounter Miscellaneous Notes * Telephone Encounter - Migdalia Luis RN - 12/25/2023 8:48 AM EDT Transitions of Care Note Reason for Referral:Recent Admission Phone visit for follow up: Inpatient Hospitalization Admitted to: [facility], Date: 12/23/23 Discharged to: Home, Date: 12/24/23 NEMESIO call not indicated due to patient admitted for planned knee replacement, follow up with PCP only as needed. documented in this encounter Plan of Treatment Upcoming Encounters Date Type Department Care Team (Late st Contact Info) Description 02/04/2024 11:40 AM EST Office Visit Family Practice [facility] [place] [address] [facility] [place] [address] Len Banda III, MD [address] [facility] [place] [address] Scheduled Procedures Name Priority Associated Diagnoses Date/Ti me COLONOSCOPY FLEXIBLE PROXIMA L DIAGNOSTIC Recall History of colon polyps Family history of colon cancer Health Maintenance Due Date Last Done Comments Adult Wellness Visit 12/08/2013 Depression Screening 11/08/2022 11/08/2021 DTap/Tdap Vaccines (3 - Td or Tdap) 02/27/2023 02/27/2013, 01/06/2008 Colonoscopy 08/27/2023 08/26/2018, 07/30, 02/05/2013, Additional history exists GFR 09/19/2023 09/18/2022, 10/29, 01/27/2019, Additional history exists COVID-19 Vaccine ( - season) 2023 01/09/2022 Influenza Vaccine (FLU shot) (#1) 2023 01/15/2023, 12/28/2021, 03/22/2021, Additional history exists Albumin/Creatinine Ratio 12/28/2024 12/28/2021 Pneumococcal Vaccine: 65+ Years Completed 11/25/2016, 01/31/2015 RETIRED - COLONOSCOPY-EVERY 5 YRS AGES 18-100 Discontinued 08/26/2018, 08/26/2018, 02/05/2013, Additional history exists Zoster Vaccines Completed 05/18/2019, 12/31, 03/12/2013 HPV (Gardasil) Vaccine Aged Out No lo nger eligible based on patient's age to complete this topic Hepatitis B Vaccine Aged Out No longe r eligible based on patient's age to complete this topic MENINGOCOCCAL (MENACTRA/MENVEO) Aged Out No longer eligible based on patient's age to complete this topic documented as of this encounter Medical Devices Not on filedocumented as of this encounter Advance Directives * Full Code (Latest Code Status on File) Date Activated Date Inactivated Comments 09/02/2008 3:34 PM 09/03/2008 3:24 PM This order ref lects the patients wishes and were consensually agreed upon. Care Teams Greenhouse Superintendent Relationship Specialty Start Date End Date Len Banda III, MD [address] [facility] [place] [address] PCP - General Family Medicine 02/04/18 documented as of this encounter
--- NOTE | 2024-01-02 10:39 | Electrocardiogram Report ---
Test Reason : Blood Pressure : */* mmHG Vent. Rate : 63 BPM Atrial Rate : 63 BPM P-R Int : 208 ms QRS Dur : 86 ms QT Int : 432 ms P-R-T Axes : 49 -35 1 degrees QTcB Int : 442 ms Normal sinus rhythm Left axis deviation Low voltage QRS Abnormal ECG When compared with ECG of 12-Apr-2023 22:16, No significant change was found Confirmed by Yadiel Walton ([id number]) on 01/02/2024 10:39:38 AM Referred By: REFERRED SELF Confirmed By: Yadiel Walton
--- NOTE | 2024-01-02 11:21 | CT Scan Report ---
CT OF THE HEAD WITHOUT CONTRAST CLINICAL HISTORY: ffup, head trauma COMPARISON STUDY: MRI of the brain September 17, 2022. Head CT January 01, 2024. CT DOSE: 625.8 mGy.cm TECHNIQUE: Helical axial images of the head were obtained without IV contrast. Automated exposure con trol was utilized for the study. A dose lowering technique was utilized adhering to the principles o f ALARA. FINDINGS: No acute intracranial hemorrhage, midline shift or mass effect is present. Mild ventricular dilatation is unchanged and likely related to atrophy. The basal cisterns are patent. No extra-axial collections are present. There are no findings to suggest acute dural sinus thrombosis or acute terr itorial infarct. There are no calvarial fractures. There are postoperative findings within the sinuse s. Moderate sinus mucosal thickening is present. There are air-fluid levels within the right frontal, right sphenoid and right maxillary sinuses. Moderate-sized capsule thickening is present. IMPRESSION: 1. No acute intracranial findings. 2. No calvarial fracture. 3. Sinus mucosal thickening with air-fluid levels, as described above. ACT 112: Negative or not required by law. Electronically signed by: Mati Fitzgerald M.D. 01/02/2024 11:18 AM
--- NOTE | 2024-01-02 12:22 | Ultrasound Report ---
US carotid doppler BI CLINICAL HISTORY: 78 years-old Male with Syncope. COMPARISON: None TECHNIQUE: Multiple real time sonographic images of the carotid bifurcations were obtained assessing reyes scale, color Doppler and spectral wave form appearance FINDINGS: RIGHT CAROTID: The peak systolic velocity within the right ICA measures 97 cm/sec. The end diastoli c velocity measured 25 cm/sec. The ICA to CCA ratio measured 0.9 which correlates with a stenosis of 0-50%. LEFT CAROTID: The peak systolic velocity within the left ICA measures 343 cm/sec. The end diastolic velocity measured 88 cm/sec. The ICA to CCA ratio measured 3.1 which correlates with a stenosis of g reater than 70%. Additionally, there are elevated peak systolic velocities within the external carot id artery measuring up to 400 cm/s. Prominent atherosclerotic plaque of the carotid bulb and proximal internal and external carotid arteries. There is normal antegrade vertebral flow bilaterally. IMPRESSION: 1. Prominent atherosclerotic plaque of the left carotid bulb results in high-grade stenosis of the l eft ICA. 2. No hemodynamically significant stenosis of the right ICA. ACT 112: Negative or not required by law. The above report was generated using voice recognition software. It may contain grammatical, syntax o r spelling errors. Electronically signed by: Fernie Ocampo M.D. 01/02/2024 12:20 PM
[2024-01-02] MEDS: AMOXICILLIN/CLAVULANATE 875 MG TAB PO SCH (13:28)
--- NOTE | 2024-01-02 14:35 | History & Physical Report ---
Date of Service January 02, 2024 Assessment & Plan (1) Stenosis of left internal carotid artery: Plan: Duplex shows a significant narrowing of his left internal carotid artery. Will order a CTA to confirm the amount of narrowing. He is asymptomatic at this time from carotid disease. If he does have a significant narrowing then intervention either CEA or TCAR will be discussed. If the narrowing is not significant on CTA, then followup with duplex will be needed in 6 months. That will be arranged through our office. Thank you very much for letting us participate in the care of this patient. Admission and Anticipated Discharge Date Admission Date: January 02, 2024 History of Present Illness Chief Complaint: Left internal carotid artery stenosis Primary Care Provider: Len Banda MD This is a 78yo male who was admitted for recurrent episodes of syncope with hypotension. He has not complained of any focal deficits with these episodes. He denies any TIA's, CVA's or amaurosis episodes. He denies any claudication. He denies any history of heart problems. Allergies Allergy/AdvReac Type Severity Reaction Status Date / Time pollen extracts Allergy Intermediate NASAL Verified 12/23/23 06:51 CONGESTION & DRAINAGE Home Medications Medication Instructions Recorded Confirmed Type atorvastatin 40 mg tablet 40 mg PO QAM 11/08/19 01/02/24 History candesartan 32 mg tablet 32 mg PO QAM 11/08/19 01/02/24 History fluticasone propionate 50 2 spray intranasal QAM PRN Allergy 11/16/21 01/02/24 History mcg/actuation nasal Symptoms spray,suspension betamethasone dipropionate 0.05 % 1 applic topical BID PRN Skin 04/12/23 01/02/24 History topical cream Irritation ezetimibe 10 mg tablet 10 mg PO QAM 04/12/23 01/02/24 History amlodipine 10 mg tablet 10 mg PO HS #30 tabs 04/13/23 01/02/24 Rx hydrochlorothiazide 25 mg tablet 25 mg PO QAM 08/13/23 01/02/24 History acetaminophen 500 mg tablet 1,000 mg (2 x 500 mg) PO TID pain 12/21/23 01/02/24 Rx (Tylenol Extra Strength) 30 days #180 tabs aspirin 81 mg tablet,delayed 81 mg PO BID 45 days #90 tabs 12/21/23 01/02/24 Rx release (Rebecca Low Dose Aspirin) ondansetron 4 mg disintegrating 4 mg PO Q8 PRN nausea #20 tabs 12/21/23 01/02/24 Rx tablet oxycodone 5 mg tablet 5 - 10 mg (1 - 2 x 5 mg) PO Q6 PRN 12/21/23 01/02/24 Rx pain #40 tabs sennosides 8.6 mg tablet (Senokot) 8.6 mg PO BID prevent constipation 12/21/23 01/02/24 Rx 14 days #28 tabs tamsulosin 0.4 mg capsule (Flomax) 0.4 mg PO DAILY #7 caps 12/21/23 01/02/24 Rx Past Med/Surg History Problem List (Updated 01/02/24 @ 14:32 by Dave Peck MD) 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 DARSHAN (acute kidney injury) (Acute) Syncope and collapse (Acute) Status post left knee replacement Left knee DJD Hypertension (Acute) Subacromial impingement of right shoulder DJD of right AC (acromioclavicular) joint Biceps tendinitis of right shoulder Complete rotator cuff tear or rupture of right shoulder, not specified as traumatic Encounter for pre-operative examination Medical History DJD (degenerative joint disease) MEÑO (obstructive sleep apnea) Post surgery- no device PVD (peripheral vascular disease) Per records TIA (transient ischemic attack) Per records 2013 - patient denies/has no recollection of TIA Hx of hepatitis at 21 yrs old, treated Seasonal allergies Hx of syncope (03/2023) x 2 episodes (08/2022 and 03/2023), r/t medications and "sitting too long on a bar stool, cutting off circulation"; no issues since med adjustment Vertebral artery stenosis Per 09/17/22 head CTA= Multifocal high-grade stenoses of the right vertebral and basilar arteries. Per inpatient neuro consult 09/20/22= "Vertigo in the setting of VBA stenosis and uncontrolled HTN. Given the relatively unchanged vascular stenosis, this is likely secondary to HTN... No further neurological work up, not a chris te for cerebrovascular surgical intervention. " Carotid stenosis Left > right side Per 09/17/22 neck CTA= <50% stenosis to ICAs History of kidney stones Hyperlipidemia Hypertension Surgical History History of arthroscopy of left shoulder Hx of sinus surgery (2022) nasal polyps History of arthroscopy of left shoulder History of colonoscopy 2018 History of appendectomy History of tonsillectomy Family History Other Heart disease Social History Smoking Status: Never smoker Second Hand Exposure: No; Do You Dip or Chew Tobacco: No; Hx Alcohol Use: Yes Alcohol type: wine Hx Substance Use: Yes Last Used Substance: Unknown Last Used Substance Other:: advised not to use prior to surgery Preferred Language: Greenlandic Communication Ability: Effective Visual Impairment: No Limitations Senior Network Systems Engineer Required: No Beliefs That Will Affect Care: None Current Living Situation: Spouse and Family Current Living Situation Comment: Feels Safe at Home: Yes Safety Concerns: Feels Safe At This Time Assistive Devices: Walker Review of Systems All systems reviewed & are unremarkable except as noted in HPI & below Physical Exam Constitutional: WD/WN, vitals as above Neck: trachea midline Respiratory: normal respiratory effort, lungs clear to auscultation Cardiovascular: RRR, no murmur, no edema Vessels: + carotid bruit (left side) and normal peripheral pulses Extremities: normal capillary refill Gastrointestinal (Abdomen): Inspection/Auscultation: abdomen normal to inspec tion; abdomen not distended Percussion/Palpation: abdomen soft; abdomen nontender Musculoskeletal: Extremities: strength 5/5 throughout Neurologic: CN's II-XI intact bilaterally and moves all extremities Psychiatric: A+Ox3, euthymic affect Results & Data Vital Signs (Past 12 Hours) Vital Signs Temp Pulse Pulse Resp BP Pulse Ox O2 Del Method 01/02/24 11:11 36.6 C 65 18 154/68 H 99 Room Air 01/02/24 07:13 64 01/02/24 07:12 36.5 C 58 L 18 131/75 95 Room Air 01/02/24 07:00 64 01/02/24 03:26 67 01/02/24 03:18 Room Air 01/02/24 03:11 36.6 C 64 16 138/74 97 Room Air Code Status & VTE Plan VTE Prophylaxis Plan VTE Prophylaxis will be ordered: Yes
--- NOTE | 2024-01-02 15:18 | Hospitalist Progress Note ---
Date of Service January 02, 2024 Assessment & Plan (1) Syncope and collapse: Plan: Recurrent syncope Likely orthostasis secondary to dehydration DD: Due to carotid artery stenosis H/O SCN 5A gene mutation Presented with low blood pressure in ED --CT head:No acute intracranial findings. No calvarial fracture. Also showed findings suggestive of sinusitis Received IV fluids Monitor on telemetry to rule out arrhythmias Appreciate cardiology input Needs ZIO monitor as outpatient Acute kidney injury Likely due to poor oral intake/medications Creatinine 1.4 on presentation Continue IV fluids Candesartan held for now HCTZ discontinued Monitor renal function and avoid nephrotoxic agents as able Chronic carotid artery stenosis PVD --Carotid Doppler:Prominent atherosclerotic plaque of the left carotid bulb results in high-grade stenosis of the left ICA. No hemodynamically significant stenosis of the right ICA. 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 Discussed with radiologist on-call--findings of fluid density nonspecific/nonsignificant MEÑO S/P surgery per record Hyperglycemia rule out DM Postop anemia, improving Prediabetes HbA1c 5.7 DVT Px: on Aspirin 81mg BID post knee surgery Code status Full code Admission and Anticipated Discharge Date Admission Date: January 02, 2024 Subjective Patient is seen and examined at bedside States having some discomfort of knee at the site of surgery Denies any chest pain, dyspnea, nausea, vomiting, dizziness Discussed with cardiology today Review of Systems Review of Systems: All systems reviewed & are unremarkable except as noted in Subjective Physical Exam Physical Exam: Physical Exam: Vitals signs as noted above General Appearance:Moderately built and nourished, no apparent distress Head: normocephalic, Atraumatic Eyes: normal inspection, EOMI Neck: supple, Trachea midline Respiratory/Chest: Normal breath sounds, CTA, No accessory muscle use Cardiovascular: S1, S2, No murmur Abdomen/GI:Soft, Non tender, Bowel sounds present Extremities/Musculoskeletal:normal inspection, no edema, + left knee surgical site in dressing Neurologic/Psych:AAOX3, grossly no focal neurological deficits Skin: normal color, warm Results & Data Results & Data Vital Signs (Past 12 Hours) Vital Signs Temp Pulse Pulse Resp BP Pulse Ox O2 Del Method 01/02/24 11:11 36.6 C 65 18 154/68 H 99 Room Air 01/02/24 07:13 64 01/02/24 07:12 36.5 C 58 L 18 131/75 95 Room Air 01/02/24 07:00 64 01/02/24 03:26 67 01/02/24 03:18 Room Air Laboratory Results Short CBC 01/01/24 01/02/24 Range/Units 21:30 05:38 WBC 15.40 H 14.71 H (4.8-10.8) K/ul Hgb 12.3 L 12.9 L (14.0-18.0) g/dl Hct 36.3 L 38.3 L (42.0-52.0) % Plt Count 398 339 (130-400) K/uL BMP 01/01/24 01/02/24 21:30 05:38 Sodium 134 L 136 Potassium 4.2 4.3 Chloride 99 106 Carbon Dioxide 22 21 BUN 39 H 37 H Creatinine 1.44 H 1.10 D Glucose 170 H 96 Calcium 9.1 8.9 Cardiac Enzymes 01/01/24 Range/Units 21:30 Total Creatine Kinase 58 (30-223) U/L Liver Function 01/01/24 Range/Units 21:30 Total Bilirubin 1.4 H (0.2-1.0) mg/dl AST 24 (13-39) U/L ALT 31 (7-52) U/L Alkaline Phosphatase 77 (34-104) U/L Albumin 4.2 (3.4-5.0) gm/dl Urine 01/02/24 Range/Units 00:50 Urine Color Yellow Urine Appearance Clear (Clear) Urine pH 5.0 (4.5-7.5) Ur Specific [place] 1.045 H (1.000-1.030) Urine Protein Negative (Negative) Urine Glucose (UA) Negative (Negative)
[2024-01-02] MEDS: LACTATED RINGER'S 1,000 ML IV ONE (16:31)
[2024-01-02] MEDS: ASPIRIN 81 MG ECTAB PO SCH (20:54)
[2024-01-02] MEDS: amLODIPine BESYLATE 5 MG TAB PO SCH (21:03)
[2024-01-02] MEDS: LORATADINE 10 MG TAB PO ONE (23:14)
[2024-01-02] MEDS: diphenhydrAMINE 2%/ZINC 0.1% CREAM 28.4GM TUBE EXT PRN (23:14)
[2024-01-03] MEDS: ACETAMINOPHEN 325 MG TAB PO PRN (04:55)
[2024-01-03 06:59] LABS: Hematocrit (blood only) 33.8 % (42.0-52.0); Mean Corpuscular Hemoglobin 28.9 pg (25.0-34.0); Mean Corpuscular Hgb Conc 32.5 g/dL (32.0-36.0); Mean Corpuscular Volume 88.9 fL (80.0-100.0); Mean Platelet Volume 8.9 fL (9.4-12.4); Platelet Count 312 K/uL (130-400); RDW Coefficient of Variation 12.1 % (11.5-14.5); White Blood Count 11.78 K/ul (4.8-10.8)
[2024-01-03 07:11] LABS: BUN Creatinine Ratio 25.5 (10-20); Calcium 8.5 mg/dl (8.6-10.3); Creatinine Clr Calc Pharmacy 70.7 ml/min; Magnesium 1.8 mg/dl (1.7-2.4); Potassium 4.2 mmol/L (3.5-5.1)
[2024-01-03 07:34] VITALS: RESP 18
--- NOTE | 2024-01-03 07:48 | Communication Note ---
Date of Service: January 03, 2024 From vascular standpoint, can d\c after cta. We will contact him for follow up.
--- NOTE | 2024-01-03 10:41 | Cardiology Progress Note ---
<Statement entered by Cailin Salazar DO - 01/03/24 10:48> I have reviewed the advanced practitioner's documentation and agree with the plan of care. I accept the responsibility for the associated risk. Pt seen in cardiology follow up due to syncope of unclear etiology possible a vasovagal and orthostatic hypotension related. Pt has not had any arrhythmia on telemetry overnight Given his SCN5A gene positive from myCode testing and recurrent syncope recommend a loop insertion for retirement cardiac monitoring; this can be done as an out patient I will have my office call him next week to arrange for the procedure scheduling He can be discharged home today after he ambulates the halls Stop HCTZ I discussed the case and my recommendations with the hospitalist over tiger text and he agreed with my plan Date of Service January 03, 2024 Assessment & Plan (1) Syncope and collapse: (2) DARSHAN (acute kidney injury): (3) Status post left knee replacement: (4) Carotid stenosis: (5) Monoallelic mutation of SCN5A gene: Plan 01/02/24: Patient admitted with recurrent syncopal episode. Head CT negative. Etiology uncertain, but possibly due to dehydration/volume depletion in setting of post op knee, possible opioid and alcohol consumption. Chest CTA was negative for PE. Lower BP on arrival with DARSHAN. IV fluids administered and BP and renal function improved this morning. No recurrent symptoms. Would stop HCTZ given issues with recurrent dehydration. Continue amlodipine for antihypertensive and if needed would consider MARIBEL/ARB initiation. He does have genetic variant of the SCN5A gene which potentially predisposes him to arrhythmias, prolonged QT intervals. QT interval was normal on admission. He was to have outpatient ZIO monitor placed after last syncopal event, but this was not done. Would consider ZIO monitor and possible implantable loop recorder as outpatient. WBC was elevated post op and remains elevated on admission. No obvious source of infection. On chest CTA there was mention of fluid filled soft tissue abnormality near the descending aorta measuring 3.9 x 2.5 x 1.7 cm. Hospitalist to discuss with radiology. He also has a history of left sided carotid stenosis and right sided vertebral artery stenosis on past imaging Last neck CTA was August 2022. He was to have yearly follow up with vascular surgery in the past, but this was not done Would recommend repeat imaging prior to discharge. Discussed with hospitalist. At this time, no cardiac etiology has been found for his syncope, but would recommend monitoring for arrhythmias as an outpatient. ZIO to be arranged and possible EP appt to discuss loop recorder insertion given his genetic mutation potentially predisposing him to arrhythmias. 01/03/24: Patient feeling well this morning. No recurrent events. No arrhythmias on telemetry. Given abnormal genetic variant of the SCN5A gene he is high risk for arrhythmias. Recommend loop recorder implant as an outpatient. Will be arranged with Dr. Salazar next week. Office will call him on Friday Would recommend NOT resuming HCTZ on discharge. Monitor BP as outpatient F/U with vascular surgery given carotid stenosis Continue ASA and statin. Case discussed with Dr. Salazar I spent a total of 30 minutes on the date of service in preparation, delivery, and documentation of the care provided to this patient, excluding any time spent in the performance of separately billed services. Tammy Daley PA-C Department of Cardiology, [facility] This chart was completed in part utilizing Speech Voice Recognition Software. Grammatical errors, random word insertions, pronoun errors, and incomplete sentences are an occasional consequence of this system due to software limitations, ambient noise, and hardware issues. Any formal questions or concerns about the content, text, or information contained within the body of this dictation should be directly addressed to the provider for clarification. Admission and Anticipated Discharge Date Admission Date: January 02, 2024 Subjective Patient resting in bed comfortably. No recurrent dizziness or lightheadedness. BP controlled. No chest pain Review of Systems Review of Systems: All systems reviewed & are unremarkable except as noted in HPI & below Physical Exam Constitutional: WD/WN, vitals as above no acute distress Neck: normal visual inspection Cardiovascular: Rate/Rhythm: regular rate and regular rhythm Heart Sounds: normal S1 and normal S2; no murmur Vessels: no JVD Extremities: no edema Gastrointestinal (Abdomen): normal bowel sounds, soft, nontender, no hepatosplenomegaly Neurologic: PERRL, EOMI, accommodation nl, no face palsy, no dysarthria Psychiatric: A+Ox3, euthymic affect Results & Data Vital Signs (Past 12 Hours) Vital Signs Temp Pulse Resp BP Pulse Ox O2 Del Method 01/03/24 07:34 36.9 C 59 L 18 139/72 96 Room Air 01/03/24 02:40 36.6 C 72 16 146/78 H 95 Room Air 01/02/24 22:53 36.6 C 65 18 131/72 95 Room Air Laboratory Results CBC 01/03/24 Range/Units 06:11 WBC 11.78 H (4.8-10.8) K/ul RBC 3.80 L (4.70-6.10) M/uL Hgb 11.0 L (14.0-18.0) g/dl Hct 33.8 L (42.0-52.0) % Plt Count 312 (130-400) K/uL Comprehensive Metabolic Panel 01/03/24 Range/Units 06:11 Sodium 138 (136-145) mmol/L Potassium 4.2 (3.5-5.1) mmol/L Chloride 111 H (98-107) mmol/L Carbon Dioxide 23 (21-32) mmol/L BUN 24 H (6-23) mg/dl Creatinine 0.94 (0.6-1.4) mg/dl Glucose 98 (70-99(Fasting)) mg/dl Calcium 8.5 L (8.6-10.3) mg/dl Intake and Output 01/02/24 01/03/24 01/03/24 22:59 06:59 14:59 Intake Total 400 / 2860 1100 / 2860 Balance 400 / 2860 1100 / 2860 Intake: IV 1000 / 2000 Lactated Ringer's 1,000 ml @ 80 1000 / 1000 mls/hr IV .[id number] ONE Rx#: [id number] Oral 400 / 860 100 / 860 Other: # Unmeasured Voids 1 Diagnostic Findings Telemetry: NSR in the 70's. no arrhythmias Medications Administered Current Inpatient Medications Acetaminophen (Acetaminophen 325 Mg Tab) 650 mg PO QID PRN PRN Reason: pain/fever Stop: 02/01/24 00:32 Last Admin: 01/03/24 04:55 Dose: 650 mg Acetaminophen (Acetaminophen 500 Mg Tab) 1,000 mg PO Q8 GOLD Stop: 02/01/24 05:59 Last Admin: 01/03/24 04:58 Dose: Not Given Amlodipine Besylate (Amlodipine Besylate 5 Mg Tab) 10 mg PO HS GOLD Stop: 02/01/24 20:59 Last Admin: 01/02/24 21:03 Dose: 10 mg Amoxicillin/Clavulanate Potassium (Amoxicillin/Clavulanate 875 Mg Tab) 1 tab PO BIDM [facility]; Protocol Stop: 01/12/24 12:59 Last Admin: 01/03/24 09:35 Dose: 1 tab Aspirin (Aspirin 81 Mg Ectab) 81 mg PO BID [facility] Stop: 02/01/24 08:59 Last Admin: 01/03/24 09:36 Dose: 81 mg Atorvastatin Calcium (Atorvastatin 40 Mg Tab) 40 mg PO [facility] Stop: 02/01/24 08:59 Last Admin: 01/03/24 09:36 Dose: 40 mg Ezetimibe (Ezetimibe 10 Mg Tab) 10 mg PO [facility] Stop: 02/01/24 08:59 Last Admin: 01/03/24 09:36 Dose: 10 mg Promethazine HCl (Phenergan) 6.25 mg in 50.25 mls @ 201 mls/hr IV Q6H PRN PRN Reason: Nausea And Vomiting Stop: 02/01/24 00:32 Oxycodone HCl (Oxycodone Hcl Ir 5 Mg Tab (Immediate Release)) 5 - 10 mg PO QID PRN PRN Reason: Pain Stop: 01/16/24 00:32 Tamsulosin HCl (Tamsulosin Hcl 0.4 Mg Cap) 0.4 mg PO DAILY [facility] Stop: 02/01/24 08:59 Last Admin: 01/03/24 09:36 Dose: 0.4 mg Zinc Acetate/Diphenhydramine (Diphenhydramine 2%/Zinc 0.1% Cream 28.4gm Tube) 1 appln EXT QID PRN PRN Reason: itchy skin Stop: 02/01/24 22:01 Last Admin: 01/02/24 23:14 Dose: 1 appln (4) Carotid stenosis Laterality: left Qualified Code(s): I65.22 - Occlusion and stenosis of left carotid artery
[2024-01-03] MEDS: OPTIRAY 320 125ml IV ONE (10:50)
[2024-01-03 11:34] VITALS: BP 147/72; PULSE 69; TEMP 98.1; O2SAT 98
--- NOTE | 2024-01-03 12:10 | Hospitalist Progress Note ---
Date of Service January 03, 2024 Assessment & Plan (1) Syncope and collapse: Plan: Recurrent syncope Likely orthostasis secondary to dehydration DD: Due to carotid artery stenosis H/O SCN 5A gene mutation Presented with low blood pressure in ED --CT head:No acute intracranial findings. No calvarial fracture. Also showed findings suggestive of sinusitis Received IV fluids Monitor on telemetry to rule out arrhythmias Appreciate cardiology input Needs ZIO monitor as outpatient Needs follow-up with cardiology and vascular surgery on discharge Acute kidney injury Likely due to poor oral intake/medications Creatinine 1.4 on presentation Continue IV fluids Candesartan held for now HCTZ discontinued Cr back to baseline Monitor renal function and avoid nephrotoxic agents as able Chronic carotid artery stenosis PVD --Carotid Doppler:Prominent atherosclerotic plaque of the left carotid bulb results in high-grade stenosis of the left ICA. No hemodynamically significant stenosis of the right ICA. 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 Discussed with radiologist on-call--findings of fluid density nonspecific/nonsignificant MEÑO S/P surgery per record Hyperglycemia rule out DM Postop anemia, improving Prediabetes HbA1c 5.7 DVT Px: on Aspirin 81mg BID post knee surgery Code status Full code Admission and Anticipated Discharge Date Admission Date: January 02, 2024 Subjective Patient is seen and examined at bedside States feeling well today Offers no new complaints today Denies any chest pain, dyspnea, nausea, vomiting, dizziness Discussed with cardiology today Plan to be discharged home today Review of Systems Review of Systems: All systems reviewed & are unremarkable except as noted in Subjective Physical Exam Physical Exam: Physical Exam: Vitals signs as noted above General Appearance:Moderately built and nourished, no apparent distress Head: normocephalic, Atraumatic Eyes: normal inspection, EOMI Neck: supple, Trachea midline Respiratory/Chest: Normal breath sounds, CTA, No accessory muscle use Cardiovascular: S1, S2, No murmur Abdomen/GI:Soft, Non tender, Bowel sounds present Extremities/Musculoskeletal:normal inspection, no edema, + left knee surgical site in dressing Neurologic/Psych:AAOX3, grossly no focal neurological deficits Skin: normal color, warm Results & Data Results & Data Vital Signs (Past 12 Hours) Vital Signs Temp Pulse Pulse Resp BP Pulse Ox O2 Del Method 01/03/24 11:34 36.7 C 69 18 147/72 H 98 Room Air 01/03/24 08:00 67 01/03/24 07:34 36.9 C 59 L 18 139/72 96 Room Air 01/03/24 02:40 36.6 C 72 16 146/78 H 95 Room Air Laboratory Results Short CBC 01/03/24 Range/Units 06:11 WBC 11.78 H (4.8-10.8) K/ul Hgb 11.0 L (14.0-18.0) g/dl Hct 33.8 L (42.0-52.0) % Plt Count 312 (130-400) K/uL BMP 01/03/24 06:11 Sodium 138 Potassium 4.2 Chloride 111 H Carbon Dioxide 23 BUN 24 H Creatinine 0.94 Glucose 98 Calcium 8.5 L
--- NOTE | 2024-01-03 12:18 | Discharge Summary ---
Date of Service January 03, 2024 Admission HPI Per Admitting Provider This is a 78yo male who was admitted for recurrent episodes of syncope with hypotension. He has not complained of any focal deficits with these episodes. He denies any TIA's, CVA's or amaurosis episodes. He denies any claudication. He denies any history of heart problems. Admission Exam Per Admitting Provider GENERAL: Comfortable, pleasant, no respiratory distress SKIN: Pallor, warm HEENT: Pale palpebral conjunctivae, no ptosis, dry buccal mucosa NECK : Supple, no tenderness CHEST : CTA, no tenderness HEART : RRR, no obvious murmurs ABDOMEN: Some distention, nontender EXTREMITIES : Minimal LLE swelling, dressing over left knee with minimal tenderness, no other conspicuous deformities noted NEUROLOGIC : Coherent, no facial asymmetry, no other gross focality Principal Diagnosis Recurrent syncope Carotid artery stenosis Acute kidney injury Sinusitis Discharge Data Allergies Allergy/AdvReac Type Severity Reaction Status Date / Time pollen extracts Allergy Intermediate NASAL Verified 12/23/23 06:51 CONGESTION & DRAINAGE Consultations 01/02/24 00:00 ED Decision to Admit Stat 01/02/24 03:43 Consult Cardiology Routine 01/02/24 10:32 Consult Vascular Surgery Routine Procedures Performed Laboratory Results WBC 11.78 K/ul (4.8-10.8) H 01/03/24 06:11 RBC 3.80 M/uL (4.70-6.10) L 01/03/24 06:11 Hgb 11.0 g/dl (14.0-18.0) L 01/03/24 06:11 Hct 33.8 % (42.0-52.0) L 01/03/24 06:11 MCV 88.9 fL (80.0-100.0) 01/03/24 06:11 MCH 28.9 pg (25.0-34.0) 01/03/24 06:11 MCHC 32.5 g/dL (32.0-36.0) 01/03/24 06:11 RDW Std Deviation 39.0 fL (36.4-46.3) 01/03/24 06:11 RDW Coeff of Nicolás 12.1 % (11.5-14.5) 01/03/24 06:11 Plt Count 312 K/uL (130-400) 01/03/24 06:11 MPV 8.9 fL (9.4-12.4) L 01/03/24 06:11 Immature Gran % (Auto) 1.1 % 01/02/24 05:38 Neut % (Auto) 73.4 % 01/02/24 05:38 Lymph % (Auto) 14.8 % 01/02/24 05:38 Crowley % (Auto) 7.0 % 01/02/24 05:38 Eos % (Auto) 3.2 % 01/02/24 05:38 Baso % (Auto) 0.5 % 01/02/24 05:38 Neut # (Auto) 10.80 K/uL (1.40-6.50) H 01/02/24 05:38 Lymph # (Auto) 2.17 K/uL (1.20-3.40) 01/02/24 05:38 Crowley # (Auto) 1.03 K/uL (0.11-0.59) H 01/02/24 05:38 Eos # (Auto) 0.47 K/uL (0.00-0.50) 01/02/24 05:38 Baso # (Auto) 0.08 K/uL (0.00-0.20) 01/02/24 05:38 Immature Gran # (Auto) 0.16 K/uL (0.01-0.20) 01/02/24 05:38 PT 10.2 Seconds (9.0-12.0) 01/01/24 21:30 INR 0.9 (0.9-1.1) 01/01/24 21:30 Sodium 138 mmol/L (136-145) 01/03/24 06:11 Potassium 4.2 mmol/L (3.5-5.1) 01/03/24 06:11 Chloride 111 mmol/L (98-107) H 01/03/24 06:11 Carbon Dioxide 23 mmol/L (21-32) 01/03/24 06:11 Anion Gap 4 (3-11) 01/03/24 06:11 BUN 24 mg/dl (6-23) H 01/03/24 06:11 Creatinine 0.94 mg/dl (0.6-1.4) 01/03/24 06:11 Est Cr Clr Drug Dosing 70.7 ml/min 01/03/24 06:11 eGFR 84.01 01/03/24 06:11 BUN/Creatinine Ratio 25.5 (10-20) H 01/03/24 06:11 Glucose 98 mg/dl (70-99(Fasting)) 01/03/24 06:11 Estimat Average Glucose 117 mg/dl 01/01/24 21:30 Hemoglobin A1c 5.7 % (4.5-5.6) H 01/01/24 21:30 Calcium 8.5 mg/dl (8.6-10.3) L 01/03/24 06:11 Magnesium 1.8 mg/dl (1.7-2.4) 01/03/24 06:11 Total Bilirubin 1.4 mg/dl (0.2-1.0) H 01/01/24 21:30 AST 24 U/L (13-39) 01/01/24 21:30 ALT 31 U/L (7-52) 01/01/24 21:30 Alkaline Phosphatase 77 U/L (34-104) 01/01/24 21:30 Total Creatine Kinase 58 U/L (30-223) 01/01/24 21:30 Troponin I High Sens 5.6 pg/ml (0-20) 01/01/24 21:30 Total Protein 7.2 gm/dl (6.0-8.3) 01/01/24 21:30 Albumin 4.2 gm/dl (3.4-5.0) 01/01/24 21:30 Globulin 3.0 gm/dl (2.5-4.0) 01/01/24 21:30 Albumin/Globulin Ratio 1.4 (0.9-2) 01/01/24 21:30 Lipase 45 U/L (11-82) 01/01/24 21:30 TSH 5.687 uIu/ml (0.300-4.500) H 01/01/24 21:30 Free T4 0.84 ng/dl (0.61-1.60) 01/01/24 21:30 Urine Color Yellow 01/02/24 00:50 Urine Appearance Clear (Clear) 01/02/24 00:50 Urine pH 5.0 (4.5-7.5) 01/02/24 00:50 Ur Specific [place] 1.045 (1.000-1.030) H 01/02/24 00:50 Urine Protein Negative (Negative) 01/02/24 00:50 Urine Glucose (UA) Negative (Negative) 01/02/24 00:50 Urine Ketones Negative (Negative) 01/02/24 00:50 Urine Blood Negative (Negative) 01/02/24 00:50 Urine Nitrite Negative (Negative) 01/02/24 00:50 Urine Bilirubin Negative (Negative) 01/02/24 00:50 Urine Urobilinogen Negative (Negative) 01/02/24 00:50 Ur Leukocyte Esterase Negative (Negative) 01/02/24 00:50 Ethyl Alcohol mg/dL < 10.0 mg/dl (<10.0) 01/02/24 05:38 Impressions Chest CTA 01/01/24 21:52 Exam(s): CTA CHEST IV Amt: cc EXAM: CT Angiography Chest With Intravenous Contrast CLINICAL HISTORY: Reason for exam: PE; syncope. TECHNIQUE: Axial computed tomographic angiography images of the chest with intravenous contrast. CTDI is 26.35 mGy and DLP is 850.78 mGy-cm. Automated exposure control was utilized for the study. A dose lowering technique was utilized adhering to the principles of ALARA. MIP reconstructed images were created and reviewed. COMPARISON: CTA chest: 11/17/2021 FINDINGS: Motion-induced image degradation and suboptimal IV contrast bolus timings limits diagnostic sensitivity of the exam. Pulmonary arteries: No pulmonary embolism to the level of the segmental arterial branches. Distally evaluation is suboptimal due to technical factors. Aorta: No acute findings. No thoracic aortic aneurysm. Heart: Mild/moderate cardiomegaly. No significant pericardial effusion. No evidence of RV dysfunction. Lungs: Central airways are patent. Mild/moderate bronchial wall thickening. Centrilobular emphysema. Bibasilar linear areas of atelectasis and posteriorly subpleural chronic mild reticular interstitial thickening. No mass. No consolidation. Pleural space: Unremarkable. No significant effusion. No pneumothorax. Bones/joints: No acute fracture. No dislocation. Osteopenia. Mid/lower thoracic chronic appearing mild vertebral compression deformities. Moderate degenerative spondylitic changes. Increased kyphosis. Soft tissues: Redemonstrates a moderate size hiatal hernia containing predominantly mesenteric fat and paraesophageal lymph nodes. Along the right para-aortic region of the hiatal hernia a 3.9 x 2.5 x 1.7 cm well- defined fluid density structure also again noted (series 601 image 58, series 6 image 67).. Lymph nodes: Multiple small mediastinal and hilar lymph nodes. No lymphadenopathy by CT size criteria. Other findings: Right hepatodiaphragmatic interposition of the colon with increased stool. A distended stomach filled with ingested food debris/gas. . IMPRESSION: No pulmonary embolism noted to the level of the segmental branches. No aortic aneurysm or dissection. Mild/moderate cardiomegaly. Mild/moderate bronchial wall thickening. Centrilobular emphysema. Bibasilar linear atelectatic changes and posteriorly subpleural mild chronic reticular interstitial thickening. No consolidation. Redemonstrates a moderately large size hiatal hernia predominantly containing mesenteric fat and nonspecific small paraesophageal lymph nodes. Also again noted in hiatal hernia along the right side descending aorta a 3.9 x 2.5 x 1.7 cm nonspecific well-defined fluid density structure. . Electronically signed by: Ran Farrell MD, DABR 01/02/24 03:20 AM Chest X-Ray 01/01/24 21:52 XR chest 1V portable HISTORY: 78 years-old Male syncope COMPARISON: CT chest 01/01/2024 TECHNIQUE: AP view of the chest FINDINGS: Cardiac silhouette is normal. No pneumothorax, pleural effusion, airspace consolidation or pulmonary edema. Degenerative changes of the shoulders and spine. Small hiatal hernia. Widening of the right AC joint. Bones appear grossly intact. IMPRESSION: No acute process. ACT 112: Negative or not required by law. The above report was generated using voice recognition software. It may contain grammatical, syntax or spelling errors. Electronically signed by: Fernie Ocampo M.D. 01/02/2024 7:01 AM Carotid Doppler Study 01/02/24 10:31 US carotid doppler BI CLINICAL HISTORY: 78 years-old Male with Syncope. COMPARISON: None TECHNIQUE: Multiple real time sonographic images of the carotid bifurcations were obtained assessing reyes scale, color Doppler and spectral wave form appearance FINDINGS: RIGHT CAROTID: The peak systolic velocity within the right ICA measures 97 cm/sec. The end diastolic velocity measured 25 cm/sec. The ICA to CCA ratio measured 0.9 which correlates with a stenosis of 0-50%. LEFT CAROTID: The peak systolic velocity within the left ICA measures 343 cm/sec. The end diastolic velocity measured 88 cm/sec. The ICA to CCA ratio measured 3.1 which correlates with a stenosis of greater than 70%. Additionally, there are elevated peak systolic velocities within the external carotid artery measuring up to 400 cm/s. Prominent atherosclerotic plaque of the carotid bulb and proximal internal and external carotid arteries. There is normal antegrade vertebral flow bilaterally. IMPRESSION: 1. Prominent atherosclerotic plaque of the left carotid bulb results in high- grade stenosis of the left ICA. 2. No hemodynamically significant stenosis of the right ICA. ACT 112: Negative or not required by law. The above report was generated using voice recognition software. It may contain grammatical, syntax or spelling errors. Electronically signed by: Fernie Ocampo M.D. 01/02/2024 12:[address] 01/02/24 11:00 CT OF THE HEAD WITHOUT CONTRAST CLINICAL HISTORY: ffup, head trauma COMPARISON STUDY: MRI of the brain September 17, 2022. Head CT January 01, 2024. CT DOSE: 625.8 mGy.cm TECHNIQUE: Helical axial images of the head were obtained without IV contrast. Automated exposure control was utilized for the study. A dose lowering technique was utilized adhering to the principles of ALARA. FINDINGS: No acute intracranial hemorrhage, midline shift or mass effect is present. Mild ventricular dilatation is unchanged and likely related to atrophy. The basal cisterns are patent. No extra-axial collections are present. There are no findings to suggest acute dural sinus thrombosis or acute territorial infarct. There are no calvarial fractures. There are postoperative findings within the sinuses. Moderate sinus mucosal thickening is present. There are air- fluid levels within the right frontal, right sphenoid and right maxillary sinuses. Moderate-sized capsule thickening is present. IMPRESSION: 1. No acute intracranial findings. 2. No calvarial fracture. 3. Sinus mucosal thickening with air-fluid levels, as described above. ACT 112: Negative or not required by law. Electronically signed by: Mati Fitzgerald M.D. 01/02/2024 11:18 AM Ordered Studies 01/01/24 21:52 CT angio chest PE protocol Stat CT head/brain wo con Stat 01/02/24 10:31 US carotid doppler BI Routine 01/02/24 11:00 CT head/brain wo con Urgent 01/02/24 14:27 CTA neck with con [CT angio neck with con] Routine Hospital Course (1) Syncope and collapse: Recurrent syncope Likely orthostasis secondary to dehydration DD: Due to carotid artery stenosis H/O SCN 5A gene mutation Presented with low blood pressure in ED --CT head:No acute intracranial findings. No calvarial fracture. Also showed findings suggestive of sinusitis Received IV fluids Monitor on telemetry to rule out arrhythmias Appreciate cardiology input Needs ZIO monitor as outpatient Needs follow-up with cardiology and vascular surgery on discharge Acute kidney injury Likely due to poor oral intake/medications Creatinine 1.4 on presentation Continue IV fluids Candesartan held for now HCTZ discontinued Cr back to baseline Monitor renal function and avoid nephrotoxic agents as able Chronic carotid artery stenosis PVD --Carotid Doppler:Prominent atherosclerotic plaque of the left carotid bulb results in high-grade stenosis of the left ICA. No hemodynamically significant stenosis of the right ICA. 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 Discussed with radiologist on-call--findings of fluid density nonspecific/nonsignificant MEÑO S/P surgery per record Hyperglycemia rule out DM Postop anemia, improving Prediabetes HbA1c 5.7 DVT Px: on Aspirin 81mg BID post knee surgery Code status Full code Total Time Total Time Spent Total Time Spent (In Minutes): 47 minutes Discharge Plan Discharge Items Patient Disposition: Home - Self-Care Reason For Visit: SYNCOPE Discharge Diagnosis: Recurrent syncope Carotid artery stenosis Acute kidney injury Sinusitis Activity: Per Instructions section Exercise/Sports: Wait until after follow-up appointment Non-emergency contact: Primary Care Provider, Surgeon and Quality Assurance Director Call non-emergency contact if: you have any medication questions, your symptoms worsen, your pain is concerning for you and you have a fever Follow-up/Referrals: Len Banda MD [Primary Care Provider] - (Date & Time 01/06/2024 3:20 PM Provider Chhaya Mitchell MD Department [facility] ) Dave Peck MD [Physician] - Diet: Heart Healthy Addtl Attending Provider Instructions: Follow-up with your primary care physician Dr. Banda on01/06/2024 3:20 PM Follow-up with your weed eradicator Dr. Bartholomew as recommended for outpatient ZIO monitor Follow-up with your vascular surgeon Dr. Peck in 2-3 weeks -- Complete the antibiotic course Augmentin as prescribed. Seek immediate medical attention if your symptoms reoccur or worsen Please take all medications as instructed on discharge list below. Please call if you have any questions or problems. You can reach a [facility] hospitalist on duty at [facility] 24 hours a day by calling [phone] Pending Studies at Discharge: Yes Studies:: Neck CTA results Stand-Alone Forms: My [facility] [employer], Smoking Cessation Medications and DC Order Prescriptions: New amoxicillin-pot clavulanate 875-125 mg Tablet 1 tab PO BIDM Qty: 11 0RF Advanced Probiotic 625 mg (10 billion cell) Capsule 1 cap PO DAILY Qty: 7 0RF Continued oxycodone 5 mg tablet 5 - 10 mg PO Q6 PRN (Reason: pain) Qty: 40 0RF Rx Instructions: Take as needed for pain ondansetron 4 mg tablet,disintegrating 4 mg PO Q8 PRN (Reason: nausea) Qty: 20 1RF Rx Instructions: Take as needed for nausea sennosides [Senokot] 8.6 mg tablet 8.6 mg PO BID 14 Days Qty: 28 0RF Rx Instructions: Take two times a day to prevent/treat constipation acetaminophen [Tylenol Extra Strength] 500 mg tablet 1,000 mg PO TID 30 Days Qty: 180 0RF Rx Instructions: Take 3 times per day to lessen pain aspirin [Rebecca Low Dose Aspirin] 81 mg tablet,delayed release (DR/EC) 81 mg PO BID 45 Days Qty: 90 0RF Rx Instructions: Take to prevent blood clots. tamsulosin [Flomax] 0.4 mg capsule 0.4 mg PO DAILY Qty: 7 0RF Rx Instructions: Begin night BEFORE surgery to prevent urinary retention atorvastatin 40 mg Tablet 40 mg PO QAM candesartan 32 mg Tablet 32 mg PO QAM fluticasone propionate 50 mcg/actuation spray,suspension 2 spray INTRANASAL QAM PRN (Reason: Allergy Symptoms) betamethasone dipropionate 0.05 % Cream 1 applic TOPICAL BID PRN (Reason: Skin Irritation) ezetimibe 10 mg tablet 10 mg PO QAM amlodipine 10 mg tablet 10 mg PO HS Qty: 30 0RF Discontinued hydrochlorothiazide 25 mg Tablet 25 mg PO QAM Discharge Orders: Discharge Order (Routine); Ordered 01/03/24 Ordered By: Gopi Lynn Admission Data Admit Date/Time: 01/02/24 00:32 Attending Provider: Gopi Lynn Admit Provider: Fredrick Banks Primary Care Provider: Len Banda Other Providers: Fredrick Banks; Janette Hooper; Salas Mclaughlin; Gorge Bartholomew; Tevin Mclean; Turner Carrillo; Luis Ramirez; Tammy Daley; Cailin Salazar; Khloe Henderson; Janette Anderson; Abiel Najera; Olvin Perdue; La Farley; Oanh Zacarias; Verona Mims; Willy Spaulding; Francis Del Toro Rachael D; Dave Peck
--- NOTE | 2024-01-03 13:34 | CT Scan Report ---
CT ANGIOGRAPHY OF THE NECK WITH CONTRAST CLINICAL HISTORY: Carotid stenosis. COMPARISON STUDY: CTA of the neck September 17, 2022. MRA of the neck June 15, 2013. Carotid ultrasound January 02, 2024. Technique: CT angiography of the carotid and vertebral arteries was obtained using [employer] and 3D rec onstruction on an independent workstation. NASCET criteria was utilized. Automated exposure control was utilized for the study. A dose lowering technique was utilized adhering to the principles of ALA RA. CT DOSE: 467.37 mGy.cm Findings: This exam is moderately compromised by motion artifact. Occlusion of the proximal right brionna tebral artery with reconstitution at the level of the mid cervical vertebral artery is unchanged sinc e CT of September 17, 2022. There are no stenoses within the right common carotid or cervical internal car otid artery. There is moderate plaque within the left carotid bifurcation. This results in approximat e 70% stenosis of the proximal left internal carotid artery. Vessel measures 1.9 mm at site of narrow ing and 5.1 mm distally. No additional stenoses within the left internal carotid artery are identifie d within the neck. There is no cervical spine fracture. Prevertebral edema. IMPRESSION: 1. Exam mildly compromised by motion artifact. Approximate 70% short segment stenosis of the proximal left internal carotid artery. 2. No stenoses within the cervical right internal carotid artery. 3. 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 ACT 112: Negative or not required by law. Electronically signed by: Mati Fitzgerald M.D. 01/03/2024 1:32 PM
[2024-01-04] MEDS ORDERED: ADVANCED PROBIOTIC 625 MG CAPSULE PO SCH (09:00)
== END 2024-01-03 13:53 | disposition home or self-care (01) | DRG 312 ==
LOC: ED 21:28 → INTOOBSV 01-02 00:32 → 2N 01-02 00:32